=== PATIENT | male | born 1930 | race Caucasian/White ===

== ENCOUNTER 2016-11-14 07:05 | Day surgery (SDC) | payer MEDICARE ==
[2016-11-09 16:34] VITALS: BMI 25.7
[~2016-11-14 07:05] MED LIST: LACTATED RINGERS 1,000 ML IV SCH; LIDOCAINE 1% 20 ML VIAL (10MG/ML) FOR IV START INTRADERMA PRN
[2016-11-14 07:27] VITALS: TEMP 96
[2016-11-14 07:34] LABS: Glucose,Whole Blood 103 mg/dL (75-99)
[2016-11-14] MEDS ORDERED: PROPOFOL 10 MG/ML 20 ML VIAL IV ONE (07:44)
--- NOTE | 2016-11-14 08:09 | P.PCN ---
Date of Procedure: 11/14/16 Procedure(s) Performed: BRIEF HISTORY: Patient is a 86-year-old pleasant white male, scheduled for an elective colonoscopy as a part of evaluation of intermittent rectal bleeding for the last few months duration. PROCEDURE PERFORMED: Colonoscopy with biopsy. PREOPERATIVE DIAGNOSIS: Intermittent rectal bleeding. IV sedation per Anesthesia. PROCEDURE: After informed consent was obtained, the patient, was brought into the endoscopy unit. IV conscious sedation was administered by Anesthesia under continuous monitoring. Initially the Olympus CF-160 flexible video colonoscope was then inserted in the rectum, gradually advanced into the cecum without any difficulty. Careful examination was performed as the scope was gradually being withdrawn. Ileocecal valve and the appendiceal orifice were visualized and appeared normal. Prep was excellent. Mucosa of the cecum, ascending colon, transverse colon, descending colon, sigmoid colon, appeared normal. There were extensive left sided diverticulosis seen. In the distal rectum there was circumferential erythema with mild friability of the mucosa consistent with proctitis versus rectal prolapse and multiple biopsies were done from this area. Retroflexion was performed in the rectum and no lesions were seen. The patient tolerated the procedure well. IMPRESSION: Extensive left sided diverticulosis Mucosal erythema with friability noted in the distal rectum consistent with either proctitis or rectal prolapse status post multiple biopsies RECOMMENDATIONS: Findings of this examination were discussed with the patient as well as his family. He was advised to follow with the biopsy results. He will be seen in office in 2 weeks..
[2016-11-14 08:15] VITALS: RESP 16
[2016-11-14 08:53] VITALS: BP 144/83; PULSE 60
== END 2016-11-14 09:10 | disposition home or self-care (01) ==
LOC: ORWHC2ENDO 07:05
PROVIDERS: ATTEND Internal Medicine Gastroenterology
DX: K62.89 Other specified diseases of anus and rectum (principal); K57.30 Diverticulosis of large intestine without perforation or abscess without bleeding; I25.10 Atherosclerotic heart disease of native coronary artery without angina pectoris; I10 Essential (primary) hypertension; E11.9 Type 2 diabetes mellitus without complications; N40.0 Benign prostatic hyperplasia without lower urinary tract symptoms; I25.2 Old myocardial infarction; Z79.82 Long term (current) use of aspirin; Z79.899 Other long term (current) drug therapy
CPT/HCPCS: 45380; 88305; 99153

== ENCOUNTER → 2016-11-30 | Outpatient (CLI) | payer MEDICARE ==
[2016-11-30 14:32] LABS: Calcium 9.3 mg/dL (8.4-10.2); Magnesium 1.8 mg/dL (1.6-2.3); Potassium 5.4 mmol/L (3.5-5.1); Total Bilirubin 0.7 mg/dL (0.2-1.3); Total Protein 7.2 g/dL (6.3-8.2)
[2016-11-30 14:34] LABS: Basophils # (A) 0.1 k/uL (0-0.2); Basophils % (A) 1 %; CH 30.2; CHCM 31.2; Eosinophils # (A) 0.5 k/uL (0-0.7); Eosinophils % (A) 8 %; HCT 35.6 % (39.0-53.0); HDW 2.37; HGB 11.2 gm/dL (13.0-17.5); Luc # (Auto) 0.26; Luc % (Auto) 4; Lymphocytes # (A) 1.9 k/uL (1.0-4.8); Lymphocytes % (A) 30 %; MCH 30.8 pg (25.0-35.0); MCHC 31.5 g/dL (31.0-37.0); MCV 97.5 fL (80.0-100.0); Mean Platelet Volume 8.2; Monocytes # (A) 0.5 k/uL (0-1.0); Monocytes % (A) 8 %; Neutrophils # (A) 3.1 k/uL (1.3-7.7); Neutrophils % (A) 49 %; RBC 3.65 m/uL (4.30-5.90); RDW 13.8 % (11.5-15.5); WBC 6.4 k/uL (3.8-10.6); WBC (Perox) 6.19
[2016-11-30 20:15] LABS: Hemoglobin A1C 6.2 % (4.2-6.1)
== END | disposition home or self-care (01) ==
LOC: LABWHC1 14:03
PROVIDERS: ATTEND Internal Medicine Geriatric Medicine
DX: N18.9 Chronic kidney disease, unspecified (principal); E11.9 Type 2 diabetes mellitus without complications; E05.90 Thyrotoxicosis, unspecified without thyrotoxic crisis or storm
CPT/HCPCS: 36415; 80053; 80061; 83036; 83735; 84439; 84443; 85025

== ENCOUNTER → 2017-04-05 | Outpatient (CLI) | payer MEDICARE | END | disposition home or self-care (01) | LOC: RADCTMAIN 13:01 | PROVIDERS: ATTEND Psychiatry & Neurology Neurology | DX: Z01.812 Encounter for preprocedural laboratory examination (principal); G70.00 Myasthenia gravis without (acute) exacerbation; Z13.89 Encounter for screening for other disorder | CPT/HCPCS: 82565; 84520 ==

== ENCOUNTER → 2017-04-17 | Outpatient (CLI) | payer MEDICARE ==
--- NOTE | 2017-04-17 13:38 | CT ---
EXAMINATION TYPE: CT chest w con DATE OF EXAM: 04/17/2017 COMPARISON: NONE HISTORY: Ocular Myasthenia Gravis CT DLP: 520 mGycm Automated exposure control for dose reduction was used. CONTRAST: CT scan of the chest is performed with IV Contrast, patient injected with 50 ml mL of Visipaque 320. FINDINGS: LUNGS: Interstitial changes are present, there is a thickened septal pleural line, interlobular septa l thickening. No pleural or pericardial effusion. MEDIASTINUM: There are no greater than 1 cm hilar or mediastinal lymph nodes. There is a hiatal herni a, fixed partial intrathoracic stomach is noted. No pericardial effusion is seen. There are coronary artery calcifications. AORTA: No additional significant abnormality is seen. OTHER: Degenerative disc changes in the visualized spine, there is a spinal curvature. IMPRESSION: Interstitial lung disease. Hiatal hernia with fixed intrathoracic stomach, coronary art ira disease.
== END | disposition home or self-care (01) ==
LOC: RADCTMAIN 10:50
PROVIDERS: ATTEND Psychiatry & Neurology Neurology
DX: J84.9 Interstitial pulmonary disease, unspecified (principal); I25.10 Atherosclerotic heart disease of native coronary artery without angina pectoris; Z13.89 Encounter for screening for other disorder
CPT/HCPCS: 82565; 84520; 71260; 36415; Q9967

== ENCOUNTER → 2017-12-20 | Outpatient (CLI) | payer MEDICARE ==
--- NOTE | 2017-12-20 09:54 | FL ---
EXAMINATION TYPE: FL sniff test without CXR DATE OF EXAM: 12/20/2017 COMPARISON: 04/17/2017 HISTORY: Right hemidiaphragm elevation TECHNIQUE: Real-time fluoroscopy with evaluation of the hemidiaphragms. 45 seconds of fluoroscopy lacey e was utilized with 2 images saved. FINDINGS: Real-time fluoroscopy was performed to evaluate motion of the hemidiaphragms. During inspi ration, expiration, and during sniffing the hemidiaphragms moved symmetrically although there is rede monstration of right hemidiaphragm elevation. No evidence of diaphragmatic paralysis was identified. A partial intrathoracic stomach is incidentally noted. IMPRESSION: 1. No fluoroscopic evidence of diaphragmatic paralysis. Right hemidiaphragm elevation is likely physi ologic/anatomic. 2. Incidental note of a partial intrathoracic stomach.
== END | disposition home or self-care (01) ==
LOC: RADFLMAIN 08:52
PROVIDERS: ATTEND Internal Medicine Geriatric Medicine
DX: J98.6 Disorders of diaphragm (principal)
CPT/HCPCS: 76000

== ENCOUNTER 2018-01-16 05:27 | Observation (INO) | payer MEDICARE ==
--- NOTE | 2018-01-16 05:54 | ED ---
General Adult HPI - General Chief complaint: Arrhythmia/Palpitations Stated complaint: Bradycardia Time Seen by Provider: 01/16/18 05:32 Source: patient, family, EMS, RN notes reviewed Mode of arrival: EMS Limitations: no limitations - History of Present Illness Initial comments: Patient is a pleasant 87-year-old male presenting to the emergency department for bradycardia. Patient originally went to [facility] for altered mental status. Blood sugar was low at 51. EMS provided sugar with resolution of symptoms. Patient has felt fine since that time. While there patient became bradycardic in the 40s a couple of times. Patient was given atropine. Patient states he never felt bad while he was there. Patient still feels normal at this time. No weakness or confusion. No chest pain or dyspnea. Patient does take atenolol 12.5 mg daily. Patient was transferred for cardiac care and possible heart catheterization/pacemaker - Related Data Home Medications Medication Instructions Recorded Confirmed Aspirin EC [Ecotrin Low Dose] 81 mg PO QAM 11/09/16 11/14/16 Atenolol 0.5 tab PO QAM 11/09/16 11/14/16 Atorvastatin [Lipitor] 10 mg PO QAM 11/09/16 11/14/16 Celecoxib [CeleBREX] 200 mg PO BID 11/09/16 11/14/16 Famotidine [Pepcid] 20 mg PO QAM 11/09/16 11/14/16 Gabapentin [Neurontin] 100 mg PO BID 11/09/16 11/14/16 HYDROcodone/APAP 5-325MG [[place] 1 tab PO Q6HR PRN 11/09/16 11/14/16 5-325] L.acidoph,Paracasei, B.lactis 1 cap PO QAM 11/09/16 11/14/16 [Probiotic] Levothyroxine Sodium [Synthroid] 88 mcg PO QAM 11/09/16 11/14/16 Lisinopril [Prinivil] 20 mg PO BID 11/09/16 11/14/16 Mylanta 1 applic PO DIRECTED PRN 11/09/16 11/14/16 Omeprazole [PriLOSEC] 40 mg PO DAILY 11/09/16 11/14/16 Propylene Glycol/Peg 400/Pf 2 drop BOTH EYES Q1HR 11/09/16 11/14/16 [Systane 0.3-0.4% Eye Drops] Tamsulosin HCl [Flomax] 0.4 mg PO HS 11/09/16 11/14/16 amLODIPine [Norvasc] 5 mg PO BID 11/09/16 11/14/16 guaiFENesin [Mucinex] 600 mg PO HS 11/09/16 11/14/16 Allergies Allergy/AdvReac Type Severity Reaction Status Date / Time No Known Allergies Allergy Verified 11/09/16 15:28 Review of Systems ROS Statement: Those systems with pertinent positive or pertinent negative responses have been documented in the HPI. ROS Other: All systems not noted in ROS Statement are negative. Constitutional: Denies: fever Eyes: Denies: eye pain ENT: Denies: ear pain Respiratory: Denies: cough Cardiovascular: Denies: chest pain Endocrine: Denies: fatigue Gastrointestinal: Denies: abdominal pain Genitourinary: Denies: dysuria Musculoskeletal: Denies: back pain Skin: Denies: rash Neurological: Reports: confusion (Resolved). Denies: headache, weakness Past Medical History Past Medical History: Cancer, Heart Failure, Diabetes Mellitus, Eye Disorder, Hyperlipidemia, Hypertension, Myocardial Infarction ([place]), Pneumonia, Thyroid Disorder Additional Past Medical History / Comment(s): Abd pain and diarrhea, blood to stool with hemorhoids. Hx Graves disease/radioactive iodine tx, silent [place], Basal skin CA, Back pain, Double vision.Denies prostate issues. Last Myocardial Infarction Date:: unknown History of Any Multi-Drug Resistant Organisms: None Reported Past Surgical History: Adenoidectomy, Appendectomy, Heart Catheterization, Joint Replacement, Orthopedic Surgery, Tonsillectomy Additional Past Surgical History / Comment(s): Ameya catarract surg, basal cell removals, 3 lt and 1 rt knee replacements. Lt knee surg for strept infection. Past Anesthesia/Blood Transfusion Reactions: Postoperative Nausea & Vomiting ( PONV) Past Psychological History: No Psychological Hx Reported Smoking Status: Former smoker Past Alcohol Use History: None Reported Past Drug Use History: None Reported - Past Family History Father Family Medical History: Cancer Additional Family Medical History / Comment(s): Colon CA. Daughter(s) Family Medical History: Cancer Additional Family Medical History / Comment(s): Thyroid CA. General Exam Limitations: no limitations General appearance: alert, in no apparent distress Head exam: Present: atraumatic Eye exam: Present: PERRL, EOMI, other (Eyelids are droopy) ENT exam: Present: normal oropharynx Neck exam: Present: normal inspection Respiratory exam: Present: normal lung sounds bilaterally Cardiovascular Exam: Present: regular rate, normal rhythm Expanded Peripheral pulses: 2+: Radial (R), Radial (L), Dorsalis Pedis (R), Dorsalis Pedis (L) GI/Abdominal exam: Present: soft. Absent: tenderness Extremities exam: Present: normal inspection Neurological exam: Present: alert. Absent: motor sensory deficit Psychiatric exam: Present: normal affect, normal mood Skin exam: Present: normal color Course Vital Signs 01/16/18 05:29 Temperature 98.0 F Pulse Rate 62 Respiratory 16 Rate Blood Pressure 145/90 O2 Sat by Pulse 99 Oximetry EKG Findings - EKG Comments: EKG Findings:: Normal sinus rhythm 65. ND 196. QRS 98. QT 446. QTc 463. Left axis. Septal Q waves. No acute ST change. Inferior Q waves. Medical Decision Making - Medical Decision Making Patient and family were made aware of plan. Case was discussed with Dr. North who will admit for observation with cardiology consult Disposition Clinical Impression: Bradycardia Disposition: ADMITTED IP TO THIS HOSP Referrals: Eron Good MD [Primary Care Provider] - 1-2 days Decision Time: 06:03
[2018-01-16] MEDS ORDERED: NALOXONE 0.4 MG/ML 1 ML VIAL IV PRN (06:03)
[2018-01-16 06:08] LABS: Glucose,Whole Blood 94 mg/dL (75-99)
[2018-01-16] MEDS: SODIUM CHLORIDE 0.9% 1,000 ML IV SCH (06:21)
[2018-01-16 06:48] LABS: T4, Free (Free Thyroxine) 0.84 ng/dL (0.78-2.19)
[2018-01-16 08:22] VITALS: BMI 23.4
[2018-01-16 08:29] LABS: Glucose,Whole Blood 119 mg/dL (75-99)
--- NOTE | 2018-01-16 08:39 | P.CRDCN ---
History of Present Illness Consult date: 01/16/18 Chief complaint: Dizziness/change in mental status History of present illness: This is a pleasant 87-year-old gentleman who sees Dr. LISSY Monge in the office as an outpatient on regular basis with a past medical history significant for diabetes on insulin, hypertension, and hyperlipidemia, was brought to the hospital by ambulance with a change in mental status. The patient was in his usual state of health until early this morning when his noticed that he was sweating as well as he was a slightly confused. Ambulance was called and when ambulance arrived he was hypoglycemic with a blood sugar in the 50s and the patient was given glucose and was taken to the emergency room at [facility] where over there he was also bradycardic with a heart rate in the 40s and he was given atropine. Since then he has been feeling better. He did not have any symptoms of chest pain or discomfort, and no shortness of breath, and no syncope. Please note that the patient was receiving atenolol as an outpatient. During his hospitalization, he has been maintaining sinus bradycardia with a lowest heart rate of 39 beats per minute. No evidence of sinus pauses or sinus arrest at. The EKG showed sinus bradycardia with nonspecific changes only. He does have hypertension and dyslipidemia but no coronary artery disease or coronary artery vascularization. No major cardiovascular surgery before. No history of smoking or alcohol use. Past Medical History Past Medical History: Cancer, Heart Failure, Diabetes Mellitus, Eye Disorder, Hyperlipidemia, Hypertension, Myocardial Infarction ([place]), Pneumonia, Thyroid Disorder Additional Past Medical History / Comment(s): Abd pain and diarrhea, blood to stool with hemorhoids. Hx Graves disease/radioactive iodine tx, silent [place], Basal skin CA, Back pain, Double vision.Denies prostate issues. Last Myocardial Infarction Date:: unknown History of Any Multi-Drug Resistant Organisms: None Reported Past Surgical History: Adenoidectomy, Appendectomy, Heart Catheterization, Joint Replacement, Orthopedic Surgery, Tonsillectomy Additional Past Surgical History / Comment(s): Ameya catarract surg, basal cell removals, 3 lt and 1 rt knee replacements. Lt knee surg for strept infection. Past Anesthesia/Blood Transfusion Reactions: Postoperative Nausea & Vomiting ( PONV) Past Psychological History: No Psychological Hx Reported Smoking Status: Former smoker Past Alcohol Use History: None Reported Additional Past Alcohol Use History / Comment(s): Smoked 1ppd x 30 yrs, quit for 40 yrs. Past Drug Use History: None Reported - Past Family History Father Family Medical History: Cancer Additional Family Medical History / Comment(s): Colon CA. Daughter(s) Family Medical History: Cancer Additional Family Medical History / Comment(s): Thyroid CA. Medications and Allergies Home Medications Medication Instructions Recorded Confirmed Type Aspirin EC [Ecotrin Low Dose] 81 mg PO QAM 11/09/16 01/16/18 History Atenolol 25 mg PO QAM 11/09/16 01/16/18 History Atorvastatin [Lipitor] 10 mg PO QAM 11/09/16 01/16/18 History Famotidine [Pepcid] 20 mg PO QAM 11/09/16 01/16/18 History Gabapentin [Neurontin] 100 mg PO TID 11/09/16 01/16/18 History L.acidoph,Paracasei, B.lactis 1 cap PO QAM 11/09/16 01/16/18 History [Probiotic] Propylene Glycol/Peg 400/Pf 2 drop BOTH EYES Q1HR PRN 11/09/16 01/16/18 History [Systane 0.3-0.4% Eye Drops] Tamsulosin HCl [Flomax] 0.4 mg PO HS 11/09/16 01/16/18 History amLODIPine [Norvasc] 5 mg PO BID 11/09/16 01/16/18 History Fluticasone/Salmeterol [Advair 1 puff INHALATION RT-BID 01/16/18 01/16/18 History 500-50 Diskus] Hydrocodone/Acetaminophen [[place] 1 tab PO Q6HR PRN 01/16/18 01/16/18 History 7.5-325] Insulin Glargine,Hum.rec.anlog 7 units SQ DAILY 01/16/18 01/16/18 History [Lantus Solostar] Insulin Lispro [humaLOG Kwikpen] See Protocol SQ AC-TID 01/16/18 01/16/18 History Levothyroxine Sodium [Levoxyl] 100 mcg PO DIRECTED 01/16/18 01/16/18 History Mycophenolate Mofetil [Cellcept] 500 mg PO BID 01/16/18 01/16/18 History Pyridostigmine [Mestinon] 60 mg PO TID 01/16/18 01/16/18 History Sodium Bicarbonate Tab 650 mg PO DAILY 01/16/18 01/16/18 History Allergies Allergy/AdvReac Type Severity Reaction Status Date / Time No Known Allergies Allergy Verified 11/09/16 15:28 Physical Exam Vitals: Vital Signs Temp Pulse Pulse Resp BP BP Pulse Ox 01/16/18 06:49 56 L 18 139/80 97 01/16/18 06:45 98.0 F 52 L 16 142/79 98 01/16/18 05:29 98.0 F 62 16 145/90 99 Intake and Output 01/15/18 01/16/18 01/16/18 22:59 06:59 14:59 Other: Weight 69.853 kg 69.853 kg - Constitutional General appearance: no acute distress - Respiratory Respiratory: bilateral: CTA - Cardiovascular Rhythm: regular Heart sounds: normal: S1, S2 Results Current Medications Generic Name Dose Route Start Last Admin Trade Name Freq PRN Reason Stop Dose Admin Amlodipine Besylate 2.5 mg 01/16/18 09:00 Norvasc PO DAILY CODEY Sodium Chloride 1,000 mls @ 20 mls/hr 01/16/18 06:15 01/16/18 06:21 Saline 0.9% IV 20 mls/hr .Q24H CODEY Administration Naloxone HCl 0.2 mg 01/16/18 06:03 Narcan IV Q2M PRN Opioid Reversal Intake and Output 01/15/18 01/16/18 01/16/18 22:59 06:59 14:59 Other: Weight 69.853 kg 69.853 kg Patient Weight 01/17/18 06:59 Weight 69.853 kg Assessment and Plan Assessment: Assessment #1 change in mental status which is secondary to hypoglycemia and or bradycardia #2 sinus bradycardia which is likely to be iatrogenic. #3 hypertension #4 dyslipidemia #5 diabetes Plan #1 hold the atenolol which was one of the home medication.I would add Norvasc to the current medical treatment regarding sinus tachycardia #2 check the TSH to rule out any thyroid disorder #3 obtain an echocardiogram was Doppler #4 follow-up with the patient. Thank you for allowing us participate in his care and we will continue following up with the patient
[2018-01-16] MEDS ORDERED: ARTIFICIAL TEARS-HYPROMELLOSE DROPS 15 ML BTL BOTH EYES PRN (09:06)
[2018-01-16] MEDS: cefTRIAXone IN SWFI 1,000 MG/10 ML SYRINGE IVP SCH (09:38)
[2018-01-16] MEDS: AZITHROMYCIN 500 MG in SODIUM CHLORIDE 0.9% 250 ML IVPB SCH (09:39)
[2018-01-16] MEDS: amLODIPine 2.5 MG TAB PO SCH (09:40)
[2018-01-16] MEDS: SODIUM BICARBONATE TAB 650 MG TAB PO SCH (09:40)
[2018-01-16] MEDS: FAMOTIDINE 20 MG TAB PO SCH (09:40)
[2018-01-16] MEDS: PYRIDOSTIGMINE 60 MG TAB PO SCH ×3 (09:41→21:28)
[2018-01-16] MEDS: GABAPENTIN 100 MG CAP PO SCH ×3 (09:41→21:28)
[2018-01-16] MEDS: LEVOTHYROXINE 125 MCG TAB PO SCH (09:41)
[2018-01-16] MEDS: MYCOPHENOLATE MOFETIL 250 MG CAP PO SCH ×2 (09:42→19:38)
[2018-01-16 11:40] LABS: Glucose,Whole Blood 138 mg/dL (75-99)
--- NOTE | 2018-01-16 11:42 | P.HPIM ---
History of Present Illness H&P Date: 01/16/18 Chief Complaint: Mental status changes This is an 87-year-old male patient of Dr. Dr. Good and Dr. LISSY Monge with past medical history of diabetes mellitus type 2 insulin requiring, hypertension, hyperlipidemia. Patient also has history of being treated for Graves' disease and underwent radiation treatment 2 years ago. He has now under treatment for myasthenia and continues to have trouble with double vision. He follows at [facility] is currently awaiting some test and will be starting on G infusions. Regarding his diabetes, he was diagnosed with diabetes mellitus type 2 and was on diet control for a long period of time but due to large dose of prednisone he is now requiring insulin blood prednisone is being tapered. He has been on 50 and is down 5 mg every month. Last he decreased to 10 mg daily. He is currently on Lantus 7 units in the morning as well as a sliding NovoLog scale with 5 units with breakfast, 7 units with lunch and supper. Patient states he very seldom has low blood sugars. At 3 in the morning apparently his blood sugar was down to 51 and his called 911. He was taken to [facility] and was also found to have a heart rate in the 40s. Patient denies having a cough, shortness of breath or flulike symptoms. Patient has history that because of his heart rate was transferred to [facility] for evaluation by cardiology and possible need for pacemaker. Patient was strictly admitted to the selective care unit and has been seen by Dr. Hunt. Atenolol has been on hold and Norvasc added. Lab work done at [facility] showed a TSH of 7.5-4, BNP was 432, troponin was 0.017, hemoglobin 10.8, platelet count 123. Chest x-ray showed mild pulmonary edema and infiltrates in mid lung. His heart rate at [facility] was 40s to 50s. Patient's insulins have also been on hold since his admission. Heart rate is now running in the 50s and 60s is a sinus bradycardia. Review of Systems All systems: negative Constitutional: Reports lethargy, Reports weakness, Denies anorexia, Denies chills, Denies fever, Denies poor appetite, Denies weight loss Eyes: denies blurred vision, denies pain Ears, nose, mouth and throat: Denies headache, Denies sore throat Cardiovascular: Denies chest pain, Denies decreased exercise tolerance, Denies dyspnea on exertion, Denies edema, Denies leg edema, Denies lightheadedness, Denies shortness of breath, Denies syncope Respiratory: Denies cough, Denies cough with sputum, Denies dyspnea, Denies excessive sputum, Denies hemoptysis, Denies home oxygen, Denies wheezing Gastrointestinal: Denies abdominal pain, Denies diarrhea, Denies loss of appetite, Denies melena, Denies nausea, Denies vomiting Genitourinary: Denies dysuria, Denies urinary frequency Musculoskeletal: Denies frequent falls, Denies gait dysfunction, Denies myalgias Integumentary: Denies pruritus, Denies rash Neurological: Reports change in mentation, Denies numbness, Denies weakness Psychiatric: Denies anxiety, Denies depression Endocrine: Denies fatigue, Denies weight change Past Medical History Past Medical History: Cancer, Heart Failure, Diabetes Mellitus, Eye Disorder, Hyperlipidemia, Hypertension, Myocardial Infarction (MD), Pneumonia, Thyroid Disorder Additional Past Medical History / Comment(s): hemorhoids. Hx Graves disease/ radioactive iodine tx, silent MD, Basal skin CA, Back pain, myasthenia gravis Last Myocardial Infarction Date:: unknown History of Any Multi-Drug Resistant Organisms: None Reported Past Surgical History: Adenoidectomy, Appendectomy, Heart Catheterization, Joint Replacement, Orthopedic Surgery, Tonsillectomy Additional Past Surgical History / Comment(s): Ameya catarract surg, basal cell removals, 3 lt and 1 rt knee replacements. Lt knee surg for strept infection. Past Anesthesia/Blood Transfusion Reactions: Postoperative Nausea & Vomiting ( PONV) Past Psychological History: No Psychological Hx Reported Smoking Status: Former smoker Past Alcohol Use History: None Reported Additional Past Alcohol Use History / Comment(s): Smoked 1ppd x 33 yrs, quit for 40 yrs. no illicit drug use. Patient seldom drinks alcohol and if he does this one glass of wine. He lives at home with his . Past Drug Use History: None Reported - Past Family History Father Family Medical History: Cancer Additional Family Medical History / Comment(s): Colon CA. Daughter(s) Family Medical History: Cancer Additional Family Medical History / Comment(s): Thyroid CA. Brother(s) Additional Family Medical History / Comment(s): Patient does not have any brothers or sisters. Medications and Allergies Home Medications Medication Instructions Recorded Confirmed Type Aspirin EC [Ecotrin Low Dose] 81 mg PO QAM 11/09/16 01/16/18 History Atenolol 25 mg PO QAM 11/09/16 01/16/18 History Atorvastatin [Lipitor] 10 mg PO QAM 11/09/16 01/16/18 History Famotidine [Pepcid] 20 mg PO QAM 11/09/16 01/16/18 History Gabapentin [Neurontin] 100 mg PO TID 11/09/16 01/16/18 History L.acidoph,Paracasei, B.lactis 1 cap PO QAM 11/09/16 01/16/18 History [Probiotic] Propylene Glycol/Peg 400/Pf 2 drop BOTH EYES Q1HR PRN 11/09/16 01/16/18 History [Systane 0.3-0.4% Eye Drops] Tamsulosin HCl [Flomax] 0.4 mg PO HS 11/09/16 01/16/18 History amLODIPine [Norvasc] 5 mg PO BID 11/09/16 01/16/18 History Fluticasone/Salmeterol [Advair 1 puff INHALATION RT-BID 01/16/18 01/16/18 History 500-50 Diskus] Hydrocodone/Acetaminophen [[employer] 1 tab PO Q6HR PRN 01/16/18 01/16/18 History 7.5-325] Insulin Glargine,Hum.rec.anlog 7 units SQ DAILY 01/16/18 01/16/18 History [Lantus Solostar] Insulin Lispro [humaLOG Kwikpen] See Protocol SQ AC-TID 01/16/18 01/16/18 History Levothyroxine Sodium [Levoxyl] 100 mcg PO DIRECTED 01/16/18 01/16/18 History Mycophenolate Mofetil [Cellcept] 500 mg PO BID 01/16/18 01/16/18 History Pyridostigmine [Mestinon] 60 mg PO TID 01/16/18 01/16/18 History Sodium Bicarbonate Tab 650 mg PO DAILY 01/16/18 01/16/18 History Allergies Allergy/AdvReac Type Severity Reaction Status Date / Time No Known Allergies Allergy Verified 11/09/16 15:28 Physical Exam Vitals: Vital Signs Temp Pulse Pulse Resp BP BP Pulse Ox 01/16/18 08:00 57 L 18 148/85 95 01/16/18 06:49 56 L 18 139/80 97 01/16/18 06:45 98.0 F 52 L 16 142/79 98 01/16/18 05:29 98.0 F 62 16 145/90 99 Intake and Output 01/15/18 01/16/18 01/16/18 22:59 06:59 14:59 Other: Weight 69.853 kg 69.853 kg Gen: This is an 87-year-old male patient. He is in bed and appears to be comfortable and in no acute distress. HEENT: Head is atraumatic, normocephalic. Pupils equal, round. Sclerae is anicteric. NECK: Supple. No JVD. No lymphadenopathy. No thyromegaly. LUNGS: Clear to auscultation. No wheezes or rhonchi. No intercostal retractions. HEART: Regular rate and rhythm. No murmur. ABDOMEN: Soft. Bowel sounds are present. No masses. No tenderness. EXTREMITIES: No pedal edema. No calf tenderness. NEUROLOGICAL: Patient is awake, alert and oriented x3. Cranial nerves 2 through 12 are grossly intact. Results Labs: Abnormal Lab Results - Last 24 Hours (Table) 01/16/18 01/16/18 01/16/18 Range/Units 06:08 06:08 08:26 POC Glucose (mg/dL) 119 H (75-99) mg/dL TSH 12.700 H (0.465-4.680) mIU/L Free T3 pg/mL 2.4 L (2.8-5.3) pg/ml Thrombosis Risk Factor Assmnt - DVT/VTE Prophylaxis DVT/VTE Prophylaxis: Pharmacologic Prophylaxis ordered - Choose All That Apply Any of the Below Risk Factors Present?: Yes Each Factor Represents 1 point: Abnormal pulmonary function (COPD) Other Risk Factors: Yes Each Risk Factor Represents 3 Points: Age 75 years or older Thrombosis Risk Factor Assessment Total Risk Factor Score: 4 Thrombosis Risk Factor Assessment Level: Moderate Risk Assessment and Plan Plan: 1. Metabolic encephalopathy secondary to hypoglycemia. Patient has had a gradual decrease of his prednisone dosing most likely requiring less insulin at home. All his insulins are on hold at this time. The blood glucose before meals and at bedtime and 2 AM. 2. Sinus bradycardia. Cardiology consult appreciated. Echocardiogram ordered. Atenolol discontinued. 3. Infiltrate on chest x-ray done at [facility] with probable pneumonia. Repeat chest x-ray will be requested. Patient started on ceftriaxone and azithromycin. 4. Myasthenia gravis with ocular involvement. Patient follows with [facility]. Plan is for him to start IgG infusions. Patient is currently on CellCept and prednisone. Prednisone has been recently tapered and he is on 10 mg daily. 5. Diabetes mellitus type 2, insulin requiring. Insulins on hold. 6. Hypertension. Atenolol discontinued and patient placed on Norvasc by cardiology. 7. Hyperlipidemia. Continue Lipitor 10 mg daily. 8. History of Graves' disease status post radiation treatment 2 years ago with hypothyroidism. Repeat TSH and free T4 ordered. Patient is currently on levothyroxine 100 g 6 days a week and none on Sundays. Dose will be increased to 125 mg daily. 9. GI prophylaxis. Pepcid. 10. DVT prophylaxis. Heparin subcu. Patient will be admitted to the hospital for a minimum of 2 night stay. Discharge plan: Return home Impression and plan of care have been directed as dictated by the signing physician. Marleny Sylvester nurse practitioner acting as scribe for signing physician.
--- NOTE | 2018-01-16 12:28 | ECHOF ---
Referral Reason:bradycardia MEASUREMENTS -------- HEIGHT: 172.7 cm WEIGHT: 69.9 kg BP: RVIDd: 3.0 cm (< 3.3) IVSd: 1.4 cm (0.6 - 1.1) LVIDd: 4.7 cm (3.9 - 5.3) LVPWd: 1.5 cm (0.6 - 1.1) IVSs: 1.6 cm LVIDs: 4.7 cm LVPWs: 1.3 cm LA Diam: 4.3 cm (2.7 - 3.8) LAESV Index (A-L): 39.28 ml/m Ao Diam: 4.0 cm (2.0 - 3.7) AV Cusp: 1.1 cm (1.5 - 2.6) MV EXCURSION: 17.918 mm (> 18.000) MV EF SLOPE: 74 mm/s (70 - 150) EPSS: 0.8 cm MV E Dennis: 0.50 m/s MV DecT: 196 ms MV A Dennis: 0.65 m/s MV E/A Ratio: 0.77 AR PHT: 546 ms RAP: 5.00 mmHg RVSP: 28.79 mmHg FINDINGS -------- Sinus rhythm. This was a technically good study. The left ventricular size is normal. There is moderate concentric left ventricular hypertrophy. O verall left ventricular systolic function is mild-moderately impaired with, an EF between 40 - 45 %. Inferior Hypokinesis The right ventricle is normal in size. The left atrium is mildly dilated. LA is severely dilated >40 ml/m2 The right atrial size is normal. There is mild aortic valve sclerosis. There is mild aortic regurgitation. Mild mitral annular calcification present. Mild mitral regurgitation is present. Mild tricuspid regurgitation present. There is no evidence of pulmonary hypertension. The right v entricular systolic pressure, as measured by Doppler, is 28.79mmHg. There is no pulmonic regurgitation present. Aortic Root is Dilated and measures 4.0cm. There is no pericardial effusion. CONCLUSIONS -------- 1. The left ventricular size is normal. 2. There is moderate concentric left ventricular hypertrophy. 3. Overall left ventricular systolic function is mild-moderately impaired with, an EF between 40 - 45 %. 4. Inferior Hypokinesis 5. The right ventricle is normal in size. 6. The left atrium is mildly dilated. 7. LA is severely dilated >40 ml/m2 8. There is mild aortic valve sclerosis. 9. There is mild aortic regurgitation. 10. Mild mitral annular calcification present. 11. Mild mitral regurgitation is present. 12. Mild tricuspid regurgitation present. 13. There is no evidence of pulmonary hypertension. 14. The right ventricular systolic pressure, as measured by Doppler, is 28.79mmHg. 15. There is no pulmonic regurgitation present. 16. Aortic Root is Dilated and measures 4.0cm. 17. There is no pericardial effusion. DIRECTORY OPERATOR: Megan Grullon RDCS
[2018-01-16 12:40] LABS: Hemoglobin A1C 6.1 % (4.0-6.0)
[2018-01-16] MEDS: predniSONE 10 MG TAB PO SCH (12:43)
--- NOTE | 2018-01-16 14:23 | XR ---
EXAMINATION TYPE: XR chest 2V DATE OF EXAM: 01/16/2018 COMPARISON: CT chest April 17, 2017. Outside chest x-ray January 16, 2018. HISTORY: Infiltrates per order. Hypoglycemia and pneumonia. TECHNIQUE: Frontal and lateral views of the chest are obtained. FINDINGS: There is chronic emphysematous change without suspicious air space opacity, pleural effusi on, or pneumothorax seen. The cardiac silhouette size remains enlarged with atherosclerotic and ecta tic thoracic aorta . Retrocardiac opacity consistent with hiatal hernia is noted seen better on CT. The osseous structures are intact. IMPRESSION: Chronic emphysematous change and mild cardiomegaly without suspicious acute infiltrate .
[2018-01-16] MEDS ORDERED: ALBUTEROL NEBULIZED 2.5 MG/3 ML INHALATION PRN (16:27)
[2018-01-16 16:47] LABS: Glucose,Whole Blood 153 mg/dL (75-99)
[2018-01-16] MEDS: HEPARIN SODIUM,PORCINE 5,000 UNIT/ML 1 ML VIAL SQ SCH ×2 (16:55→23:38)
[2018-01-16] MEDS: HYDROcodone/APAP 7.5-325MG 1 EACH TAB PO PRN ×2 (16:56→23:39)
[2018-01-16] MEDS: SYMBICORT 160-4.5 MCG INHALER INHALATION SCH (19:36)
[2018-01-16] MEDS: ALBUTEROL NEBULIZED 2.5 MG/3 ML INHALATION SCH (19:36)
[2018-01-16 20:56] LABS: Glucose,Whole Blood 252 mg/dL (75-99)
[2018-01-16] MEDS ORDERED: TAMSULOSIN 0.4 MG CAP.ER.24H PO SCH (21:00)
[2018-01-16] MEDS ORDERED: DOCUSATE 100 MG CAP PO SCH (21:00)
[2018-01-17 02:04] LABS: Glucose,Whole Blood 131 mg/dL (75-99)
[2018-01-17] MEDS: SODIUM CHLORIDE 0.9% 1,000 ML IV SCH (05:25)
[2018-01-17 05:54] LABS: Glucose,Whole Blood 125 mg/dL (75-99)
[2018-01-17] MEDS: LEVOTHYROXINE 125 MCG TAB PO SCH (06:01)
[2018-01-17] MEDS ORDERED: LEVOTHYROXINE 100 MCG TAB PO SCH (06:30)
--- NOTE | 2018-01-17 07:34 | P.PN ---
Subjective Progress Note Date: 01/17/18 Principal diagnosis: Symptomatic bradycardia This is a pleasant 87-year-old gentleman who sees Dr. LISSY Monge in the office as an outpatient on regular basis with a past medical history significant for diabetes on insulin, hypertension, and hyperlipidemia, was brought to the hospital by ambulance with a change in mental status. The patient was in his usual state of health until early this morning when his noticed that he was sweating as well as he was a slightly confused. Ambulance was called and when ambulance arrived he was hypoglycemic with a blood sugar in the 50s and the patient was given glucose and was taken to the emergency room at [facility] where over there he was also bradycardic with a heart rate in the 40s and he was given atropine. Since then he has been feeling better. He did not have any symptoms of chest pain or discomfort, and no shortness of breath, and no syncope. Please note that the patient was receiving atenolol as an outpatient. During his hospitalization, he has been maintaining sinus bradycardia with a lowest heart rate of 39 beats per minute. No evidence of sinus pauses or sinus arrest at. The EKG showed sinus bradycardia with nonspecific changes only. We did hold the atenolol yesterday. On follow-up with the patient today, he seems to be feeling overall better. No dizziness or lightheadedness. No episode of bradycardia during his hospitalization and the lowest heart rate was in the 50s. No chest pain and no chest discomfort. No shortness of breath. The echocardiogram revealed mildly impaired LV function with an ejection fraction around 45% with aortic sclerosis and mild aortic insufficiency. No blood work results yet . From the cardiovascular standpoint overview, he can be discharged home. Objective - Vital Signs Vital signs: Vital Signs Temp 97.3 F L 01/17/18 03:30 Pulse 82 01/17/18 03:30 Resp 16 01/17/18 03:30 BP 127/77 01/17/18 03:30 Pulse Ox 94 L 01/17/18 03:30 Intake & Output 01/16/18 01/17/18 01/17/18 18:59 06:59 18:59 Intake Total 627 300 Output Total 500 Balance 627 -200 Weight 69.853 kg 72 kg Intake: Intake, IV Titration 390 Amount Azithromycin 500 mg In 250 Sodium Chloride 0.9% 250 ml @ 125 mls/hr IVPB DAILY CODEY Rx#:[id number] Sodium Chloride 0.9% 1, 140 000 ml @ 20 mls/hr IV . Q24H CODEY Rx#:[id number] Oral 237 300 Output: Urine 500 Other: Voiding Method Toilet Toilet # Voids 1 - Constitutional General appearance: Present: no acute distress - Respiratory Respiratory: bilateral: CTA - Cardiovascular Rhythm: regular Heart sounds: normal: S1, S2 Abnormal Heart Sounds: Present: systolic murmur - Labs Labs: Abnormal Lab Results - Last 24 Hours (Table) 01/16/18 01/16/18 01/16/18 Range/Units 06:08 06:08 08:26 POC Glucose (mg/dL) 119 H (75-99) mg/dL Hemoglobin A1c 6.1 H (4.0-6.0) % TSH 12.700 H (0.465-4.680) mIU/L 01/16/18 01/16/18 01/16/18 Range/Units 11:38 16:45 20:54 POC Glucose (mg/dL) 138 H 153 H 252 H (75-99) mg/dL Hemoglobin A1c (4.0-6.0) % TSH (0.465-4.680) mIU/L 01/17/18 01/17/18 Range/Units 01:51 05:53 POC Glucose (mg/dL) 131 H 125 H (75-99) mg/dL Hemoglobin A1c (4.0-6.0) % TSH (0.465-4.680) mIU/L Assessment and Plan Assessment: Assessment #1 change in mental status which is secondary to hypoglycemia and or bradycardia #2 sinus bradycardia which is likely to be iatrogenic. #3 hypertension #4 dyslipidemia #5 diabetes Plan #1 continue holding the atenolol. He was started on Norvasc and the heart rate has improved #2 the echocardiogram was reviewed and as described above #3 clinically the patient is feeling better. He can be discharged home. Thank you for allowing us participate in his care.
[2018-01-17 07:53] VITALS: RESP 18
[2018-01-17] MEDS: ALBUTEROL NEBULIZED 2.5 MG/3 ML INHALATION SCH ×2 (07:54→11:12)
[2018-01-17] MEDS: SYMBICORT 160-4.5 MCG INHALER INHALATION SCH (07:54)
[2018-01-17 08:06] LABS: HGB 10.6 gm/dL (13.0-17.5); MCH 30.8 pg (25.0-35.0); MCHC 32.1 g/dL (31.0-37.0); MCV 95.7 fL (80.0-100.0); Mean Platelet Volume 7.5; Platelet Count 126 k/uL (150-450); RBC 3.45 m/uL (4.30-5.90); RDW 14.3 % (11.5-15.5); WBC 8.1 k/uL (3.8-10.6)
[2018-01-17 08:24] LABS: Calcium 9.1 mg/dL (8.4-10.2); Potassium 4.3 mmol/L (3.5-5.1)
[2018-01-17] MEDS: HEPARIN SODIUM,PORCINE 5,000 UNIT/ML 1 ML VIAL SQ SCH (08:35)
[2018-01-17] MEDS: amLODIPine 2.5 MG TAB PO SCH (08:36)
[2018-01-17] MEDS: AZITHROMYCIN 500 MG in SODIUM CHLORIDE 0.9% 250 ML IVPB SCH (08:37)
[2018-01-17] MEDS: cefTRIAXone IN SWFI 1,000 MG/10 ML SYRINGE IVP SCH (08:37)
[2018-01-17] MEDS: FAMOTIDINE 20 MG TAB PO SCH (08:38)
[2018-01-17] MEDS: GABAPENTIN 100 MG CAP PO SCH (08:38)
[2018-01-17] MEDS: MYCOPHENOLATE MOFETIL 250 MG CAP PO SCH (08:39)
[2018-01-17] MEDS: predniSONE 10 MG TAB PO SCH (08:39)
[2018-01-17] MEDS: PYRIDOSTIGMINE 60 MG TAB PO SCH (08:39)
[2018-01-17] MEDS: SODIUM BICARBONATE TAB 650 MG TAB PO SCH (08:40)
[2018-01-17] MEDS ORDERED: ASPIRIN 81 MG PO SCH (09:00)
[2018-01-17] MEDS ORDERED: ATORVASTATIN 10 MG TAB PO SCH (09:00)
[2018-01-17] MEDS ORDERED: LACTOBACILLUS ACIDOPH & BULGAR 1 EACH PACKET PO SCH (09:00)
[2018-01-17 11:00] VITALS: BP 143/78; TEMP 96.9
[2018-01-17 11:22] VITALS: PULSE 68
[2018-01-17 12:08] LABS: Glucose,Whole Blood 151 mg/dL (75-99)
--- NOTE | 2018-01-17 13:51 | P.DS ---
Providers Date of admission: 01/16/18 06:03 Attending physician: Brittaney Serrano MD Consults: 01/16/18 06:04 Consult Physician Urgent Consulting Provider: Aure Juarez Consult Reason/Comments: bradycardia Do you want consulting provider notified?: Yes [facility] Course: This is an 87-year-old male patient of Dr. Dr. Good and Dr. LISSY Monge with past medical history of diabetes mellitus type 2 insulin requiring, hypertension, hyperlipidemia. Patient also has history of being treated for Graves' disease and underwent radiation treatment 2 years ago. He has now under treatment for myasthenia and continues to have trouble with double vision. He follows at [facility] is currently awaiting some test and will be starting on G infusions. Regarding his diabetes, he was diagnosed with diabetes mellitus type 2 and was on diet control for a long period of time but due to large dose of prednisone he is now requiring insulin blood prednisone is being tapered. He has been on 50 and is down 5 mg every month. Last he decreased to 10 mg daily. He is currently on Lantus 7 units in the morning as well as a sliding NovoLog scale with 5 units with breakfast, 7 units with lunch and supper. Patient states he very seldom has low blood sugars. At 3 in the morning apparently his blood sugar was down to 51 and his called 911. He was taken to [facility] and was also found to have a heart rate in the 40s. Patient denies having a cough, shortness of breath or flulike symptoms. Patient has history that because of his heart rate was transferred to [facility] for evaluation by cardiology and possible need for pacemaker. Patient was strictly admitted to the selective care unit and has been seen by Dr. Hunt. Atenolol has been on hold and Norvasc added. Lab work done at [facility] showed a TSH of 7.5, BNP was 432, troponin was 0.017, hemoglobin 10.8, platelet count 123. Chest x-ray showed mild pulmonary edema and infiltrates in mid lung. His heart rate at [facility] was 40s to 50s. Patient's insulins have also been on hold since his admission. Heart rate is now running in the 50s and 60s is a sinus bradycardia. Discharge diagnosis 1. Metabolic encephalopathy secondary to hypoglycemia. 2. Iatrogenic Sinus bradycardia 3. Myasthenia gravis with ocular involvement. 5. Diabetes mellitus type 2 6. Hypertension. 7. Hyperlipidemia. 8. History of Graves' disease status post radiation treatment 2 years ago with hypothyroidism CC a copy of discharge to Dr. Good. Follow-up for hypothyroidism and hypoglycemia Home with self-care Plan - Discharge Summary Discharge Rx Participant: No New Discharge Prescriptions: New Levothyroxine Sodium [Synthroid] 125 mcg PO DAILY@0630 #30 tab predniSONE 10 mg PO DAILY tab Continue L.acidoph,Paracasei, B.lactis [Probiotic] 1 cap PO QAM Tamsulosin HCl [Flomax] 0.4 mg PO HS Gabapentin [Neurontin] 100 mg PO TID Aspirin EC [Ecotrin Low Dose] 81 mg PO QAM Atorvastatin [Lipitor] 10 mg PO QAM Famotidine [Pepcid] 20 mg PO QAM Propylene Glycol/Peg 400/Pf [Systane 0.3-0.4% Eye Drops] 2 drop BOTH EYES Q1HR PRN PRN Reason: DRY EYES Sodium Bicarbonate Tab 650 mg PO DAILY Pyridostigmine [Mestinon] 60 mg PO TID Mycophenolate Mofetil [Cellcept] 500 mg PO BID Insulin Glargine,Hum.rec.anlog [Lantus Solostar] 7 units SQ DAILY Hydrocodone/Acetaminophen [[employer] 7.5-325] 1 tab PO Q6HR PRN PRN Reason: Pain Insulin Lispro [humaLOG Kwikpen] See Protocol SQ AC-TID Fluticasone/Salmeterol [Advair 500-50 Diskus] 1 puff INHALATION RT-BID Changed amLODIPine [Norvasc] 5 mg PO DAILY #0 Discontinued Atenolol 25 mg PO QAM Levothyroxine Sodium [Levoxyl] 100 mcg PO DIRECTED Discharge Medication List Aspirin EC [Ecotrin Low Dose] 81 mg PO QAM 11/09/16 [History] Atorvastatin [Lipitor] 10 mg PO QAM 11/09/16 [History] Famotidine [Pepcid] 20 mg PO QAM 11/09/16 [History] Gabapentin [Neurontin] 100 mg PO TID 11/09/16 [History] L.acidoph,Paracasei, B.lactis [Probiotic] 1 cap PO QAM 11/09/16 [History] Propylene Glycol/Peg 400/Pf [Systane 0.3-0.4% Eye Drops] 2 drop BOTH EYES Q1HR PRN 11/09/16 [History] Tamsulosin HCl [Flomax] 0.4 mg PO HS 11/09/16 [History] Fluticasone/Salmeterol [Advair 500-50 Diskus] 1 puff INHALATION RT-BID 01/16/18 [History] Hydrocodone/Acetaminophen [[employer] 7.5-325] 1 tab PO Q6HR PRN 01/16/18 [History] Insulin Glargine,Hum.rec.anlog [Lantus Solostar] 7 units SQ DAILY 01/16/18 [ History] Insulin Lispro [humaLOG Kwikpen] See Protocol SQ AC-TID 01/16/18 [History] Mycophenolate Mofetil [Cellcept] 500 mg PO BID 01/16/18 [History] Pyridostigmine [Mestinon] 60 mg PO TID 01/16/18 [History] Sodium Bicarbonate Tab 650 mg PO DAILY 01/16/18 [History] Levothyroxine Sodium [Synthroid] 125 mcg PO DAILY@0630 #30 tab 01/17/18 [Rx] amLODIPine [Norvasc] 5 mg PO DAILY #0 01/17/18 [Rx] predniSONE 10 mg PO DAILY tab 01/17/18 [Rx] Follow up Appointment(s)/Referral(s): Delmy Monge MD [STAFF PHYSICIAN] - 2 Weeks (Spoke to cashier receptionist. Office will call with appointment time) Eron Good MD [Primary Care Provider] - 1-2 days (Office is closed. Please call to make appointment) Patient Instructions/Handouts: Bradycardia (DC) Discharge Disposition: HOME SELF-CARE
[2018-01-18] MEDS ORDERED: AZITHROMYCIN 500 MG TAB PO SCH (09:00)
== END 2018-01-17 14:43 | disposition home or self-care (01) ==
LOC: EC 05:27 → 6SEL 06:03
PROVIDERS: ADMIT Internal Medicine; ATTEND Internal Medicine
DX: E11.649 Type 2 diabetes mellitus with hypoglycemia without coma (principal); G93.41 Metabolic encephalopathy; R00.1 Bradycardia, unspecified; I11.0 Hypertensive heart disease with heart failure; I50.9 Heart failure, unspecified; E78.5 Hyperlipidemia, unspecified; E03.9 Hypothyroidism, unspecified; G70.00 Myasthenia gravis without (acute) exacerbation; H57.9 Unspecified disorder of eye and adnexa; R91.8 Other nonspecific abnormal finding of lung field; I25.2 Old myocardial infarction; Z79.4 Long term (current) use of insulin; Z79.82 Long term (current) use of aspirin; Z79.890 Hormone replacement therapy; Z79.51 Long term (current) use of inhaled steroids; Z79.899 Other long term (current) drug therapy; Z86.39 Personal history of other endocrine, nutritional and metabolic disease; Z87.891 Personal history of nicotine dependence; Z92.3 Personal history of irradiation; Z87.01 Personal history of pneumonia (recurrent); Z85.828 Personal history of other malignant neoplasm of skin; Z80.0 Family history of malignant neoplasm of digestive organs; Z80.8 Family history of malignant neoplasm of other organs or systems
CPT/HCPCS: 99285 ×2; 96376 ×2; 96365; 96366 ×2; 96375; 36415; 94640 ×3; 93005; 93306; 84439; 84481; 80048; 84443; 85027; 83036; 71046; G0378 ×2; J1644 ×2; J0456 ×2; J7517 ×2; J0696 ×2; J7512 ×2

== ENCOUNTER 2020-09-25 14:23 | Inpatient (IN) | payer MEDICARE ==
[2020-09-25] MEDS ORDERED: DILTIAZEM DRIP BOLUS FROM BAG 1 MG SOLN IV ONE (14:32)
[2020-09-25] MEDS ORDERED: ASPIRIN 81 MG PO STA (14:32)
--- NOTE | 2020-09-25 14:36 | ED ---
General Adult HPI - General Chief complaint: Recheck/Abnormal Lab/Rx Stated complaint: STEMI Time Seen by Provider: 09/25/20 14:31 Source: EMS Mode of arrival: EMS Limitations: no limitations - History of Present Illness Initial comments: Is an 89-year-old male with a history of heart failure, hypertension, hyperlipidemia, myasthenia gravis, Graves' disease who presents emergency department for tachycardia. The patient has a home care nurse that came over to evaluated and stated that he appeared to be short of breath and noted that his heart rate was in the 140s. She called an ambulance and is brought to the hospital. The patient denies any shortness of breath to me. Denies any chest pain. States that he has intermittent episodes of epigastric discomfort when he eats that is relieved with belching and he states that occasionally this pain will go into his chest however nothing current. He does admit to chronic pain from arthritis and constipation. He does take [place] for pain. The patient denies a history of atrial fibrillation atrial flutter. States he sees a executive vp, Dr. Monge, regularly. Denies any lower [place] swelling. No lightheadedness. No other complaints currently. - Related Data Home Medications Medication Instructions Recorded Confirmed Atorvastatin [Lipitor] 10 mg PO QAM 11/09/16 09/25/20 Gabapentin [Neurontin] 200 mg PO HS 11/09/16 09/25/20 Fluticasone/Salmeterol [Advair 1 puff INHALATION RT-BID PRN 01/16/18 09/25/20 500-50 Diskus] Pyridostigmine [Mestinon] 60 mg PO TID PRN 01/16/18 09/25/20 Sodium Bicarbonate Tab 650 mg PO DAILY PRN 01/16/18 09/25/20 Albuterol Sulfate [Proair Hfa] 1 - 2 puff INHALATION RT-Q8H PRN 09/25/20 09/25/20 Bismuth Subsalicylate 524 mg PO Q1H PRN MDD 240MLS 09/25/20 09/25/20 [Pepto-Bismol] HYDROcodone/APAP 10-325MG [[place] 0.5 tab PO Q4HR PRN 09/25/20 09/25/20 10-325] Levothyroxine Sodium [Synthroid] 125 mcg PO DAILY 09/25/20 09/25/20 Metoprolol Tartrate [Lopressor] 12.5 mg PO DAILY 09/25/20 09/25/20 Omeprazole 20 mg PO DAILY 09/25/20 09/25/20 Pyridostigmine [place] 180 mg PO BID 09/25/20 09/25/20 [Pyridostigmine [place] ER] Repaglinide [Prandin] 2 mg PO DAILY 09/25/20 09/25/20 Simethicone [Gas-X] 125 mg PO Q4H PRN 09/25/20 09/25/20 amLODIPine [Norvasc] 5 mg PO DAILY PRN 09/25/20 09/25/20 Allergies Allergy/AdvReac Type Severity Reaction Status Date / Time No Known Allergies Allergy Verified 09/25/20 15:08 Review of Systems ROS Statement: Those systems with pertinent positive or pertinent negative responses have been documented in the HPI. ROS Other: All systems not noted in ROS Statement are negative. Past Medical History Past Medical History: Cancer, Heart Failure, Diabetes Mellitus, Eye Disorder, Hyperlipidemia, Hypertension, Myocardial Infarction ([place]), Pneumonia, Thyroid Disorder Additional Past Medical History / Comment(s): hemorhoids. Hx Graves disease/radioactive iodine tx, silent CT, Basal skin CA, Back pain, myasthenia gravis Last Myocardial Infarction Date:: unknown History of Any Multi-Drug Resistant Organisms: None Reported Past Surgical History: Adenoidectomy, Appendectomy, Heart Catheterization, Joint Replacement, Orthopedic Surgery, Tonsillectomy Additional Past Surgical History / Comment(s): Ameya catarract surg, basal cell removals, 3 lt and 1 rt knee replacements. Lt knee surg for strept infection. Past Anesthesia/Blood Transfusion Reactions: Postoperative Nausea & Vomiting (PONV) Past Psychological History: No Psychological Hx Reported Smoking Status: Former smoker Past Alcohol Use History: None Reported Past Drug Use History: None Reported - Past Family History Father Family Medical History: Cancer Additional Family Medical History / Comment(s): Colon CA. Daughter(s) Family Medical History: Cancer Additional Family Medical History / Comment(s): Thyroid CA. Brother(s) Additional Family Medical History / Comment(s): Patient does not have any brothers or sisters. General Exam - General Exam Comments Initial Comments: Constitutional: Awake alert Appears comfortable Head: Normocephalic atraumatic Eyes: no conjunctival injection No scleral icterus EOMI, proptosis Neck: No JVD Supple Heart: Tachycardia normal S1-S2 no murmurs Lungs: Decreased breath sounds left base with rales No wheezing Abdomen: Soft nondistended nontender Extremities: Non edematous DP pulses intact Radial pulses intact Neuro: A&Ox3 No focal neurologic deficits Psych: Appropriate mood and affect Limitations: no limitations Course Vital Signs 09/25/20 09/25/20 09/25/20 14:24 14:50 15:00 Temperature 97.8 F Pulse Rate 149 H 111 H 121 H Respiratory 22 22 20 Rate Blood Pressure 121/91 98/72 94/69 O2 Sat by Pulse 98 98 Oximetry 09/25/20 09/25/20 09/25/20 15:10 15:45 16:00 Temperature Pulse Rate 133 H 109 H 118 H Respiratory 20 20 20 Rate Blood Pressure 98/67 94/65 96/77 O2 Sat by Pulse 98 98 98 Oximetry 09/25/20 09/25/20 16:15 16:30 Temperature Pulse Rate 109 H 120 H Respiratory 20 20 Rate Blood Pressure 98/79 96/78 O2 Sat by Pulse 98 98 Oximetry - Reevaluation(s) Reevaluation #1: 09/25/20 15:54 Pt with what appears to be new atrial flutter. HR improved to 110-130s after Cardizem. Appears to be dehydrated on labs. BP went down with initial cardizem bolus. Improved with 500cc fluids. EKG with HR of 114 with what appears to be flutter waves. 09/25/20 15:56 EKG Findings - EKG Comments: EKG Findings:: EKG is showing what appears to be atrial flutter with a rate of 148. There appears to be a left bundle-branch block pattern. I do not appreciate any ST depressions. There are diffuse elevations in V1 through V5. Appears to be flutter waves in V1. QTC is 477. Other intervals are normal. Patient does have 1 PVC. Medical Decision Making - Medical Decision Making Is an 89-year-old male who says emergency department for tachycardia. The patient really had no symptoms on arrival. He did complain of a little bit of a cough afterwards. The patient did not. Ill-appearing. No respiratory distr ess or dyspnea. His oxygen saturations were normal. The patient initially had a heart rate in the 140s. He was given 10 mg of Cardizem improved into the 112 however slowly worsened again to the 130s. Blood pressure did go down into the 80s over 50s at one point. He is given 1 L of fluid with improvement however his heart rate continued to be an issue. The patient was then switched over to amiodarone. The patient did have a significant leukocytosis and also chest x- ray concerning for left-sided pneumonia. The patient was started on Rocephin and azithromycin for community acquired pneumonia coverage. The patient will be admitted for further management. I spoke with Dr. Shah who recommended an echocardiogram, repeat troponin, and cardiology and pulmonology consultations. These were all placed. At this time the patient is well-appearing. We'll continue on amiodarone for rate and rhythm control. Patient will be admitted for further evaluation and treatment. - Lab Data Result diagrams: 09/25/20 14:37 09/25/20 14:37 Lab Results 09/25/20 09/25/20 09/25/20 Range/Units 14:36 14:37 14:37 WBC 35.7 H (3.8-10.6) k/uL RBC 3.39 L (4.30-5.90) m/uL Hgb 9.5 L (13.0-17.5) gm/dL Hct 30.0 L (39.0-53.0) % MCV 88.8 (80.0-100.0) fL MCH 28.1 (25.0-35.0) pg MCHC 31.7 (31.0-37.0) g/dL RDW 15.1 (11.5-15.5) % Plt Count 222 (150-450) k/uL MPV 8.1 Neutrophils % (Manual) 75 % Band Neuts % (Manual) 12 % Lymphocytes % (Manual) 13 % Neutrophils # (Manual) 31.00 H (1.3-7.7) k/uL Lymphocytes # (Manual) 4.64 (1.0-4.8) k/uL Nucleated RBCs 0 (0-0) /100 WBC Manual Slide Review Performed Poikilocytosis (manual Present PT (9.0-12.0) sec INR (<1.2) APTT (22.0-30.0) sec Sodium 142 (137-145) mmol/L Potassium 5.6 H (3.5-5.1) mmol/L Chloride 118 H (98-107) mmol/L Carbon Dioxide 18 L (22-30) mmol/L Anion Gap 6 mmol/L BUN 62 H (9-20) mg/dL Creatinine 2.02 H (0.66-1.25) mg/dL Est GFR (CKD-EPI)AfAm 33 (>60 ml/min/1.73 sqM) Est GFR (CKD-EPI)NonAf 29 (>60 ml/min/1.73 sqM) Glucose 86 (74-99) mg/dL Plasma Lactic Acid [place] 1.9 (0.7-2.0) mmol/L Calcium 9.7 (8.4-10.2) mg/dL Magnesium 1.7 (1.6-2.3) mg/dL Total Bilirubin 0.5 (0.2-1.3) mg/dL AST 40 (17-59) U/L ALT 44 (4-49) U/L Alkaline Phosphatase 74 (38-126) U/L Troponin I (0.000-0.034) ng/mL NT-Pro-B Natriuret Pep pg/mL Total Protein 7.3 (6.3-8.2) g/dL Albumin 3.6 (3.5-5.0) g/dL Lipase 116 (23-300) U/L TSH 0.140 L (0.465-4.680) mIU/L Free T4 1.78 (0.78-2.19) ng/dL 09/25/20 09/25/20 09/25/20 Range/Units 14:37 14:37 14:37 WBC (3.8-10.6) k/uL RBC (4.30-5.90) m/uL Hgb (13.0-17.5) gm/dL Hct (39.0-53.0) % MCV (80.0-100.0) fL MCH (25.0-35.0) pg MCHC (31.0-37.0) g/dL RDW (11.5-15.5) % Plt Count (150-450) k/uL MPV Neutrophils % (Manual) % Band Neuts % (Manual) % Lymphocytes % (Manual) % Neutrophils # (Manual) (1.3-7.7) k/uL Lymphocytes # (Manual) (1.0-4.8) k/uL Nucleated RBCs (0-0) /100 WBC Manual Slide Review Poikilocytosis (manual PT 12.2 H (9.0-12.0) sec INR 1.2 H (<1.2) APTT 30.2 H (22.0-30.0) sec Sodium (137-145) mmol/L Potassium (3.5-5.1) mmol/L Chloride (98-107) mmol/L Carbon Dioxide (22-30) mmol/L Anion Gap mmol/L BUN (9-20) mg/dL Creatinine (0.66-1.25) mg/dL Est GFR (CKD-EPI)AfAm (>60 ml/min/1.73 sqM) Est GFR (CKD-EPI)NonAf (>60 ml/min/1.73 sqM) Glucose (74-99) mg/dL Plasma Lactic Acid [place] (0.7-2.0) mmol/L Calcium (8.4-10.2) mg/dL Magnesium (1.6-2.3) mg/dL Total Bilirubin (0.2-1.3) mg/dL AST (17-59) U/L ALT (4-49) U/L Alkaline Phosphatase (38-126) U/L Troponin I 0.052 H* (0.000-0.034) ng/mL NT-Pro-B Natriuret Pep 8320 pg/mL Total Protein (6.3-8.2) g/dL Albumin (3.5-5.0) g/dL Lipase (23-300) U/L TSH (0.465-4.680) mIU/L Free T4 (0.78-2.19) ng/dL Critical Care Time Critical Care Time: Yes Total Critical Care Time: 45 Critical Care Time: Critical care time was spent obtaining history and examining the patient, reviewing labs and imaging that was ordered. Ordering medications and reevaluating the patient. Reevaluating the patient's response to medications. Specifically evaluating the patient for H of fibrillation/atrial flutter with rapid rate. The patient was started on amiodarone, Cardizem, and heparin at one point during his stay. Also discussion with admitting provider. Disposition Clinical Impression: Atrial flutter, CAP (community acquired pneumonia), Elevated troponin Disposition: ADMITTED IP TO THIS HOSP Condition: Stable Referrals: Eron Good MD [Primary Care Provider] - 1-2 days Decision to Admit Reason: Admit from EC
[2020-09-25] MEDS: SODIUM CHLORIDE 0.9% 1,000 ML IV SCH (14:46)
[2020-09-25] MEDS ORDERED: DILTIAZEM 125 MG in SODIUM CHLORIDE 0.9% 100 ML IV SCH (15:00)
[2020-09-25 15:08] LABS: HGB 9.5 gm/dL (13.0-17.5); MCH 28.1 pg (25.0-35.0); MCHC 31.7 g/dL (31.0-37.0); MCV 88.8 fL (80.0-100.0); Mean Platelet Volume 8.1; Platelet Count 222 k/uL (150-450); RBC 3.39 m/uL (4.30-5.90); RDW 15.1 % (11.5-15.5); WBC 35.7 k/uL (3.8-10.6)
[2020-09-25 15:09] LABS: INR 1.2 (<1.2); Partial Thromboplastin Time 30.2 sec (22.0-30.0); Prothrombin Time 12.2 sec (9.0-12.0)
[2020-09-25 15:11] LABS: Albumin 3.6 g/dL (3.5-5.0); Calcium 9.7 mg/dL (8.4-10.2); Magnesium 1.7 mg/dL (1.6-2.3); Potassium 5.6 mmol/L (3.5-5.1); Total Bilirubin 0.5 mg/dL (0.2-1.3); Total Protein 7.3 g/dL (6.3-8.2)
[2020-09-25] MEDS ORDERED: CALCIUM GLUCONATE 1 GM in SODIUM CHLORIDE 0.9% 100 ML IVPB ONE (15:19)
[2020-09-25 15:41] LABS: Band Neutrophils % 12 %; Lymphocytes # (M) 4.64 k/uL (1.0-4.8); Neutrophils % (M) 75 %; Nucleated Red Blood Cells 0 /100 WBC (0-0); Total Cells Counted 100
[2020-09-25 15:42] LABS: Poikilocytosis (M) Present
[2020-09-25] MEDS ORDERED: SODIUM CHLORIDE 0.9% 500 ML 500 ML IV STA (15:45)
--- NOTE | 2020-09-25 15:47 | XR ---
EXAMINATION TYPE: XR chest 1V portable DATE OF EXAM: 09/25/2020 COMPARISON: 01/16/2018 HISTORY: Atrial flutter TECHNIQUE: FINDINGS: There is some patchy airspace infiltrate in the left mid and lower lung field. There is coa rsening of interstitial markings. There is mild blunting of the costophrenic angles. There are chest leads. IMPRESSION: There is some left lower lobe pneumonia increased compared to old exam. There is probably underlying pulmonary fibrosis. Pleural diaphragmatic scarring at the lung bases unchanged. No defini te heart failure.
[2020-09-25] MEDS ORDERED: AZITHROMYCIN 500 MG in SODIUM CHLORIDE 0.9% 250 ML IVPB STA (15:50)
[2020-09-25] MEDS ORDERED: HEPARIN SODIUM,PORCINE 5,000 UNIT/ML 1 ML VIAL IV PRN (15:50)
[2020-09-25] MEDS ORDERED: cefTRIAXone IN SWFI 1,000 MG/10 ML SYRINGE IVP STA (15:50)
[2020-09-25] MEDS ORDERED: HEPARIN SODIUM,PORCINE 5,000 UNIT/ML 1 ML VIAL IV ONE (15:50)
[2020-09-25] MEDS ORDERED: HEPARIN SOD,PORK IN 0.45% NACL 25,000 UNIT in 0.45% NACL 1 250ML.BAG IV SCH (16:00)
[2020-09-25 16:16] LABS: T4, Free (Free Thyroxine) 1.78 ng/dL (0.78-2.19)
[2020-09-25] MEDS ORDERED: DEXTROSE 5% IN WATER 100 ML with AMIODARONE 150 MG IV ONE (16:48)
[2020-09-25] MEDS ORDERED: NALOXONE 0.4 MG/ML 1 ML VIAL IV PRN (16:59)
[2020-09-25] MEDS ORDERED: AMIODARONE 360 MG in DEXTROSE 5% IN WATER 200 ML IV ONE ×2 (17:17)
[2020-09-25 17:33] LABS: Appearance,Urine Clear (Clear); Bilirubin,Urine Negative (Negative); Blood,Urine Negative (Negative); Color,Urine Yellow; Glucose,Urine (UA) Negative (Negative); Granular Casts,Urine 4 /lpf (0); Hyaline Casts,Urine 3 /lpf (0-2); Ketones,Urine Negative (Negative); Leukocyte Esterase,Urine Moderate (Negative); Mucus,Urine Rare /hpf; Nitrite,Urine Negative (Negative); PH, Urine 5.5 (5.0-8.0); Protein,Urine 2+ (Negative); RBC,Urine 1 /hpf (0-5); Specific Gravity,Urine 1.018 (1.001-1.035); Squamous Epithelial Cell,Urine <1 /hpf (0-4); Urobilinogen,Urine <2.0 mg/dL (<2.0); WBC,Urine 8 /hpf (0-5)
[2020-09-25] MEDS ORDERED: amLODIPine 5 MG TAB PO PRN (18:30)
[2020-09-25] MEDS ORDERED: SODIUM BICARBONATE TAB 650 MG TAB PO PRN (18:30)
[2020-09-25] MEDS ORDERED: BISMUTH SUBSALICYLATE 4,192 MG/240 ML BOTTLE PO PRN (18:30)
[2020-09-25] MEDS ORDERED: SIMETHICONE 80 MG CHEWABLE PO PRN (18:30)
[2020-09-25] MEDS ORDERED: SYMBICORT 160-4.5 MCG INHALER INHALATION PRN (18:30)
[2020-09-25] MEDS ORDERED: PYRIDOSTIGMINE 60 MG TAB PO PRN (18:30)
[2020-09-25] MEDS: HYDROcodone/APAP 10-325MG 1 EACH TAB PO PRN (18:50)
[2020-09-25] MEDS: PYRIDOSTIGMINE 60 MG TAB PO SCH (19:52)
[2020-09-25] MEDS: GABAPENTIN 100 MG CAP PO SCH (19:52)
[2020-09-25] MEDS: ALBUTEROL NEBULIZED 2.5 MG/3 ML INHALATION PRN ×2 (20:37→23:52)
[2020-09-25 20:40] LABS: Glucose,Whole Blood 134 mg/dL (75-99)
[2020-09-25] MEDS ORDERED: PYRIDOSTIGMINE 60 MG TAB PO SCH (21:00)
[2020-09-25] MEDS: AMIODARONE 300 MG in DEXTROSE 5% IN WATER 250 ML IV SCH ×2 (23:40)
[2020-09-26] MEDS: SODIUM CHLORIDE 0.9% 1,000 ML IV SCH ×2 (04:28→16:55)
[2020-09-26] MEDS: ALBUTEROL NEBULIZED 2.5 MG/3 ML INHALATION PRN (05:30)
[2020-09-26] MEDS ORDERED: FUROSEMIDE 10 MG/ML 4 ML VIAL IV STA (05:34)
[2020-09-26] MEDS ORDERED: ALBUTEROL NEBULIZED 2.5 MG/3 ML INHALATION PRN (05:35)
[2020-09-26] MEDS: HYDROcodone/APAP 10-325MG 1 EACH TAB PO PRN ×6 (05:57→23:38)
[2020-09-26] MEDS: methylPREDNISolone SOD SUCCI 125 MG/2 ML VIAL IV SCH ×2 (05:57→11:55)
[2020-09-26] MEDS: PYRIDOSTIGMINE 60 MG TAB PO SCH ×2 (06:14→17:38)
[2020-09-26] MEDS: PANTOPRAZOLE 40 MG TABLET PO SCH (06:15)
[2020-09-26] MEDS: LEVOTHYROXINE 125 MCG TAB PO SCH (06:15)
[2020-09-26 06:29] LABS: Glucose,Whole Blood 170 mg/dL (75-99)
[2020-09-26] MEDS: ATORVASTATIN 10 MG TAB PO SCH (08:02)
[2020-09-26] MEDS ORDERED: METOPROLOL TARTRATE 12.5 MG TAB PO SCH (09:00)
[2020-09-26] MEDS: AMIODARONE 200 MG TAB PO SCH ×4 (09:51→21:51)
[2020-09-26] MEDS: REPAGLINIDE 1 MG TAB PO SCH (09:51)
[2020-09-26] MEDS: AMIODARONE 300 MG in DEXTROSE 5% IN WATER 250 ML IV SCH ×2 (09:55)
[2020-09-26 10:41] LABS: Basophils # (A) 0.4 k/uL (0-0.2); Basophils % (A) 1 %; Eosinophils # (A) 0.1 k/uL (0-0.7); Eosinophils % (A) 0 %; HCT 31.1 % (39.0-53.0); HGB 9.7 gm/dL (13.0-17.5); Hypochromasia Marked; Lymphocytes # (A) 0.2 k/uL (1.0-4.8); Lymphocytes % (A) 0 %; MCH 29.2 pg (25.0-35.0); MCHC 31.1 g/dL (31.0-37.0); MCV 93.8 fL (80.0-100.0); Mean Platelet Volume 8.4; Monocytes # (A) 2.7 k/uL (0-1.0); Monocytes % (A) 7 %; Neutrophils # (A) 32.1 k/uL (1.3-7.7); Neutrophils % (A) 88 %; Platelet Count 211 k/uL (150-450); RBC 3.32 m/uL (4.30-5.90); RDW 14.7 % (11.5-15.5); WBC 36.3 k/uL (3.8-10.6)
--- NOTE | 2020-09-26 10:46 | P.HPIM ---
History of Present Illness H&P Date: 09/26/20 Chief Complaint: tachycardia This is an 89-year-old male patient of Dr. Good and Dr. Monge with past medical history of diabetes mellitus type 2, hypertension, hyperlipidemia, Graves' disease, status post radiation treatment, and myasthenia. Patient was seen in the office about 2 weeks ago for generalized weakness and a near syncopal episode. Patient did have a 24-hour Holter monitor which did not reveal any A. fib or flutter at that time. His also tested for Covid which was negative. Patient was also having low blood sugar readings, Prandin was held. Home care was ordered. Homecare came to evaluate the patient and the nurse found his heart rate to be in the 140s so EMS was called. Initial EKG showed atrial flutter with a rate of 148. He was given a 10 mg bolus of Cardizem, patient became hypotensive in the 80s/50s. He was then switched to amiodarone. Chest x-ray showed left lower lobe pneumonia, he was started on Solu-Medrol, along with ceftriaxone and azithromycin. Repeat Covid test was negative. Troponin was elevated 0.052, 0.055. WBC 35.7, hemoglobin 9.5, potassium 5.6, BUN 62, creatinine 2.02. Pulmonology along with cardiology have been consulted, will obtain echocardiogram. Hematology was also consulted for leukocytosis. Review of Systems Constitutional: Reports fatigue, Reports malaise, Reports weakness, Denies chills, Denies fever Ears, nose, mouth and throat: Denies dysphagia, Denies headache, Denies nasal congestion, Denies nasal discharge, Denies sinus pain, Denies sinus pressure, Denies sore throat Cardiovascular: Reports rapid heart beat, Reports shortness of breath, Denies chest pain, Denies edema, Denies leg edema, Denies orthopnea, Denies syncope Respiratory: Reports cough, Reports cough with sputum, Reports dyspnea Gastrointestinal: Denies constipation, Denies diarrhea, Denies dyspepsia, Denies heartburn, Denies nausea, Denies vomiting Musculoskeletal: Reports muscle weakness, Denies fractures, Denies frequent falls, Denies leg numbness/tingling, Denies myalgias Integumentary: Denies lesions, Denies pruritus, Denies rash, Denies wounds Neurological: Reports weakness, Denies confusion, Denies double vision, Denies loss of vision, Denies memory loss, Denies numbness, Denies paralysis, Denies syncope Past Medical History Past Medical History: Cancer, Heart Failure, Diabetes Mellitus, Eye Disorder, Hyperlipidemia, Hypertension, Myocardial Infarction ([place]), Pneumonia, Thyroid Disorder Additional Past Medical History / Comment(s): hemorhoids. Hx Graves disease/radioactive iodine tx, silent [place], Basal skin CA, Back pain, myasthenia gravis Last Myocardial Infarction Date:: unknown History of Any Multi-Drug Resistant Organisms: None Reported Past Surgical History: Adenoidectomy, Appendectomy, Heart Catheterization, Joint Replacement, Orthopedic Surgery, Tonsillectomy Additional Past Surgical History / Comment(s): Ameya catarract surg, basal cell removals, 3 lt and 1 rt knee replacements. Lt knee surg for strept infection. Past Anesthesia/Blood Transfusion Reactions: Postoperative Nausea & Vomiting (PONV) Past Psychological History: No Psychological Hx Reported Smoking Status: Former smoker Past Alcohol Use History: None Reported Additional Past Alcohol Use History / Comment(s): Smoked 1ppd x 33 yrs, quit for 40 yrs. no illicit drug use. Patient seldom drinks alcohol and if he does this one glass of wine. He lives at home with his . Past Drug Use History: None Reported - Past Family History Father Family Medical History: Cancer Additional Family Medical History / Comment(s): Colon CA. Daughter(s) Family Medical History: Cancer Additional Family Medical History / Comment(s): Thyroid CA. Brother(s) Additional Family Medical History / Comment(s): Patient does not have any brothers or sisters. Medications and Allergies Home Medications Medication Instructions Recorded Confirmed Type Atorvastatin [Lipitor] 10 mg PO QAM 11/09/16 09/25/20 History Gabapentin [Neurontin] 200 mg PO HS 11/09/16 09/25/20 History Fluticasone/Salmeterol [Advair 1 puff INHALATION RT-BID PRN 01/16/18 09/25/20 History 500-50 Diskus] Pyridostigmine [Mestinon] 60 mg PO TID PRN 01/16/18 09/25/20 History Sodium Bicarbonate Tab 650 mg PO DAILY PRN 01/16/18 09/25/20 History Albuterol Sulfate [Proair Hfa] 1 - 2 puff INHALATION RT-Q8H PRN 09/25/20 09/25/20 History Bismuth Subsalicylate 524 mg PO Q1H PRN MDD 240MLS 09/25/20 09/25/20 History [Pepto-Bismol] HYDROcodone/APAP 10-325MG [[place] 0.5 tab PO Q4HR PRN 09/25/20 09/25/20 History 10-325] Levothyroxine Sodium [Synthroid] 125 mcg PO DAILY 09/25/20 09/25/20 History Metoprolol Tartrate [Lopressor] 12.5 mg PO DAILY 09/25/20 09/25/20 History Omeprazole 20 mg PO DAILY 09/25/20 09/25/20 History Pyridostigmine [place] 180 mg PO BID 09/25/20 09/25/20 History [Pyridostigmine [place] ER] Repaglinide [Prandin] 2 mg PO DAILY 09/25/20 09/25/20 History Simethicone [Gas-X] 125 mg PO Q4H PRN 09/25/20 09/25/20 History amLODIPine [Norvasc] 5 mg PO DAILY PRN 09/25/20 09/25/20 History Apixaban [Eliquis] 2.5 mg PO BID #60 tab 09/26/20 Rx Allergies Allergy/AdvReac Type Severity Reaction Status Date / Time No Known Allergies Allergy Verified 09/25/20 15:08 Physical Exam Vitals: Vital Signs Temp Pulse Pulse Resp BP BP BP 09/26/20 08:00 136 H 18 09/26/20 07:55 97.6 F 136 H 18 103/71 09/26/20 06:03 128 H 09/26/20 05:31 128 H 09/26/20 03:04 97.5 F L 118 H 20 114/78 09/26/20 00:03 110 H 20 09/25/20 23:54 111 H 20 09/25/20 23:52 109 H 20 120/71 09/25/20 21:00 82 09/25/20 20:39 82 09/25/20 20:00 97.6 F 136 H 22 133/71 09/25/20 18:35 97.0 F L 90 18 112/68 09/25/20 17:34 101 H 20 105/59 09/25/20 17:15 129 H 20 95/77 09/25/20 16:30 120 H 20 96/78 09/25/20 16:15 109 H 20 98/79 09/25/20 16:00 118 H 20 96/77 09/25/20 15:45 109 H 20 94/65 09/25/20 15:10 133 H 20 98/67 09/25/20 15:00 121 H 20 94/69 09/25/20 14:50 111 H 22 98/72 09/25/20 14:24 97.8 F 149 H 22 121/91 Pulse Ox 09/26/20 08:00 09/26/20 07:55 94 L 09/26/20 06:03 09/26/20 05:31 09/26/20 03:04 97 09/26/20 00:03 09/25/20 23:54 09/25/20 23:52 97 09/25/20 21:00 09/25/20 20:39 98 09/25/20 20:00 97 09/25/20 18:35 100 09/25/20 17:34 100 09/25/20 17:15 97 09/25/20 16:30 98 09/25/20 16:15 98 09/25/20 16:00 98 09/25/20 15:45 98 09/25/20 15:10 98 09/25/20 15:00 98 09/25/20 14:50 98 09/25/20 14:24 Intake and Output 09/25/20 09/26/20 09/26/20 22:59 06:59 14:59 Intake Total 60.203 Output Total 100 Balance -39.797 Intake: Intake, IV Titration 60.203 Amount Heparin Sod,Pork in 0.45% 60.203 NaCl 25,000 unit In 0.45 % NaCl 1 250ml.bag @ 12 UNITS/KG/HR 8.045 mls/hr IV .Q24H [facility] Rx#: [id number] Output: Urine 100 Other: Voiding Method Urinal Urinal # Voids 140 Weight 67.041 kg 69.5 kg - Constitutional General appearance: cooperative, no acute distress - EENT Eyes: PERRLA ENT: hard of hearing, normal oropharynx - Neck Neck: no lymphadenopathy, normal ROM - Respiratory Respiratory: left: diminished, rhonchi - Cardiovascular Rhythm: irregularly irregular Heart sounds: normal: S1, S2 - Gastrointestinal General gastrointestinal: no distended, no organomegaly, soft, no tenderness - Neurologic Neurologic: CNII-XII intact - Musculoskeletal Musculoskeletal: generalized weakness, strength equal bilaterally, no right sided weakness, no left sided weakness - Psychiatric Psychiatric: A&O x's 3, appropriate affect, intact judgment & insight Results CBC & Chem 7: 09/25/20 14:37 09/25/20 14:37 Labs: Abnormal Lab Results - Last 24 Hours (Table) 09/25/20 09/25/20 09/25/20 Range/Units 14:37 14:37 14:37 WBC 35.7 H (3.8-10.6) k/uL RBC 3.39 L (4.30-5.90) m/uL Hgb 9.5 L (13.0-17.5) gm/dL Hct 30.0 L (39.0-53.0) % Neutrophils # (Manual) 31.00 H (1.3-7.7) k/uL PT 12.2 H (9.0-12.0) sec INR 1.2 H (<1.2) APTT 30.2 H (22.0-30.0) sec Potassium 5.6 H (3.5-5.1) mmol/L Chloride 118 H (98-107) mmol/L Carbon Dioxide 18 L (22-30) mmol/L BUN 62 H (9-20) mg/dL Creatinine 2.02 H (0.66-1.25) mg/dL POC Glucose (mg/dL) (75-99) mg/dL Troponin I (0.000-0.034) ng/mL TSH 0.140 L (0.465-4.680) mIU/L Urine Protein (Negative) Ur Leukocyte Esterase (Negative) Urine WBC (0-5) /hpf Hyaline Casts (0-2) /lpf Urine Mucus (None) /hpf 09/25/20 09/25/20 09/25/20 Range/Units 14:37 17:26 17:33 WBC (3.8-10.6) k/uL RBC (4.30-5.90) m/uL Hgb (13.0-17.5) gm/dL Hct (39.0-53.0) % Neutrophils # (Manual) (1.3-7.7) k/uL PT (9.0-12.0) sec INR (<1.2) APTT (22.0-30.0) sec Potassium (3.5-5.1) mmol/L Chloride (98-107) mmol/L Carbon Dioxide (22-30) mmol/L BUN (9-20) mg/dL Creatinine (0.66-1.25) mg/dL POC Glucose (mg/dL) (75-99) mg/dL Troponin I 0.052 H* 0.055 H* (0.000-0.034) ng/mL TSH (0.465-4.680) mIU/L Urine Protein 2+ H (Negative) Ur Leukocyte Esterase Moderate H (Negative) Urine WBC 8 H (0-5) /hpf Hyaline Casts 3 H (0-2) /lpf Urine Mucus Rare H (None) /hpf 09/25/20 09/25/20 09/26/20 Range/Units 20:32 22:18 06:19 WBC (3.8-10.6) k/uL RBC (4.30-5.90) m/uL Hgb (13.0-17.5) gm/dL Hct (39.0-53.0) % Neutrophils # (Manual) (1.3-7.7) k/uL PT (9.0-12.0) sec INR (<1.2) APTT 66.1 H (22.0-30.0) sec Potassium (3.5-5.1) mmol/L Chloride (98-107) mmol/L Carbon Dioxide (22-30) mmol/L BUN (9-20) mg/dL Creatinine (0.66-1.25) mg/dL POC Glucose (mg/dL) 134 H 170 H (75-99) mg/dL Troponin I (0.000-0.034) ng/mL TSH (0.465-4.680) mIU/L Urine Protein (Negative) Ur Leukocyte Esterase (Negative) Urine WBC (0-5) /hpf Hyaline Casts (0-2) /lpf Urine Mucus (None) /hpf 09/26/20 Range/Units 09:09 WBC (3.8-10.6) k/uL RBC (4.30-5.90) m/uL Hgb (13.0-17.5) gm/dL Hct (39.0-53.0) % Neutrophils # (Manual) (1.3-7.7) k/uL PT (9.0-12.0) sec INR (<1.2) APTT 43.4 H (22.0-30.0) sec Potassium (3.5-5.1) mmol/L Chloride (98-107) mmol/L Carbon Dioxide (22-30) mmol/L BUN (9-20) mg/dL Creatinine (0.66-1.25) mg/dL POC Glucose (mg/dL) (75-99) mg/dL Troponin I (0.000-0.034) ng/mL TSH (0.465-4.680) mIU/L Urine Protein (Negative) Ur Leukocyte Esterase (Negative) Urine WBC (0-5) /hpf Hyaline Casts (0-2) /lpf Urine Mucus (None) /hpf Thrombosis Risk Factor Assmnt - Choose All That Apply Any of the Below Risk Factors Present?: Yes Each Factor Represents 1 point: Medical pt on bed rest Other Risk Factors: Yes Each Risk Factor Represents 3 Points: Age 75 years or older Other congenital or acquired thrombophilia - If yes, enter type in comment: No Thrombosis Risk Factor Assessment Total Risk Factor Score: 4 Thrombosis Risk Factor Assessment Level: Moderate Risk Assessment and Plan Plan: 1. New onset atrial flutter. On amiodarone 400 mg 3 times a day, heparin drip, metoprolol 25 mg twice a day. Will obtain echocardiogram, consult with cardiology. 2. Left-sided pneumonia. Azithromycin along with ceftriaxone, Solu-Medrol 60 mg IV every 6 and updraft treatments. Blood cultures obtained. Negative for Coivd x2. Will obtain swallow eval. 3. Elevated troponin. Consult with cardiology 4. Leukocytosis. Consult hematology 5. Acute kidney injury. IV hydration, will repeat kidney function tomorrow 6. Myasthenia gravis with ocular involvement. Has been off steroids for about a year, on Mestinon 180mg BID and 60mg TID 7. Diabetes mellitus type 2. Prandin 2 mg daily 8. Hypertension. Metoprolol 25 mg twice a day and Norvasc 5 mg daily as needed for blood pressure over 140 systolic 9. Hyperlipidemia. Continue Lipitor 10 mg daily. 10. History of Graves' disease status post radiation treatment 2 years ago with hypothyroidism. Repeat TSH and free T4 ordered, continue levothyroxine 125 g daily 11. GI prophylaxis. Metoprolol 40 mg daily 12. DVT prophylaxis. Heparin infusion The above impression and plan of care have been discussed and directed by signing physician. Pattie Mcqueen nurse practitioner acting as scribe for signing physician.
--- NOTE | 2020-09-26 11:00 | ECHOF ---
Referral Reason:Atrial flutter MEASUREMENTS -------- HEIGHT: 172.7 cm WEIGHT: 69.4 kg BP: 114/78 IVSd: 0.9 cm (0.6 - 1.1) LVIDd: 5.9 cm (3.9 - 5.3) LVPWd: 1.3 cm (0.6 - 1.1) IVSs: 1.9 cm LVIDs: 4.8 cm LVPWs: 1.5 cm LAESV Index (A-L): 52.27 ml/m Ao Diam: 3.7 cm (2.0 - 3.7) AV Cusp: 2.2 cm (1.5 - 2.6) LA Diam: 2.3 cm (2.7 - 3.8) MV EXCURSION: 23.254 mm (> 18.000) MV EF SLOPE: 190 mm/s (70 - 150) EPSS: 1.5 cm AR PHT: 857 ms RAP: 15.00 mmHg RVSP: 39.84 mmHg FINDINGS -------- The rhythm appears to be atrial flutter. This was a technically good study. The left ventricular size is normal. There is borderline concentric left ventricular hypertrophy. There is severe global hypokinesis of LV . Overall left ventricular systolic function is severely impaired with, an EF between 20 - 25 %. The right ventricle is normal in size. LA is severely dilated >40 ml/m2 The right atrial size is normal. Interatrial and interventricular septum intact. Aortic valve is trileaflet and is mildly thickened. There is mild aortic regurgitation. The mitral valve is normal. The mitral valve leaflets are mildly thickened. Severe mitral regurgi tation is present. The tricuspid valve appears structurally normal. Mild tricuspid regurgitation present. There is m ild pulmonary hypertension. The right ventricular systolic pressure, as measured by Doppler, is 39. 84mmHg. Trace/mild (physiologic) pulmonic regurgitation. The aortic root size is normal. The inferior vena cava is mildly dilated. There is no pericardial effusion. CONCLUSIONS -------- 1. The left ventricular size is normal. 2. There is borderline concentric left ventricular hypertrophy. 3. There is severe global hypokinesis of LV . 4. Overall left ventricular systolic function is severely impaired with, an EF between 20 - 25 %. 5. LA is severely dilated >40 ml/m2 6. Aortic valve is trileaflet and is mildly thickened. 7. There is mild aortic regurgitation. 8. The mitral valve leaflets are mildly thickened. 9. Severe mitral regurgitation is present. 10. Mild tricuspid regurgitation present. 11. There is mild pulmonary hypertension. 12. The right ventricular systolic pressure, as measured by Doppler, is 39.84mmHg. 13. Trace/mild (physiologic) pulmonic regurgitation. 14. The inferior vena cava is mildly dilated. 15. There is no pericardial effusion. SANITIZER: Sarah Alvarado RDCS
[2020-09-26 11:35] LABS: Glucose,Whole Blood 256 mg/dL (75-99)
[2020-09-26] MEDS ORDERED: METOPROLOL TARTRATE 12.5 MG TAB PO STA (11:35)
[2020-09-26] MEDS: INSULIN ASPART (NovoLOG) 100 UNIT/ML VIAL SQ SCH ×3 (11:54→20:39)
[2020-09-26] MEDS: SYMBICORT 160-4.5 MCG INHALER INHALATION SCH ×2 (12:03→22:00)
--- NOTE | 2020-09-26 12:41 | P.CRDCN ---
History of Present Illness Consult date: 09/26/20 History of present illness: CHIEF COMPLAINT: a flutter with RVR HISTORY OF PRESENT ILLNESS: This is a 89-year-old male with a past medical history significant for hypertension, hyperlipidemia, ischemic cardiomyopathy with previous ejection fraction 40-45%, and Graves' disease. Patient follows in the office with Dr. Monge. We have been asked to see the patient in consultation for new-onset A. fib flutter with RVR. Patient examined this morning at the bedside. Patient states he had a home health nurse at his house yesterday. He appeared short of breath and was found to be tachycardic. He was brought to the hospital for further evaluation. Patient was found to be in aflutter with RVR on admission. He does not have a history of aflutter. The patient was started on a Cardizem drip in the emergency room. However the patient became hypotensive and this was discontinued. He was subsequently started on IV amiodarone per the emergency room physician. He was also started on IV heparin. The patient denies any chest pain or pressure. He denies shortness of breath, although he does appear to have mildly labored breathing during examination. He denies dizziness or lightheadedness. Denies palpitations. Patient underwent nuclear stress test in 2013 revealing a moderate to large prior inferior wall myocardial infarction. No evidence for reversible ischemia. 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 Circumflex was nondomin ant with no significant disease. RCA is dominant with mild irregularities. DIAGNOSTICS: EKG reveals a flutter with RVR Chest xray left lower lobe pneumonia increased compared to exam. Underlying pulmonary fibrosis. No definite heart failure. Laboratory data: WBC 36.3. Hemoglobin 9.7. Platelet count 211. sodium 142. Potassium 5.6. BUN 62. Creatinine 2.02. BNP 8320. troponin 0.052. 0.055. Current home cardiac medications include metoprolol 12.5 mg daily,Lipitor 10 mg daily, Norvasc 5 mg daily REVIEW OF SYSTEMS: At the time of my exam: CONSTITUTIONAL: Denies fever or chills. HEENT: Denies blurred vision, vision changes, or eye pain. Denies hemoptysis CARDIOVASCULAR: Denies chest pain, orthopnea, PND or palpitations RESPIRATORY: No shortness of breath. GASTROINTESTINAL: Denies abdominal pain. Denies nausea or vomiting. HEMATOLOGIC: Denies bleeding disorders. GENITOURINARY: Denies any blood in urine. SKIN: Denies pruitis. Denies rash. PHYSICAL EXAM: VITAL SIGNS: Reviewed. GENERAL: Well-developed in no acute distress. HEENT: Head is normocephalic. Pupils are equal, round. Sclerae anicteric. Mucous membranes of the mouth are moist. Neck supple. No JVD or thyromegaly LUNGS: Respirations even and unlabored. Lungs diminished. HEART: Irregular rate and rhythm. S1 and S2 heard. Systolic murmur noted. ABDOMEN: Soft. Nondistended. Nontender. EXTREMITIES: Normal range of motion. No clubbing or cyanosis. Peripheral pulses intact. No lower extremity edema NEUROLOGIC: Awake and alert. Oriented x 3. ASSESSMENT: Left sided pneumonia Leukocytosis New onset atypical aflutter with RVR Acute on chronic kidney disease Hypertension Hyperlipidemia Ischemic cardiomyopathy with previous ejection fraction 40-45% Abnormal troponins, may secondary to CKD, troponins are flat and not suggestive of ACS PLAN: Obtain 2-D echo to assess cardiac structure and function Continue IV heparin. Will send prescription for Eliquis to the pharmacy and have case management check for prescription coverage Discontinue IV amiodarone. Begin oral amiodarone 400 mg 3 times a day per Dr. Hdz Home dose of metoprolol increased to 25 mg twice a day Further recommendations pending patient's course Nurse practitioner note has been reviewed by physician. Signing provider agrees with the documented findings, assessment, and plan of care. Past Medical History Past Medical History: Cancer, Heart Failure, Diabetes Mellitus, Eye Disorder, Hyperlipidemia, Hypertension, Myocardial Infarction (MD), Pneumonia, Thyroid Dis order Additional Past Medical History / Comment(s): hemorhoids. Hx Graves d isease/radioactive iodine tx, silent MD, Basal skin CA, Back pain, myasthenia gravis Last Myocardial Infarction Date:: unknown History of Any Multi-Drug Resistant Organisms: None Reported Past Surgical History: Adenoidectomy, Appendectomy, Heart Catheterization, Joint Replacement, Orthopedic Surgery, Tonsillectomy Additional Past Surgical History / Comment(s): Ameya catarract surg, basal cell removals, 3 lt and 1 rt knee replacements. Lt knee surg for strept infection. Past Anesthesia/Blood Transfusion Reactions: Postoperative Nausea & Vomiting (PONV) Past Psychological History: No Psychological Hx Reported Smoking Status: Former smoker Past Alcohol Use History: None Reported Additional Past Alcohol Use History / Comment(s): Smoked 1ppd x 33 yrs, quit for 40 yrs. no illicit drug use. Patient seldom drinks alcohol and if he does this one glass of wine. He lives at home with his . Past Drug Use History: None Reported - Past Family History Father Family Medical History: Cancer Additional Family Medical History / Comment(s): Colon CA. Daughter(s) Family Medical History: Cancer Additional Family Medical History / Comment(s): Thyroid CA. Brother(s) Additional Family Medical History / Comment(s): Patient does not have any brothers or sisters. Medications and Allergies Home Medications Medication Instructions Recorded Confirmed Type Atorvastatin [Lipitor] 10 mg PO QAM 11/09/16 09/25/20 History Gabapentin [Neurontin] 200 mg PO HS 11/09/16 09/25/20 History Fluticasone/Salmeterol [Advair 1 puff INHALATION RT-BID PRN 01/16/18 09/25/20 History 500-50 Diskus] Pyridostigmine [Mestinon] 60 mg PO TID PRN 01/16/18 09/25/20 History Sodium Bicarbonate Tab 650 mg PO DAILY PRN 01/16/18 09/25/20 History Albuterol Sulfate [Proair Hfa] 1 - 2 puff INHALATION RT-Q8H PRN 09/25/20 09/25/20 History Bismuth Subsalicylate 524 mg PO Q1H PRN MDD 240MLS 09/25/20 09/25/20 History [Pepto-Bismol] HYDROcodone/APAP 10-325MG [[place] 0.5 tab PO Q4HR PRN 09/25/20 09/25/20 History 10-325] Levothyroxine Sodium [Synthroid] 125 mcg PO DAILY 09/25/20 09/25/20 History Metoprolol Tartrate [Lopressor] 12.5 mg PO DAILY 09/25/20 09/25/20 History Omeprazole 20 mg PO DAILY 09/25/20 09/25/20 History Pyridostigmine [place] 180 mg PO BID 09/25/20 09/25/20 History [Pyridostigmine [place] ER] Repaglinide [Prandin] 2 mg PO DAILY 09/25/20 09/25/20 History Simethicone [Gas-X] 125 mg PO Q4H PRN 09/25/20 09/25/20 History amLODIPine [Norvasc] 5 mg PO DAILY PRN 09/25/20 09/25/20 History Apixaban [Eliquis] 2.5 mg PO BID #60 tab 09/26/20 Rx Allergies Allergy/AdvReac Type Severity Reaction Status Date / Time No Known Allergies Allergy Verified 09/25/20 15:08 Physical Exam Vitals: Vital Signs Temp Pulse Pulse Resp BP BP BP 09/26/20 11:31 97.6 F 132 H 18 123/87 09/26/20 08:00 136 H 18 09/26/20 07:55 97.6 F 136 H 18 103/71 09/26/20 06:03 128 H 09/26/20 05:31 128 H 09/26/20 03:04 97.5 F L 118 H 20 114/78 09/26/20 00:03 110 H 20 09/25/20 23:54 111 H 20 09/25/20 23:52 109 H 20 120/71 09/25/20 21:00 82 09/25/20 20:39 82 09/25/20 20:00 97.6 F 136 H 22 133/71 09/25/20 18:35 97.0 F L 90 18 112/68 09/25/20 17:34 101 H 20 105/59 09/25/20 17:15 129 H 20 95/77 09/25/20 16:30 120 H 20 96/78 09/25/20 16:15 109 H 20 98/79 09/25/20 16:00 118 H 20 96/77 09/25/20 15:45 109 H 20 94/65 09/25/20 15:10 133 H 20 98/67 09/25/20 15:00 121 H 20 94/69 09/25/20 14:50 111 H 22 98/72 09/25/20 14:24 97.8 F 149 H 22 121/91 Pulse Ox 09/26/20 11:31 94 L 09/26/20 08:00 09/26/20 07:55 94 L 09/26/20 06:03 09/26/20 05:31 09/26/20 03:04 97 09/26/20 00:03 09/25/20 23:54 09/25/20 23:52 97 09/25/20 21:00 09/25/20 20:39 98 09/25/20 20:00 97 09/25/20 18:35 100 09/25/20 17:34 100 09/25/20 17:15 97 09/25/20 16:30 98 09/25/20 16:15 98 09/25/20 16:00 98 09/25/20 15:45 98 09/25/20 15:10 98 09/25/20 15:00 98 09/25/20 14:50 98 09/25/20 14:24 Intake and Output 09/25/20 09/26/20 09/26/20 22:59 06:59 14:59 Intake Total 60.203 Output Total 100 Balance -39.797 Intake: Intake, IV Titration 60.203 Amount Heparin Sod,Pork in 0.45% 60.203 NaCl 25,000 unit In 0.45 % NaCl 1 250ml.bag @ 12 UNITS/KG/HR 8.045 mls/hr IV .Q24H [facility] Rx#: [id number] Output: Urine 100 Other: Voiding Method Urinal Urinal # Voids 140 Weight 67.041 kg 69.5 kg Results 09/26/20 09:09 09/25/20 14:37 Cardiac Enzymes 09/25/20 09/25/20 09/25/20 Range/Units 14:37 14:37 17:33 AST 40 (17-59) U/L Troponin I 0.052 H* 0.055 H* (0.000-0.034) ng/mL Coagulation 09/25/20 09/25/20 09/26/20 Range/Units 14:37 22:18 09:09 PT 12.2 H (9.0-12.0) sec APTT 30.2 H 66.1 H 43.4 H (22.0-30.0) sec CBC 09/25/20 09/26/20 Range/Units 14:37 09:09 WBC 35.7 H 36.3 H (3.8-10.6) k/uL RBC 3.39 L 3.32 L (4.30-5.90) m/uL Hgb 9.5 L 9.7 L (13.0-17.5) gm/dL Hct 30.0 L 31.1 L (39.0-53.0) % Plt Count 222 211 (150-450) k/uL Comprehensive Metabolic Panel 09/25/20 Range/Units 14:37 Sodium 142 (137-145) mmol/L Potassium 5.6 H (3.5-5.1) mmol/L Chloride 118 H (98-107) mmol/L Carbon Dioxide 18 L (22-30) mmol/L BUN 62 H (9-20) mg/dL Creatinine 2.02 H (0.66-1.25) mg/dL Glucose 86 (74-99) mg/dL Calcium 9.7 (8.4-10.2) mg/dL AST 40 (17-59) U/L ALT 44 (4-49) U/L Alkaline Phosphatase 74 (38-126) U/L Total Protein 7.3 (6.3-8.2) g/dL Albumin 3.6 (3.5-5.0) g/dL Current Medications Generic Name Dose Route Start Last Admin Trade Name Freq PRN Reason Stop Dose Admin Hydrocodone Bitart/Acetaminophen 0.5 each 09/25/20 18:30 09/26/20 11:42 Hydrocodone/Apap 10-325mg 1 Each Tab PO 0.5 each Q4HR PRN Administration Pain Albuterol Sulfate 2.5 mg 09/26/20 05:35 Albuterol Nebulized 2.5 Mg/3 Ml INHALATION RT-Q4H PRN Shortness Of Breath Amiodarone HCl 400 mg 09/26/20 09:45 09/26/20 09:51 Amiodarone 200 Mg Tab PO 400 mg TID CODEY Administration Amlodipine Besylate 5 mg 09/25/20 18:30 Amlodipine 5 Mg Tab PO DAILY PRN BP >140 Atorvastatin Calcium 10 mg 09/26/20 09:00 09/26/20 08:02 Atorvastatin 10 Mg Tab PO 10 mg QAM [facility] Administration Bismuth Subsalicylate 524 mg 09/25/20 18:30 Bismuth Subsalicylate 4,192 Mg/240 Ml Bottle PO Q1H PRN GI Upset Budesonide/Formoterol Fumarate 2 puff 09/26/20 08:00 09/26/20 12:03 Symbicort 160-4.5 Mcg Inhaler INHALATION Not Given RT-BID CODEY Gabapentin 200 mg 09/25/20 21:00 09/25/20 19:52 Gabapentin 100 Mg Cap PO 200 mg HS CODEY Administration Heparin Sodium (Porcine) 0 unit 09/25/20 15:50 Heparin Sodium,Porcine 5,000 Unit/Ml 1 Ml Vial IV PER PROTOCOL PRN Low PTT Protocol Sodium Chloride 1,000 mls @ 75 mls/hr 09/25/20 14:45 09/26/20 04:28 Saline 0.9% IV 75 mls/hr .[id number] CODEY Administration Heparin Sodium/Sodium Chloride 250 mls @ 8.045 mls/hr 09/25/20 16:00 09/25/20 23:46 25,000 unit/ Sodium Chloride IV 10 units/kg/hr .Q24H [facility] 6.704 mls/hr Titration Protocol 12 UNITS/KG/HR Insulin Aspart 0 unit 09/26/20 12:30 09/26/20 11:54 Insulin Aspart (Novolog) 100 Unit/Ml Vial SQ 8 unit ACHS CODEY Administration Protocol Levothyroxine Sodium 125 mcg 09/26/20 06:30 09/26/20 06:15 Levothyroxine 125 Mcg Tab PO 125 mcg DAILY@0630 CODEY Administration Methylprednisolone Sodium Succinate 60 mg 09/26/20 06:00 09/26/20 11:55 Methylprednisolone Sod Succi 125 Mg/2 Ml Vial IV 60 mg Q6HR [facility] Administration Metoprolol Tartrate 25 mg 09/26/20 21:00 Metoprolol Tartrate 25 Mg Tab PO BID CODEY Naloxone HCl 0.2 mg 09/25/20 16:59 Naloxone 0.4 Mg/Ml 1 Ml Vial IV Q2M PRN Opioid Reversal Pantoprazole Sodium 40 mg 09/26/20 07:30 09/26/20 06:15 Pantoprazole 40 Mg Tablet PO 40 mg [id number] CODEY Administration Pyridostigmine [place] 60 mg 09/25/20 18:30 Pyridostigmine 60 Mg Tab PO TID PRN urinary retention Pyridostigmine [place] 180 mg 09/25/20 18:30 09/26/20 06:14 Pyridostigmine 60 Mg Tab PO 180 mg BID@0630,1830 CODEY Administration Repaglinide 2 mg 09/26/20 09:00 09/26/20 09:51 Repaglinide 1 Mg Tab PO 2 mg DAILY CODEY Administration Simethicone 120 mg 09/25/20 18:30 Simethicone 80 Mg Chewable PO Q4H PRN GAS Sodium Bicarbonate 650 mg 09/25/20 18:30 Sodium Bicarbonate Tab 650 Mg Tab PO DAILY PRN GI Upset Intake and Output 09/25/20 09/26/20 09/26/20 22:59 06:59 14:59 Intake Total 60.203 Output Total 100 Balance -39.797 Intake: Intake, IV Titration 60.203 Amount Heparin Sod,Pork in 0.45% 60.203 NaCl 25,000 unit In 0.45 % NaCl 1 250ml.bag @ 12 UNITS/KG/HR 8.045 mls/hr IV .Q24H [facility] Rx#: [id number] Output: Urine 100 Other: Voiding Method Urinal Urinal # Voids 140 Weight 67.041 kg 69.5 kg 09/26/20 09:09 09/25/20 14:37
--- NOTE | 2020-09-26 14:27 | P.CNPUL ---
History of Present Illness Consult date: 09/26/20 Reason for consult: dyspnea, other Chief complaint: Weakness, generalized aches, dyspnea History of present illness: 89-year-old white male patient with past medical history positive for hypertension, hyperlipidemia, diabetes mellitus type 2, history of myasthenia gravis for which the patient used to follow with the neurologist out of [facility], history of pneumonia, myocardial infarction, history of Graves' disease status post radioactive iodine treatment, who came in to the hospital with complaints of 3 week history of increased weakness, and generalized body aches. Denied any chest pain, denied any hemoptysis, denied any shortness of breath although patient appears to be having conversational dyspnea. Not usually oxygen dependent, denies any chronic lung condition. He is an ex- smoker, quit 40 years ago, but does carry over 20 year pack smoking history. He states he has intermittent episodes of epigastric discomfort when he eats that is relieved with belching. he was found to be in atrial flutter with RVR with a left bundle branch block with a rate of 110 to 130, he was started on Cardizem drip. Chest x-ray showed findings concerning for left-sided pneumonia, and the lab work showed significant leukocytosis with a white blood cell count of 35.7, evidence of 12% bands. His COVID PCR was negative, his lactic acid was 1.9, patient had evidence of acute kidney injury with the BUN of 62 and creatinine of 2.0. Had troponin elevation of 0.052, and proBNP level was 8320. Urinalysis was negative for any sign of infection. Started on azithromycin and Rocephin for antibiotic coverage, and were consulted for pulmonary management. Review of Systems All systems: negative Constitutional: Reports weakness, Denies chills, Denies fever Eyes: denies blurred vision, denies pain Ears, nose, mouth and throat: Denies headache, Denies sore throat Cardiovascular: Reports chest pain, Denies shortness of breath Respiratory: Reports dyspnea, Denies cough Gastrointestinal: Denies abdominal pain, Denies diarrhea, Denies nausea, Denies vomiting Musculoskeletal: Denies myalgias Integumentary: Denies pruritus, Denies rash Neurological: Denies numbness, Denies weakness Psychiatric: Denies anxiety, Denies depression Endocrine: Denies fatigue, Denies weight change Past Medical History Past Medical History: Cancer, Heart Failure, Diabetes Mellitus, Eye Disorder, Hyperlipidemia, Hypertension, Myocardial Infarction ([place]), Pneumonia, Thyroid Disorder Additional Past Medical History / Comment(s): hemorhoids. Hx Graves disease/radioactive iodine tx, silent [place], Basal skin [place], Back pain, myasthenia gravis Last Myocardial Infarction Date:: unknown History of Any Multi-Drug Resistant Organisms: None Reported Past Surgical History: Adenoidectomy, Appendectomy, Heart Catheterization, Joint Replacement, Orthopedic Surgery, Tonsillectomy Additional Past Surgical History / Comment(s): Ameya catarract surg, basal cell r emovals, 3 lt and 1 rt knee replacements. Lt knee surg for strept infection. Past Anesthesia/Blood Transfusion Reactions: Postoperative Nausea & Vomiting (PONV) Past Psychological History: No Psychological Hx Reported Smoking Status: Former smoker Past Alcohol Use History: None Reported Additional Past Alcohol Use History / Comment(s): Smoked 1ppd x 33 yrs, quit for 40 yrs. no illicit drug use. Patient seldom drinks alcohol and if he does this one glass of wine. He lives at home with his . Past Drug Use History: None Reported - Past Family History Father Family Medical History: Cancer Additional Family Medical History / Comment(s): Colon [place]. Daughter(s) Family Medical History: Cancer Additional Family Medical History / Comment(s): Thyroid [place]. Brother(s) Additional Family Medical History / Comment(s): Patient does not have any brothers or sisters. Medications and Allergies Home Medications Medication Instructions Recorded Confirmed Type Atorvastatin [Lipitor] 10 mg PO QAM 11/09/16 09/25/20 History Gabapentin [Neurontin] 200 mg PO HS 11/09/16 09/25/20 History Fluticasone/Salmeterol [Advair 1 puff INHALATION RT-BID PRN 01/16/18 09/25/20 History 500-50 Diskus] Pyridostigmine [Mestinon] 60 mg PO TID PRN 01/16/18 09/25/20 History Sodium Bicarbonate Tab 650 mg PO DAILY PRN 01/16/18 09/25/20 History Albuterol Sulfate [Proair Hfa] 1 - 2 puff INHALATION RT-Q8H PRN 09/25/20 09/25/20 History Bismuth Subsalicylate 524 mg PO Q1H PRN MDD 240MLS 09/25/20 09/25/20 History [Pepto-Bismol] HYDROcodone/APAP 10-325MG [[place] 0.5 tab PO Q4HR PRN 09/25/20 09/25/20 History 10-325] Levothyroxine Sodium [Synthroid] 125 mcg PO DAILY 09/25/20 09/25/20 History Metoprolol Tartrate [Lopressor] 12.5 mg PO DAILY 09/25/20 09/25/20 History Omeprazole 20 mg PO DAILY 09/25/20 09/25/20 History Pyridostigmine [place] 180 mg PO BID 09/25/20 09/25/20 History [Pyridostigmine [place] ER] Repaglinide [Prandin] 2 mg PO DAILY 09/25/20 09/25/20 History Simethicone [Gas-X] 125 mg PO Q4H PRN 09/25/20 09/25/20 History amLODIPine [Norvasc] 5 mg PO DAILY PRN 09/25/20 09/25/20 History Apixaban [Eliquis] 2.5 mg PO BID #60 tab 09/26/20 Rx Allergies Allergy/AdvReac Type Severity Reaction Status Date / Time No Known Allergies Allergy Verified 09/25/20 15:08 Physical Exam Vitals: Vital Signs Temp Pulse Pulse Resp BP BP BP 09/26/20 11:31 97.6 F 132 H 18 123/87 09/26/20 08:00 136 H 18 09/26/20 07:55 97.6 F 136 H 18 103/71 09/26/20 06:03 128 H 09/26/20 05:31 128 H 09/26/20 03:04 97.5 F L 118 H 20 114/78 09/26/20 00:03 110 H 20 09/25/20 23:54 111 H 20 09/25/20 23:52 109 H 20 120/71 09/25/20 21:00 82 09/25/20 20:39 82 09/25/20 20:00 97.6 F 136 H 22 133/71 09/25/20 18:35 97.0 F L 90 18 112/68 09/25/20 17:34 101 H 20 105/59 09/25/20 17:15 129 H 20 95/77 09/25/20 16:30 120 H 20 96/78 09/25/20 16:15 109 H 20 98/79 09/25/20 16:00 118 H 20 96/77 09/25/20 15:45 109 H 20 94/65 09/25/20 15:10 133 H 20 98/67 09/25/20 15:00 121 H 20 94/69 09/25/20 14:50 111 H 22 98/72 09/25/20 14:24 97.8 F 149 H 22 121/91 Pulse Ox 09/26/20 11:31 94 L 09/26/20 08:00 09/26/20 07:55 94 L 09/26/20 06:03 09/26/20 05:31 09/26/20 03:04 97 09/26/20 00:03 09/25/20 23:54 09/25/20 23:52 97 09/25/20 21:00 09/25/20 20:39 98 09/25/20 20:00 97 09/25/20 18:35 100 09/25/20 17:34 100 09/25/20 17:15 97 09/25/20 16:30 98 09/25/20 16:15 98 09/25/20 16:00 98 09/25/20 15:45 98 09/25/20 15:10 98 09/25/20 15:00 98 09/25/20 14:50 98 09/25/20 14:24 Intake and Output 09/25/20 09/26/20 09/26/20 22:59 06:59 14:59 Intake Total 60.203 120 Output Total 100 300 Balance -39.797 -180 Intake: Intake, IV Titration 60.203 Amount Heparin Sod,Pork in 0.45% 60.203 NaCl 25,000 unit In 0.45 % NaCl 1 250ml.bag @ 12 UNITS/KG/HR 8.045 mls/hr IV .Q24H [facility] Rx#: [id number] Oral 120 Output: Urine 100 300 Other: Voiding Method Urinal Urinal # Voids 140 Weight 67.041 kg 69.5 kg GENERAL EXAM: Alert, very pleasant, 82-year-old white female, 4 L of oxygen with pulse ox of 94%, he has conversational dyspnea, but no acute distress HEAD: Normocephalic/atraumatic. EYES: Normal reaction of pupils, equal size. Conjunctiva pink, sclera white. NOSE: Clear with pink turbinates. THROAT: No erythema or exudates. NECK: No masses, no JVD, no thyroid enlargement, no adenopathy. CHEST: No chest wall deformity. Symmetrical expansion. LUNGS: Equal air entry with fine inspiratory crackles at bilateral bases, but no wheeze, rhonchi or dullness. CVS: Regular rate and rhythm, normal S1 and S2, no gallops, no murmurs, no rubs ABDOMEN: Soft, nontender. No hepatosplenomegaly, normal bowel sounds, no guarding or rigidity. EXTREMITIES: No clubbing, no edema, no cyanosis, 2+ pulses and upper and lower extremities. MUSCULOSKELETAL: Muscle strength and tone normal. SPINE: No scoliosis or deformity SKIN: No rashes CENTRAL NERVOUS SYSTEM: Alert and oriented -3. No focal deficits, tone is normal in all 4 extremities. PSYCHIATRIC: Alert and oriented -3. Appropriate affect. Intact judgment and insight. Results - Laboratory Findings CBC and BMP: 09/26/20 09:09 09/25/20 14:37 PT/INR, D-dimer PT 12.2 sec (9.0-12.0) H 09/25/20 14:37 INR 1.2 (<1.2) H 09/25/20 14:37 Abnormal lab findings: Abnormal Labs 09/25/20 09/25/20 09/25/20 14:37 14:37 14:37 WBC 35.7 H RBC 3.39 L Hgb 9.5 L Hct 30.0 L Neutrophils # Neutrophils # (Manual) 31.00 H Lymphocytes # Monocytes # Basophils # PT 12.2 H INR 1.2 H APTT 30.2 H Potassium 5.6 H Chloride 118 H Carbon Dioxide 18 L BUN 62 H Creatinine 2.02 H POC Glucose (mg/dL) Troponin I TSH 0.140 L Urine Protein Ur Leukocyte Esterase Urine WBC Hyaline Casts Urine Mucus 09/25/20 09/25/20 09/25/20 14:37 17:26 17:33 WBC RBC Hgb Hct Neutrophils # Neutrophils # (Manual) Lymphocytes # Monocytes # Basophils # PT INR APTT Potassium Chloride Carbon Dioxide BUN Creatinine POC Glucose (mg/dL) Troponin I 0.052 H* 0.055 H* TSH Urine Protein 2+ H Ur Leukocyte Esterase Moderate H Urine WBC 8 H Hyaline Casts 3 H Urine Mucus Rare H 09/25/20 09/25/20 09/26/20 20:32 22:18 06:19 WBC RBC Hgb Hct Neutrophils # Neutrophils # (Manual) Lymphocytes # Monocytes # Basophils # PT INR APTT 66.1 H Potassium Chloride Carbon Dioxide BUN Creatinine POC Glucose (mg/dL) 134 H 170 H Troponin I TSH Urine Protein Ur Leukocyte Esterase Urine WBC Hyaline Casts Urine Mucus 09/26/20 09/26/20 09/26/20 09:09 09:09 11:24 WBC 36.3 H RBC 3.32 L Hgb 9.7 L Hct 31.1 L Neutrophils # 32.1 H Neutrophils # (Manual) Lymphocytes # 0.2 L Monocytes # 2.7 H Basophils # 0.4 H PT INR APTT 43.4 H Potassium Chloride Carbon Dioxide BUN Creatinine POC Glucose (mg/dL) 256 H Troponin I TSH Urine Protein Ur Leukocyte Esterase Urine WBC Hyaline Casts Urine Mucus - Diagnostic Findings Chest x-ray: report reviewed, image reviewed Additional studies: EKG Assessment and Plan Plan: Assessment: #1. Acute hypoxic respiratory failure related to pneumonia, community-acquired versus aspiration pneumonia. COVID 19 PCR was negative #2. Chest discomfort, elevated troponins, rule out possibility of non-ST elevated myocardial infarction #3. Atrial flutter with RVR, new onset, on amiodarone drip and heparin drip #4. Leukocytosis #5. Acute kidney injury #6. Non-anion gap metabolic acidosis related to DIOGENES #7. History of tobacco dependence, carries [id number] smoking history in remission for last 40 years #8. Hypertension #9. Hyperlipidemia #10. Diabetes mellitus type 2 #11. History of myasthenia gravis on Mestinon #12. Hypothyroidism, history of Graves' disease status post radioactive iodine treatment #13. Previous history of myocardial infarction #14. Previous history of pneumonia #15. Previous history of ischemic cardiomyopathy with an ejection fraction of 40-45% Plan: Continue with azithromycin and Rocephin for antibiotic coverage, we will send Procalcitonin level, continue with inhalers and nebulized treatments. We can stop the IV steroids. Chest x-ray in the morning. Continue to follow I performed a history & physical examination of the patient and discussed their management with my nurse practitioner, Mei Cruz. I reviewed the nurse practitioner's note and agree with the documented findings and plan of care. Lung sounds are positive for fine bibasilar rales. The findings and the impression was discussed with the patient. I attest to the documentation by the nurse practitioner. Time with Patient: Greater than 30
--- NOTE | 2020-09-26 14:43 | FL ---
Modified barium swallow. HISTORY: Dysphagia. Modified barium swallow was performed with the department of speech pathology. The patient was prese nted with various consistencies of barium. There is no evidence for aspiration or penetration. Full report is to follow from the department of speech pathology. Impression: Normal study.
--- NOTE | 2020-09-26 15:25 | P.CONS ---
History of Present Illness - Reason for Consult Consult date: 09/26/20 leukocytosis Requesting physician: Eron Good - Chief Complaint weakness, shortness of breath - History of Present Illness Mr. Espinoza is a very pleasant 89-year-old male with a PMH including CHF, HTN, increased lipids, myasthenia gravis, Graves' disease, chronic osteoarthritis, chronic pain medication use with narcotic-induced constipation. We've been asked to see him in regards to elevated WBC/ANC, decreased lymphocyte count of 0.2. Denies any history of elevated white blood cell count, he has had past history of skin cancers, no other cancers. He follows frequently with Gastroenterology due to persistent upper GI symptoms such as indigestion, epigastric discomfort. Has had EGD and colon he states he is up to date on prostate screening. He states that over the last 2-3 weeks he is progressively felt unwell, symptoms including weakness, SOB-requiring O2, vomiting 1, poor appetite, increased indigestion, bleching, epigastric fullness, abd bloating, no acute changes in bowel or bladder habits. Denies new/acute pain, swelling rashes. He can hardly walk a few feet on his own. He was fairly independent a few weeks ago Review of Systems 14 point review of systems is negative except as stated in HPI Past Medical History Past Medical History: Cancer, Heart Failure, Diabetes Mellitus, Eye Disorder, Hyperlipidemia, Hypertension, Myocardial Infarction ([place]), Pneumonia, Thyroid Disorder Additional Past Medical History / Comment(s): hemorhoids. Hx Graves disease/radioactive iodine tx, silent [place], Basal skin [place], Back pain, myasthenia gravis Last Myocardial Infarction Date:: unknown History of Any Multi-Drug Resistant Organisms: None Reported Past Surgical History: Adenoidectomy, Appendectomy, Heart Catheterization, Joint Replacement, Orthopedic Surgery, Tonsillectomy Additional Past Surgical History / Comment(s): Ameya catarract surg, basal cell removals, 3 lt and 1 rt knee replacements. Lt knee surg for strept infection. Past Anesthesia/Blood Transfusion Reactions: Postoperative Nausea & Vomiting (PONV) Past Psychological History: No Psychological Hx Reported Smoking Status: Former smoker Past Alcohol Use History: None Reported Additional Past Alcohol Use History / Comment(s): Smoked 1ppd x 33 yrs, quit for 40 yrs. no illicit drug use. Patient seldom drinks alcohol and if he does this one glass of wine. He lives at home with his . Past Drug Use History: None Reported - Past Family History Father Family Medical History: Cancer Additional Family Medical History / Comment(s): Colon CA. Daughter(s) Family Medical History: Cancer Additional Family Medical History / Comment(s): Thyroid CA. Brother(s) Additional Family Medical History / Comment(s): Patient does not have any brothers or sisters. Medications and Allergies Home Medications Medication Instructions Recorded Confirmed Type Atorvastatin [Lipitor] 10 mg PO QAM 11/09/16 09/25/20 History Gabapentin [Neurontin] 200 mg PO HS 11/09/16 09/25/20 History Fluticasone/Salmeterol [Advair 1 puff INHALATION RT-BID PRN 01/16/18 09/25/20 History 500-50 Diskus] Pyridostigmine [Mestinon] 60 mg PO TID PRN 01/16/18 09/25/20 History Sodium Bicarbonate Tab 650 mg PO DAILY PRN 01/16/18 09/25/20 History Albuterol Sulfate [Proair Hfa] 1 - 2 puff INHALATION RT-Q8H PRN 09/25/20 09/25/20 History Bismuth Subsalicylate 524 mg PO Q1H PRN MDD 240MLS 09/25/20 09/25/20 History [Pepto-Bismol] HYDROcodone/APAP 10-325MG [[place] 0.5 tab PO Q4HR PRN 09/25/20 09/25/20 History 10-325] Levothyroxine Sodium [Synthroid] 125 mcg PO DAILY 09/25/20 09/25/20 History Metoprolol Tartrate [Lopressor] 12.5 mg PO DAILY 09/25/20 09/25/20 History Omeprazole 20 mg PO DAILY 09/25/20 09/25/20 History Pyridostigmine [place] 180 mg PO BID 09/25/20 09/25/20 History [Pyridostigmine [place] ER] Repaglinide [Prandin] 2 mg PO DAILY 09/25/20 09/25/20 History Simethicone [Gas-X] 125 mg PO Q4H PRN 09/25/20 09/25/20 History amLODIPine [Norvasc] 5 mg PO DAILY PRN 09/25/20 09/25/20 History Apixaban [Eliquis] 2.5 mg PO BID #60 tab 09/26/20 Rx Allergies Allergy/AdvReac Type Severity Reaction Status Date / Time No Known Allergies Allergy Verified 09/25/20 15:08 Physical Exam Vitals: Vital Signs Temp Pulse Pulse Resp BP BP BP 09/26/20 11:31 97.6 F 132 H 18 123/87 09/26/20 08:00 136 H 18 09/26/20 07:55 97.6 F 136 H 18 103/71 09/26/20 06:03 128 H 09/26/20 05:31 128 H 09/26/20 03:04 97.5 F L 118 H 20 114/78 09/26/20 00:03 110 H 20 09/25/20 23:54 111 H 20 09/25/20 23:52 109 H 20 120/71 09/25/20 21:00 82 09/25/20 20:39 82 09/25/20 20:00 97.6 F 136 H 22 133/71 09/25/20 18:35 97.0 F L 90 18 112/68 09/25/20 17:34 101 H 20 105/59 09/25/20 17:15 129 H 20 95/77 09/25/20 16:30 120 H 20 96/78 09/25/20 16:15 109 H 20 98/79 09/25/20 16:00 118 H 20 96/77 09/25/20 15:45 109 H 20 94/65 Pulse Ox 09/26/20 11:31 94 L 09/26/20 08:00 09/26/20 07:55 94 L 09/26/20 06:03 09/26/20 05:31 09/26/20 03:04 97 09/26/20 00:03 09/25/20 23:54 09/25/20 23:52 97 09/25/20 21:00 09/25/20 20:39 98 09/25/20 20:00 97 09/25/20 18:35 100 09/25/20 17:34 100 09/25/20 17:15 97 09/25/20 16:30 98 09/25/20 16:15 98 09/25/20 16:00 98 12/20/20 15:45 98 Intake and Output 09/26/20 09/26/20 09/26/20 06:59 14:59 22:59 Intake Total 60.203 120 Output Total 100 300 Balance -39.797 -180 Intake: Intake, IV Titration 60.203 Amount Heparin Sod,Pork in 0.45% 60.203 NaCl 25,000 unit In 0.45 % NaCl 1 250ml.bag @ 12 UNITS/KG/HR 8.045 mls/hr IV .Q24H [facility] Rx#: [id number] Oral 120 Output: Urine 100 300 Other: Voiding Method Urinal # Voids 140 Weight 69.5 kg - Constitutional General appearance: average body habitus, cooperative, mild distress - EENT Eyes: anicteric sclerae, EOMI ENT: hearing grossly normal, normal oropharynx - Neck Neck: no lymphadenopathy - Respiratory on O2, respirations are mildly labored at rest Respiratory: right: rales - Cardiovascular Rhythm: irregularly irregular Heart sounds: normal: S1, S2 Abnormal Heart Sounds: no systolic murmur, no diastolic murmur, no rub, no S3 Gallop, no S4 Gallop, no click, no other leg Peripheral Edema: bilateral: None - Gastrointestinal General gastrointestinal: distended (mild), normal bowel sounds, soft, sple nomegaly ([place] in epigastric area on inspiration) - Neurologic Neurologic: CNII-XII intact - Musculoskeletal Musculoskeletal: generalized weakness Results CBC & Chem 7: 09/26/20 09:09 09/25/20 14:37 Labs: Abnormal Lab Results - Last 24 Hours (Table) 09/25/20 09/25/20 09/25/20 Range/Units 14:37 14:37 14:37 WBC 35.7 H (3.8-10.6) k/uL RBC 3.39 L (4.30-5.90) m/uL Hgb 9.5 L (13.0-17.5) gm/dL Hct 30.0 L (39.0-53.0) % Neutrophils # (1.3-7.7) k/uL Neutrophils # (Manual) 31.00 H (1.3-7.7) k/uL Lymphocytes # (1.0-4.8) k/uL Monocytes # (0-1.0) k/uL Basophils # (0-0.2) k/uL APTT (22.0-30.0) sec Potassium 5.6 H (3.5-5.1) mmol/L Chloride 118 H (98-107) mmol/L Carbon Dioxide 18 L (22-30) mmol/L BUN 62 H (9-20) mg/dL Creatinine 2.02 H (0.66-1.25) mg/dL POC Glucose (mg/dL) (75-99) mg/dL Troponin I 0.052 H* (0.000-0.034) ng/mL TSH 0.140 L (0.465-4.680) mIU/L Urine Protein (Negative) Ur Leukocyte Esterase (Negative) Urine WBC (0-5) /hpf Hyaline Casts (0-2) /lpf Urine Mucus (None) /hpf 09/25/20 09/25/20 09/25/20 Range/Units 17:26 17:33 20:32 WBC (3.8-10.6) k/uL RBC (4.30-5.90) m/uL Hgb (13.0-17.5) gm/dL Hct (39.0-53.0) % Neutrophils # (1.3-7.7) k/uL Neutrophils # (Manual) (1.3-7.7) k/uL Lymphocytes # (1.0-4.8) k/uL Monocytes # (0-1.0) k/uL Basophils # (0-0.2) k/uL APTT (22.0-30.0) sec Potassium (3.5-5.1) mmol/L Chloride (98-107) mmol/L Carbon Dioxide (22-30) mmol/L BUN (9-20) mg/dL Creatinine (0.66-1.25) mg/dL POC Glucose (mg/dL) 134 H (75-99) mg/dL Troponin I 0.055 H* (0.000-0.034) ng/mL TSH (0.465-4.680) mIU/L Urine Protein 2+ H (Negative) Ur Leukocyte Esterase Moderate H (Negative) Urine WBC 8 H (0-5) /hpf Hyaline Casts 3 H (0-2) /lpf Urine Mucus Rare H (None) /hpf 09/25/20 09/26/20 09/26/20 Range/Units 22:18 06:19 09:09 WBC 36.3 H (3.8-10.6) k/uL RBC 3.32 L (4.30-5.90) m/uL Hgb 9.7 L (13.0-17.5) gm/dL Hct 31.1 L (39.0-53.0) % Neutrophils # 32.1 H (1.3-7.7) k/uL Neutrophils # (Manual) (1.3-7.7) k/uL Lymphocytes # 0.2 L (1.0-4.8) k/uL Monocytes # 2.7 H (0-1.0) k/uL Basophils # 0.4 H (0-0.2) k/uL APTT 66.1 H (22.0-30.0) sec Potassium (3.5-5.1) mmol/L Chloride (98-107) mmol/L Carbon Dioxide (22-30) mmol/L BUN (9-20) mg/dL Creatinine (0.66-1.25) mg/dL POC Glucose (mg/dL) 170 H (75-99) mg/dL Troponin I (0.000-0.034) ng/mL TSH (0.465-4.680) mIU/L Urine Protein (Negative) Ur Leukocyte Esterase (Negative) Urine WBC (0-5) /hpf Hyaline Casts (0-2) /lpf Urine Mucus (None) /hpf 09/26/20 09/26/20 Range/Units 09:09 11:24 WBC (3.8-10.6) k/uL RBC (4.30-5.90) m/uL Hgb (13.0-17.5) gm/dL Hct (39.0-53.0) % Neutrophils # (1.3-7.7) k/uL Neutrophils # (Manual) (1.3-7.7) k/uL Lymphocytes # (1.0-4.8) k/uL Monocytes # (0-1.0) k/uL Basophils # (0-0.2) k/uL APTT 43.4 H (22.0-30.0) sec Potassium (3.5-5.1) mmol/L Chloride (98-107) mmol/L Carbon Dioxide (22-30) mmol/L BUN (9-20) mg/dL Creatinine (0.66-1.25) mg/dL POC Glucose (mg/dL) 256 H (75-99) mg/dL Troponin I (0.000-0.034) ng/mL TSH (0.465-4.680) mIU/L Urine Protein (Negative) Ur Leukocyte Esterase (Negative) Urine WBC (0-5) /hpf Hyaline Casts (0-2) /lpf Urine Mucus (None) /hpf Chest x-ray: report reviewed Assessment and Plan (1) Neutrophilic leukocytosis Narrative/Plan: New/sudden onset. Peripheral smear, documented as performed, no documentation of blasts. Additional lab workup ordered. Nothing acute from an Oncology standpoint. CBC daily. Monitor while patient's underlying conditions are treated. Current Visit: Yes Status: Acute Priority: High Code(s): D72.9 - DISORDER OF WHITE BLOOD CELLS, UNSPECIFIED SNOMED Code(s): 118203211 Plan: GI consult for patient's chronic history, he follows with Dr. Hdz. Pt has complaints of epigastric pain. US abd to evaluate spleen
[2020-09-26] MEDS: APIXABAN 2.5 MG TABLET PO SCH ×2 (15:31→20:39)
[2020-09-26 17:05] LABS: Glucose,Whole Blood 231 mg/dL (75-99)
[2020-09-26 17:27] LABS: Hemoglobin A1C 6.9 % (4.0-6.0)
--- NOTE | 2020-09-26 18:25 | CONS ---
CONSULTATION DATE OF DICTATION: 09/26/2020 REASON FOR CONSULTATION: Dysphagia for the last 3 weeks' duration. HISTORY OF PRESENT ILLNESS: The patient is an 89-year-old pleasant white male with history of diabetes mellitus, hypertension, hyperlipidemia and myasthenia gravis, admitted to the hospital because of generalized fatigue, weakness and decreased oral intake for the last 2 to 3 weeks' duration. He says that he has been having trouble with solids and occasionally with liquids. He did have a modified barium swallow done this morning that was reported as negative, with no evidence of aspiration and penetration. He denies any heartburn and reports no odynophagia. On review of his office records, he did have an upper endoscopy done by me in June of 2019 that showed distal esophageal stricture, for which he underwent bulb dilation. After that his symptoms had improved. He has been maintained on omeprazole on an outpatient basis for severe gastroesophageal reflux disease. The patient is currently on a pureed diet and he feels a little bit better. During this hospitalization he was also diagnosed with atrial fibrillation with RVR and is currently on IV heparin. Cardiology is following the patient closely. PAST MEDICAL HISTORY: His past medical history is significant for congestive heart failure, diabetes mellitus, hypertension, hyperlipidemia, history of coronary artery disease, status post MS in the past, hypothyroidism, basal cell carcinoma, history of Graves' disease, status post radioactive iodine treatment. PAST SURGICAL HISTORY: Adenoidectomy, appendectomy, tonsillectomy, cardiac catheterization, bilateral cataract surgery, upper endoscopy in June of 2019, as mentioned above. SOCIAL HISTORY: No smoking. No alcohol use. MEDICATIONS: Medications at home include Lipitor, Neurontin, Advair, Mestinon, albuterol, Pepto- Bismol, [place], Synthroid, Lopressor, omeprazole, pyridostigmine bromide, Prandin, Gas- X, Norvasc and Eliquis. ALLERGIES: NONE. FAMILY HISTORY: Father had colon cancer. Daughter has thyroid cancer. REVIEW OF SYSTEMS: CARDIOPULMONARY: He denies any chest pain or shortness of breath. GENITOURINARY: No dysuria or hematuria. MUSCULOSKELETAL: Fatigue, weakness. NEUROLOGY: History of myasthenia gravis. ENDOCRINE: Unremarkable. PSYCHIATRIC: Unremarkable. ENT/VISION: Unremarkable. CONSTITUTIONAL: Weight loss of about 7 to 8 pounds. No fever, chills or night sweats. GI: Dysphagia. PHYSICAL EXAMINATION: He appears comfortable. No apparent distress. Vital signs are stable. Blood pressure is 112/79, pulse rate 77, temperature 98. HEENT examination unremarkable. Conjunctivae pink. Sclerae anicteric. Oral cavity no lesions. NECK: No JVD or lymph node enlargement. CHEST: Clear to auscultation. HEART: Regular rate and rhythm. ABDOMEN: Soft. Bowel sounds are positive. No organomegaly. EXTREMITIES: No pedal edema. SKIN: No rashes. NEUROLOGIC: He is alert and oriented x3. No focal deficits. LABS: Labs done today show WBC 35.7, hemoglobin 9.5, platelets 222. Leukocyte esterase is moderate in the urinalysis. AST, ALT, T-bilirubin are within normal limits. Troponin slightly elevated at 0.055. Lipase is normal. IMPRESSION: 1. Progressive dysphagia to solids for the last 3 weeks' duration. The patient has prior history of distal esophageal stricture, for which he underwent EGD with dilation in June of 2019 and did well for several months. Most likely he may be having recurrent esophageal stricture. He did have a modified barium swallow that showed no evidence of aspiration or penetration, but there was pooling of the barium in the valleculae, and hence pureed diet was recommended by the speech pathologist; patient tolerating well. 2. Atrial fibrillation, on Eliquis. 3. Severe leukocytosis and possible urinary tract infection. Patient is at present on broad-spectrum antibiotics with ceftriaxone and clinically doing well. 4. Possible left-sided pneumonia, on broad-spectrum antibiotics. 5. Acute kidney injury. 6. History of myasthenia gravis. RECOMMENDATIONS: 1. Continue with broad-spectrum antibiotics. 2. Continue with current medications for atrial fibrillation with IV heparin and amiodarone. 3. Once his overall medical condition improves, we will consider proceeding with an upper endoscopy with dilation to evaluate progressive dysphagia to solids. 4. Continue with pureed diet for now. 5. Continue with Protonix 40 mg twice daily, and we will follow with you closely. Thank you for this consultation. MMODL / IJN: [id number] /
[2020-09-26 20:17] LABS: Glucose,Whole Blood 266 mg/dL (75-99)
[2020-09-26] MEDS: GABAPENTIN 100 MG CAP PO SCH (20:38)
[2020-09-26] MEDS: METOPROLOL TARTRATE 25 MG TAB PO SCH (20:39)
[2020-09-26 21:34] LABS: Glucose,Whole Blood 208 mg/dL (75-99)
[2020-09-26 21:59] LABS: Uric Acid 10.3 mg/dL (3.5-8.5)
[2020-09-27 00:24] LABS: % Iron Saturation 9.24 (15.00-50.00); Ferritin 325.6 ng/mL (22.0-322.0)
[2020-09-27 06:10] LABS: Glucose,Whole Blood 200 mg/dL (75-99)
[2020-09-27] MEDS: INSULIN ASPART (NovoLOG) 100 UNIT/ML VIAL SQ SCH ×4 (06:57→20:48)
[2020-09-27] MEDS: SYMBICORT 160-4.5 MCG INHALER INHALATION SCH ×2 (08:07→21:23)
--- NOTE | 2020-09-27 08:24 | US ---
EXAMINATION TYPE: US abdomen complete DATE OF EXAM: 09/27/2020 COMPARISON: CT 09/28/2013 CLINICAL HISTORY: difficulties swallowing. . comment on liver and spleen per requisition. EXAM MEASUREMENTS: Liver Length: 15.7 cm Gallbladder Wall: 0.3- 0.4 cm CBD: 0.6 cm Spleen: 6.9 cm Right Kidney: 9.1 x 4.6 x 5.1 cm Left Kidney: 10.9 x 4.2 x 4.8 cm Pancreas: Obscured by bowel gas Liver: wnl Gallbladder: distended at 9.5 cm, no stones seen. Evidence for sonographic Warren's sign: No CBD: wnl Spleen: wnl Right Kidney: No hydronephrosis or masses seen Left Kidney: No hydronephrosis or masses seen Upper IVC: wnl Abd Aorta: distal aorta ectasia measures 3.4 x 2.8 in transverse Patient with known hiatal hernia with partial intrathoracic stomach. The kidneys show normal cortical medullary differentiation, increased cortical echogenicity noted. Th ere is no ascites evident. IMPRESSION: Hydropic gallbladder with questionable wall thickening, correlate for possible cholecysti tis. Correlate for medical renal disease. Aortic ectasia. Some limitations to the exam, additional fi ndings above.
[2020-09-27] MEDS: HYDROcodone/APAP 10-325MG 1 EACH TAB PO PRN ×4 (08:28→20:40)
[2020-09-27] MEDS: METOPROLOL TARTRATE 25 MG TAB PO SCH ×2 (08:29→20:42)
[2020-09-27] MEDS: APIXABAN 2.5 MG TABLET PO SCH (08:29)
[2020-09-27] MEDS: PYRIDOSTIGMINE 60 MG TAB PO SCH ×2 (08:29→17:39)
[2020-09-27] MEDS: PANTOPRAZOLE 40 MG TABLET PO SCH (08:29)
[2020-09-27] MEDS: AMIODARONE 200 MG TAB PO SCH ×3 (08:29→22:51)
[2020-09-27] MEDS: REPAGLINIDE 1 MG TAB PO SCH (08:29)
[2020-09-27] MEDS: ATORVASTATIN 10 MG TAB PO SCH (08:29)
[2020-09-27] MEDS: LEVOTHYROXINE 125 MCG TAB PO SCH (08:29)
[2020-09-27] MEDS: SODIUM CHLORIDE 0.9% 1,000 ML IV SCH ×2 (08:34→22:11)
[2020-09-27 10:18] LABS: Basophils # (A) 0.2 k/uL (0-0.2); Basophils % (A) 1 %; Eosinophils # (A) 0.1 k/uL (0-0.7); Eosinophils % (A) 0 %; HCT 27.2 % (39.0-53.0); HGB 8.8 gm/dL (13.0-17.5); Hypochromasia Marked; Lymphocytes % (A) 2 %; MCHC 32.2 g/dL (31.0-37.0); MCV 93.2 fL (80.0-100.0); Mean Platelet Volume 8.5; Monocytes # (A) 4.6 k/uL (0-1.0); Monocytes % (A) 11 %; Neutrophils # (A) 33.8 k/uL (1.3-7.7); Neutrophils % (A) 83 %; Platelet Count 236 k/uL (150-450); RBC 2.92 m/uL (4.30-5.90); RDW 15.2 % (11.5-15.5); WBC 40.9 k/uL (3.8-10.6)
[2020-09-27 10:52] LABS: Poikilocytosis (M) Present
[2020-09-27 11:14] LABS: T4, Free (Free Thyroxine) 2.32 ng/dL (0.78-2.19)
[2020-09-27 12:13] LABS: Glucose,Whole Blood 136 mg/dL (75-99)
--- NOTE | 2020-09-27 13:01 | P.PN ---
Subjective This is an 89-year-old male patient of Dr. Good and Dr. Monge with past medical history of diabetes mellitus type 2, hypertension, hyperlipidemia, Graves' disease, status post radiation treatment, and myasthenia. Patient was seen in the office about 2 weeks ago for generalized weakness and a near syncopal episode. Patient did have a 24-hour Holter monitor which did not reveal any A. fib or flutter at that time. His also tested for Covid which was negative. Patient was also having low blood sugar readings, Prandin was held. Home care was ordered. Homecare came to evaluate the patient and the nurse found his heart rate to be in the 140s so EMS was called. Initial EKG showed atrial flutter with a rate of 148. He was given a 10 mg bolus of Cardizem, patient became hypotensive in the 80s/50s. He was then switched to amiodarone. Chest x-ray showed left lower lobe pneumonia, he was started on Solu-Medrol, along with ceftriaxone and azithromycin. Repeat Covid test was negative. Troponin was elevated 0.052, 0.055. WBC 35.7, hemoglobin 9.5, potassium 5.6, BUN 62, creatinine 2.02. Pulmonology along with cardiology have been consulted, will obtain echocardiogram. Hematology was also consulted for leukocytosis. 09/27: Patient evaluated this morning, resting comfortably in bed, in no acute distress. Patient had developed a dysphasia, possible reactivation of his myasthenia gravis gravis, although patient does have a history of esophageal stricture. GI was consulted as well as speech therapy. Modified barium swallow showed normal study, no evidence for aspiration or penetration. Once his other medical conditions improve, GI plans on upper endoscopy with dilatation. Hematology consult appreciated for leukocytosis additional lab work pending. 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 UA was positive for infection, continues on ceftriaxone. IV amiodarone was transitioned to oral 400 mg 3 times a day and continue metoprolol 25 mg twice a day, remains on heparin drip. Heart rate still running between 90-110 with atrial fibrillation noted on the monitor. Objective - Vital Signs Vital signs: Vital Signs Temp 97.4 F L 09/27/20 08:00 Pulse 84 09/27/20 11:10 Resp 20 09/27/20 11:10 BP 106/70 09/27/20 11:10 Pulse Ox 92 L 09/27/20 11:10 Intake & Output 09/26/20 09/27/20 09/27/20 18:59 06:59 18:59 Intake Total 240 Output Total 300 340 100 Balance -60 -340 -100 Weight 76.9 kg Intake: Oral 240 Output: Urine 300 340 100 Other: Voiding Method Urinal Urinal Urinal Diaper Diaper Diaper Incontinent Incontinent Incontinent # Voids 1 1 - Exam - Constitutional General appearance: cooperative, no acute distress - EENT Eyes: PERRLA ENT: hard of hearing, normal oropharynx - Neck Neck: no lymphadenopathy, normal ROM - Respiratory Respiratory: left: diminished, rhonchi - Cardiovascular Rhythm: irregularly irregular, tachycardia Heart sounds: normal: S1, S2 - Gastrointestinal General gastrointestinal: no distended, no organomegaly, soft, no tenderness - Neurologic Neurologic: CNII-XII intact - Musculoskeletal Musculoskeletal: generalized weakness, strength equal bilaterally, no right sided weakness, no left sided weakness - Psychiatric Psychiatric: A&O x's 3, appropriate affect, intact judgment & insight - Labs CBC & Chem 7: 09/27/20 09:09 09/25/20 14:37 Labs: Abnormal Lab Results - Last 24 Hours (Table) 09/25/20 09/26/20 09/26/20 Range/Units 14:37 09:09 09:09 WBC (3.8-10.6) k/uL RBC (4.30-5.90) m/uL Hgb (13.0-17.5) gm/dL Hct (39.0-53.0) % Neutrophils # (1.3-7.7) k/uL Monocytes # (0-1.0) k/uL POC Glucose (mg/dL) (75-99) mg/dL Hemoglobin A1c 6.9 H (4.0-6.0) % Uric Acid 10.3 H (3.5-8.5) mg/dL Iron 23 L (65-175) ug/dL % Saturation 9.24 L (15.00-50.00) Ferritin 325.6 H (22.0-322.0) ng/mL Vitamin B12 2026.0 H (200.0-944.0) pg/mL Procalcitonin 0.35 H (0.02-0.09) ng/mL TSH (0.465-4.680) mIU/L Free T4 (0.78-2.19) ng/dL 09/26/20 09/26/20 09/26/20 Range/Units 17:00 20:16 21:32 WBC (3.8-10.6) k/uL RBC (4.30-5.90) m/uL Hgb (13.0-17.5) gm/dL Hct (39.0-53.0) % Neutrophils # (1.3-7.7) k/uL Monocytes # (0-1.0) k/uL POC Glucose (mg/dL) 231 H 266 H 208 H (75-99) mg/dL Hemoglobin A1c (4.0-6.0) % Uric Acid (3.5-8.5) mg/dL Iron (65-175) ug/dL % Saturation (15.00-50.00) Ferritin (22.0-322.0) ng/mL Vitamin B12 (200.0-944.0) pg/mL Procalcitonin (0.02-0.09) ng/mL TSH (0.465-4.680) mIU/L Free T4 (0.78-2.19) ng/dL 09/27/20 09/27/20 09/27/20 Range/Units 06:09 09:09 09:09 WBC 40.9 H (3.8-10.6) k/uL RBC 2.92 L (4.30-5.90) m/uL Hgb 8.8 L (13.0-17.5) gm/dL Hct 27.2 L (39.0-53.0) % Neutrophils # 33.8 H (1.3-7.7) k/uL Monocytes # 4.6 H (0-1.0) k/uL POC Glucose (mg/dL) 200 H (75-99) mg/dL Hemoglobin A1c (4.0-6.0) % Uric Acid (3.5-8.5) mg/dL Iron (65-175) ug/dL % Saturation (15.00-50.00) Ferritin (22.0-322.0) ng/mL Vitamin B12 (200.0-944.0) pg/mL Procalcitonin (0.02-0.09) ng/mL TSH 0.024 L (0.465-4.680) mIU/L Free T4 2.32 H (0.78-2.19) ng/dL 09/27/20 Range/Units 12:12 WBC (3.8-10.6) k/uL RBC (4.30-5.90) m/uL Hgb (13.0-17.5) gm/dL Hct (39.0-53.0) % Neutrophils # (1.3-7.7) k/uL Monocytes # (0-1.0) k/uL POC Glucose (mg/dL) 136 H (75-99) mg/dL Hemoglobin A1c (4.0-6.0) % Uric Acid (3.5-8.5) mg/dL Iron (65-175) ug/dL % Saturation (15.00-50.00) Ferritin (22.0-322.0) ng/mL Vitamin B12 (200.0-944.0) pg/mL Procalcitonin (0.02-0.09) ng/mL TSH (0.465-4.680) mIU/L Free T4 (0.78-2.19) ng/dL Microbiology - Last 24 Hours (Table) 09/25/20 16:10 Blood Culture - Preliminary Blood No Growth after 24 hours Assessment and Plan Plan: 1. New onset atrial flutter. On amiodarone 400 mg 3 times a day, heparin drip, metoprolol 25 mg twice a day. echocardiogram completed, consult with cardiology. 2. Left-sided pneumonia. Azithromycin along with ceftriaxone, Solu-Medrol 60 mg IV every 6 and updraft treatments. Blood cultures obtained. Negative for Coivd x2. 3. Elevated troponin. Consult with cardiology. 4. Leukocytosis. Hematology following, awaiting additional lab work 5. Acute kidney injury. IV hydration, will continue to watch the kidney function 6. Myasthenia gravis with ocular involvement. Has been off steroids for about a year, on Mestinon 180mg BID and 60mg TID 7. Diabetes mellitus type 2. Prandin 2 mg daily 8. Hypertension. Metoprolol 25 mg twice a day and Norvasc 5 mg daily as needed for blood pressure over 140 systolic 9. Hyperlipidemia. Continue Lipitor 10 mg daily. 10. History of Graves' disease status post radiation treatment 2 years ago with hypothyroidism. Repeat TSH and free T4 ordered, continue levothyroxine 125 g daily 11.. Urinary tract infection. Continue ceftriaxone 12. Dysphagia. With history of esophageal stricture, swallow evaluation completed, GI on consult possible EGD once medically stabilized. 13. GI prophylaxis. Metoprolol 40 mg daily 14. DVT prophylaxis. Heparin infusion The above impression and plan of care have been discussed and directed by signing physician. Pattie Mcqueen nurse practitioner acting as scribe for signing physician.
--- NOTE | 2020-09-27 13:15 | P.PN ---
Subjective Progress Note Date: 09/27/20 Principal diagnosis: Dysphasia This patient is an 82-year-old pleasant white male with multiple comorbidities including myasthenia gravis who was admitted to the hospital because of generalized fatigue, weakness and decreased oral intake for the last 2-3 weeks duration. He has been having trouble with solids and occasionally with liquids. He underwent a modified barium swallow yesterday which reported as negative with no evidence of aspiration or penetration. He denies any heartburn or abdominal pain. He did undergo an upper endoscopy in 2019 which showed distal esophageal stricture for which he underwent a bulb dilation. He is seen and evaluated today, states he is having difficulty even with his pured diet. He states he is taking very small bites and having to wash it down with warm tea. He is denying any vomiting or abdominal pain. He is currently also being treated for atrial fibrillation he was on a heparin drip, has been transitioned over to oral liquids and amiodarone. He also underwent an abdominal ultrasound which is a hydropic gallbladder with questionable wall thickening, correlate for possible cholecystitis. Correlate for medical renal disease. Aortic ectasia. Some limitations on exam. Objective - Vital Signs Vital signs: Vital Signs Temp 97.4 F L 09/27/20 08:00 Pulse 110 H 09/27/20 08:00 Resp 18 09/27/20 08:00 BP 120/87 09/27/20 08:00 Pulse Ox 97 09/27/20 08:00 Intake & Output 09/26/20 09/27/20 09/27/20 18:59 06:59 18:59 Intake Total 240 Output Total 300 340 100 Balance -60 -340 -100 Weight 76.9 kg Intake: Oral 240 Output: Urine 300 340 100 Other: Voiding Method Urinal Urinal Urinal Diaper Diaper Diaper Incontinent Incontinent Incontinent # Voids 1 1 - Exam General appearance: The patient is alert, oriented, in no acute distress. HET: Head is normocephalic and atraumatic. Conjunctiva pink. Sclera anicteric. Neck: Supple without lymphadenopathy. Abdomen: Soft, nontender, nondistended with bowel sounds. No guarding or rigidity. Extremities: Normal skin color and turgor. No pedal edema Neurological: No focal deficits. Alert and oriented 3. - Labs CBC & Chem 7: 09/27/20 09:09 09/25/20 14:37 Labs: Abnormal Lab Results - Last 24 Hours (Table) 09/25/20 09/26/20 09/26/20 Range/Units 14:37 09:09 09:09 WBC 36.3 H (3.8-10.6) k/uL RBC 3.32 L (4.30-5.90) m/uL Hgb 9.7 L (13.0-17.5) gm/dL Hct 31.1 L (39.0-53.0) % Neutrophils # 32.1 H (1.3-7.7) k/uL Lymphocytes # 0.2 L (1.0-4.8) k/uL Monocytes # 2.7 H (0-1.0) k/uL Basophils # 0.4 H (0-0.2) k/uL APTT 43.4 H (22.0-30.0) sec POC Glucose (mg/dL) (75-99) mg/dL Hemoglobin A1c (4.0-6.0) % Uric Acid 10.3 H (3.5-8.5) mg/dL Iron 23 L (65-175) ug/dL % Saturation 9.24 L (15.00-50.00) Ferritin 325.6 H (22.0-322.0) ng/mL Vitamin B12 2026.0 H (200.0-944.0) pg/mL Procalcitonin (0.02-0.09) ng/mL 09/26/20 09/26/20 09/26/20 Range/Units 09:09 09:09 11:24 WBC (3.8-10.6) k/uL RBC (4.30-5.90) m/uL Hgb (13.0-17.5) gm/dL Hct (39.0-53.0) % Neutrophils # (1.3-7.7) k/uL Lymphocytes # (1.0-4.8) k/uL Monocytes # (0-1.0) k/uL Basophils # (0-0.2) k/uL APTT (22.0-30.0) sec POC Glucose (mg/dL) 256 H (75-99) mg/dL Hemoglobin A1c 6.9 H (4.0-6.0) % Uric Acid (3.5-8.5) mg/dL Iron (65-175) ug/dL % Saturation (15.00-50.00) Ferritin (22.0-322.0) ng/mL Vitamin B12 (200.0-944.0) pg/mL Procalcitonin 0.35 H (0.02-0.09) ng/mL 09/26/20 09/26/20 09/26/20 Range/Units 17:00 20:16 21:32 WBC (3.8-10.6) k/uL RBC (4.30-5.90) m/uL Hgb (13.0-17.5) gm/dL Hct (39.0-53.0) % Neutrophils # (1.3-7.7) k/uL Lymphocytes # (1.0-4.8) k/uL Monocytes # (0-1.0) k/uL Basophils # (0-0.2) k/uL APTT (22.0-30.0) sec POC Glucose (mg/dL) 231 H 266 H 208 H (75-99) mg/dL Hemoglobin A1c (4.0-6.0) % Uric Acid (3.5-8.5) mg/dL Iron (65-175) ug/dL % Saturation (15.00-50.00) Ferritin (22.0-322.0) ng/mL Vitamin B12 (200.0-944.0) pg/mL Procalcitonin (0.02-0.09) ng/mL 09/27/20 Range/Units 06:09 WBC (3.8-10.6) k/uL RBC (4.30-5.90) m/uL Hgb (13.0-17.5) gm/dL Hct (39.0-53.0) % Neutrophils # (1.3-7.7) k/uL Lymphocytes # (1.0-4.8) k/uL Monocytes # (0-1.0) k/uL Basophils # (0-0.2) k/uL APTT (22.0-30.0) sec POC Glucose (mg/dL) 200 H (75-99) mg/dL Hemoglobin A1c (4.0-6.0) % Uric Acid (3.5-8.5) mg/dL Iron (65-175) ug/dL % Saturation (15.00-50.00) Ferritin (22.0-322.0) ng/mL Vitamin B12 (200.0-944.0) pg/mL Procalcitonin (0.02-0.09) ng/mL Microbiology - Last 24 Hours (Table) 09/25/20 16:10 Blood Culture - Preliminary Blood No Growth after 24 hours Assessment and Plan (1) Dysphagia Narrative/Plan: This patient has had progressive dysphagia to solids for the last 3 weeks duration. He has had prior history of distal esophageal stricture, for which he underwent EGD with dilation in June 2019 and did well for several months. Most likely he may be having recurrent esophageal stricture. He did have a modified barium swallow that showed no evidence of aspiration or penetration, but there was pooling of the barium in the vallecula and hence a pureed diet was recommended by the speech pathologist. Due to increased difficulty in swallowing, patient will be scheduled for an upper endoscopy this coming . Will hold Eliquis at this time. Current Visit: Yes Status: Acute Code(s): R13.10 - DYSPHAGIA, UNSPECIFIED SNOMED Code(s): 46540848 (2) History of myasthenia gravis Current Visit: Yes Status: Acute Code(s): Z86.69 - PERSONAL HISTORY OF DIS OF THE NERVOUS SYS AND SENSE ORGANS SNOMED Code(s): 770300598 (3) Atrial flutter Narrative/Plan: Patient initially was started on a heparin drip and amiodarone drip, has been transitioned to eliquis and oral amiodarone, cardiology is following closely Current Visit: Yes Status: Acute Code(s): I48.92 - UNSPECIFIED ATRIAL FLUTTER SNOMED Code(s): 3189916 (4) CAP (community acquired pneumonia) Narrative/Plan: On broad-spectrum antibiotics Current Visit: Yes Status: Acute Code(s): J18.9 - PNEUMONIA, UNSPECIFIED ORGANISM SNOMED Code(s): 207506492 (5) Neutrophilic leukocytosis Narrative/Plan: Severe leukocytosis and possible urinary tract infection. Patient is presently on broad-spectrum antibiotics with ceftriaxone and clinically doing well. Hematology is also following. Current Visit: Yes Status: Acute Priority: High Code(s): D72.9 - DISORDER OF WHITE BLOOD CELLS, UNSPECIFIED SNOMED Code(s): 846265899 Plan: 1. Continue with broad-spectrum antibiotics 2. Continue with current medications for atrial flutter, HOLD ELIQUIS 3. Due to progression of dysphasia and inability to eat any solids, we will proceed with with an upper endoscopy with dilation this 4. Continue with pured diet for now with small bites and taking sips of liquid after 5. Continue with Protonix 40 mg twice daily 6. Hold Eliquis 7. We will continue to follow you closely Dr. Kalpesh Hdz I agree with the dictator's note, documented as a scribe by Che Del Rio.
[2020-09-27] MEDS ORDERED: allopurinoL 100 MG TAB PO STA (13:19)
--- NOTE | 2020-09-27 15:41 | P.PN ---
Subjective Progress Note Date: 09/27/20 CHIEF COMPLAINT: a flutter with RVR HISTORY OF PRESENT ILLNESS: 09/26/2020 This is a 89-year-old male with a past medical history significant for hypertension, hyperlipidemia, ischemic cardiomyopathy with previous ejection fraction 40-45%, and Graves' disease. Patient follows in the office with Dr. Monge. We have been asked to see the patient in consultation for new-onset A. fib flutter with RVR. Patient examined this morning at the bedside. Patient states he had a home health nurse at his house yesterday. He appeared short of breath and was found to be tachycardic. He was brought to the hospital for further evaluation. Patient was found to be in aflutter with RVR on admission. He does not have a history of aflutter. The patient was started on a Cardizem drip in the emergency room. However the patient became hypotensive and this was discontinued. He was subsequently started on IV amiodarone per the emergency room physician. He was also started on IV heparin. The patient denies any chest pain or pressure. He denies shortness of breath, although he does appear to have mildly labored breathing during examination. He denies dizziness or lightheadedness. Denies palpitations. Patient underwent nuclear stress test in 2013 revealing a moderate to large prior inferior wall myocardial infarction. No evidence for reversible ischemia. Patient's last cardiac catheterization was performed in February 2006 revealing diffused recanalized LAD suggestive of old anterior PR. Circumflex was nondominant with no significant disease. RCA is dominant with mild irregularities. 09/27/2020 Patient examined this morning at the bedside. He denies chest pain or pressure. Denies shortness of breath. He continues to report dysphagia. He has been started on Eliquis for anticoagulation. Echocardiogram completed reveals ejection fraction 20-25%, mild aortic regurgitation, severe mitral regurgitation, mild tricuspid regurgitation, and mild pulmonary hypertension. PHYSICAL EXAM: VITAL SIGNS: Reviewed. GENERAL: Well-developed in no acute distress. HEENT: Head is normocephalic. Pupils are equal, round. Sclerae anicteric. Mucous membranes of the mouth are moist. Neck supple. No JVD or thyromegaly LUNGS: Respirations even and unlabored. Lungs diminished. HEART: Irregular rate and rhythm. S1 and S2 heard. Systolic murmur noted. EXTREMITIES: Normal range of motion. No clubbing or cyanosis. Peripheral pulses intact. No lower extremity edema ASSESSMENT: Left sided pneumonia Leukocytosis New onset atypical aflutter with RVR Acute on chronic kidney disease Hypertension Hyperlipidemia Ischemic cardiomyopathy with previous ejection fraction 40-45%, now 20-25% Abnormal troponins, may secondary to CKD, troponins are flat and not suggestive of ACS PLAN: Continue Eliquis for anticoagulation Continue amiodarone, Lipitor, metoprolol Discontinue Norvasc Begin Imdur 30 mg daily and hydralazine 25 mg 3 times a day Further recommendations pending patient's course Nurse practitioner note has been reviewed by physician. Signing provider agrees with the documented findings, assessment, and plan of care. Objective - Vital Signs Vital signs: Vital Signs Temp 97.8 F 09/27/20 15:33 Pulse 94 09/27/20 15:33 Resp 20 09/27/20 15:33 BP 126/75 09/27/20 15:33 Pulse Ox 93 L 09/27/20 15:33 Intake & Output 09/26/20 09/27/20 09/27/20 18:59 06:59 18:59 Intake Total 240 Output Total 300 340 100 Balance -60 -340 -100 Weight 76.9 kg Intake: Oral 240 Output: Urine 300 340 100 Other: Voiding Method Urinal Urinal Urinal Diaper Diaper Diaper Incontinent Incontinent Incontinent # Voids 1 1 - Labs CBC & Chem 7: 09/27/20 09:09 09/25/20 14:37 Labs: Abnormal Lab Results - Last 24 Hours (Table) 09/25/20 09/26/20 09/26/20 Range/Units 14:37 09:09 09:09 WBC (3.8-10.6) k/uL RBC (4.30-5.90) m/uL Hgb (13.0-17.5) gm/dL Hct (39.0-53.0) % Neutrophils # (1.3-7.7) k/uL Monocytes # (0-1.0) k/uL POC Glucose (mg/dL) (75-99) mg/dL Hemoglobin A1c 6.9 H (4.0-6.0) % Uric Acid 10.3 H (3.5-8.5) mg/dL Iron 23 L (65-175) ug/dL % Saturation 9.24 L (15.00-50.00) Ferritin 325.6 H (22.0-322.0) ng/mL Vitamin B12 2026.0 H (200.0-944.0) pg/mL Procalcitonin 0.35 H (0.02-0.09) ng/mL TSH (0.465-4.680) mIU/L Free T4 (0.78-2.19) ng/dL 09/26/20 09/26/20 09/26/20 Range/Units 17:00 20:16 21:32 WBC (3.8-10.6) k/uL RBC (4.30-5.90) m/uL Hgb (13.0-17.5) gm/dL Hct (39.0-53.0) % Neutrophils # (1.3-7.7) k/uL Monocytes # (0-1.0) k/uL POC Glucose (mg/dL) 231 H 266 H 208 H (75-99) mg/dL Hemoglobin A1c (4.0-6.0) % Uric Acid (3.5-8.5) mg/dL Iron (65-175) ug/dL % Saturation (15.00-50.00) Ferritin (22.0-322.0) ng/mL Vitamin B12 (200.0-944.0) pg/mL Procalcitonin (0.02-0.09) ng/mL TSH (0.465-4.680) mIU/L Free T4 (0.78-2.19) ng/dL 09/27/20 09/27/20 09/27/20 Range/Units 06:09 09:09 09:09 WBC 40.9 H (3.8-10.6) k/uL RBC 2.92 L (4.30-5.90) m/uL Hgb 8.8 L (13.0-17.5) gm/dL Hct 27.2 L (39.0-53.0) % Neutrophils # 33.8 H (1.3-7.7) k/uL Monocytes # 4.6 H (0-1.0) k/uL POC Glucose (mg/dL) 200 H (75-99) mg/dL Hemoglobin A1c (4.0-6.0) % Uric Acid (3.5-8.5) mg/dL Iron (65-175) ug/dL % Saturation (15.00-50.00) Ferritin (22.0-322.0) ng/mL Vitamin B12 (200.0-944.0) pg/mL Procalcitonin (0.02-0.09) ng/mL TSH 0.024 L (0.465-4.680) mIU/L Free T4 2.32 H (0.78-2.19) ng/dL 09/27/20 Range/Units 12:12 WBC (3.8-10.6) k/uL RBC (4.30-5.90) m/uL Hgb (13.0-17.5) gm/dL Hct (39.0-53.0) % Neutrophils # (1.3-7.7) k/uL Monocytes # (0-1.0) k/uL POC Glucose (mg/dL) 136 H (75-99) mg/dL Hemoglobin A1c (4.0-6.0) % Uric Acid (3.5-8.5) mg/dL Iron (65-175) ug/dL % Saturation (15.00-50.00) Ferritin (22.0-322.0) ng/mL Vitamin B12 (200.0-944.0) pg/mL Procalcitonin (0.02-0.09) ng/mL TSH (0.465-4.680) mIU/L Free T4 (0.78-2.19) ng/dL Microbiology - Last 24 Hours (Table) 09/25/20 16:10 Blood Culture - Preliminary Blood No Growth after 24 hours
--- NOTE | 2020-09-27 15:46 | P.PN ---
Subjective Progress Note Date: 09/27/20 Principal diagnosis: Weakness, generalized aches, dyspnea 89-year-old white male patient with past medical history positive for hypertension, hyperlipidemia, diabetes mellitus type 2, history of myasthenia gravis for which the patient used to follow with the neurologist out of [facility], history of pneumonia, myocardial infarction, history of Graves' disease status post radioactive iodine treatment, who came in to the hospital with complaints of 3 week history of increased weakness, and generalized body aches. Denied any chest pain, denied any hemoptysis, denied any shortness of breath although patient appears to be having conversational dyspnea. Not usually oxygen dependent, denies any chronic lung condition. He is an ex- smoker, quit 40 years ago, but does carry over 20 year pack smoking history. He states he has intermittent episodes of epigastric discomfort when he eats that is relieved with belching. he was found to be in atrial flutter with RVR with a left bundle branch block with a rate of 110 to 130, he was started on Cardizem drip. Chest x-ray showed findings concerning for left-sided pneumonia, and the lab work showed significant leukocytosis with a white blood cell count of 35.7, evidence of 12% bands. His COVID PCR was negative, his lactic acid was 1.9, patient had evidence of acute kidney injury with the BUN of 62 and creatinine of 2.0. Had troponin elevation of 0.052, and proBNP level was 8320. Urinalysis was negative for any sign of infection. Started on azithromycin and Rocephin for antibiotic coverage, and were consulted for pulmonary management. On 09/27/2020 patient seen in follow-up on selective care unit, he is resting in bed, he states his breathing is easier, but still gets dyspneic, is still experiencing sensation of food getting stuck in his chest and feeling of bloating, and pain after swallowing any food, patient's gives a history of esophageal narrowing that has required esophageal dilation which he did not mention yesterday. He states Dr. Cosme has seen him before for the same problem, and she saw him in consultation yesterday with the plan of esophageal dilatation on 09/29/2020 to evaluate his progressive dysphagia to solids. For now patient continues on pured diet. Lung sounds reveal diminished breath sounds, with basilar crackles, remains on 4 L of oxygen the pulse ox of 93%, hemodynamically has been stable. Blood cultures have no growth. Today's labs have been reviewed, his white blood cell count continues to increase, and up to 40.9 on today's labs, hemoglobin is 8.8, his pro-calcitonin level came back 0.35. patient remains on Rocephin for antibiotic coverage. His had nausea or vomiting. Objective - Vital Signs Vital signs: Vital Signs Temp 97.4 F L 09/27/20 08:00 Pulse 84 09/27/20 14:00 Resp 20 09/27/20 14:00 BP 106/70 09/27/20 11:10 Pulse Ox 92 L 09/27/20 11:10 Intake & Output 09/26/20 09/27/20 09/27/20 18:59 06:59 18:59 Intake Total 240 Output Total 300 340 100 Balance -60 -340 -100 Weight 76.9 kg Intake: Oral 240 Output: Urine 300 340 100 Other: Voiding Method Urinal Urinal Urinal Diaper Diaper Diaper Incontinent Incontinent Incontinent # Voids 1 1 - Exam GENERAL EXAM: Alert, very pleasant, 82-year-old white female, 4 L of oxygen with pulse ox of 93%, he has conversational dyspnea, but no acute distress HEAD: Normocephalic/atraumatic. EYES: Normal reaction of pupils, equal size. Conjunctiva pink, sclera white. NOSE: Clear with pink turbinates. THROAT: No erythema or exudates. NECK: No masses, no JVD, no thyroid enlargement, no adenopathy. CHEST: No chest wall deformity. Symmetrical expansion. LUNGS: Equal air entry with fine inspiratory crackles at bilateral bases, but no wheeze, rhonchi or dullness. CVS: Regular rate and rhythm, normal S1 and S2, no gallops, no murmurs, no rubs ABDOMEN: Soft, nontender. No hepatosplenomegaly, normal bowel sounds, no guarding or rigidity. EXTREMITIES: No clubbing, no edema, no cyanosis, 2+ pulses and upper and lower extremities. MUSCULOSKELETAL: Muscle strength and tone normal. SPINE: No scoliosis or deformity SKIN: No rashes CENTRAL NERVOUS SYSTEM: Alert and oriented -3. No focal deficits, tone is normal in all 4 extremities. PSYCHIATRIC: Alert and oriented -3. Appropriate affect. Intact judgment and insight. - Labs CBC & Chem 7: 09/27/20 09:09 09/25/20 14:37 Labs: Abnormal Lab Results - Last 24 Hours (Table) 09/25/20 09/26/20 09/26/20 Range/Units 14:37 09:09 09:09 WBC (3.8-10.6) k/uL RBC (4.30-5.90) m/uL Hgb (13.0-17.5) gm/dL Hct (39.0-53.0) % Neutrophils # (1.3-7.7) k/uL Monocytes # (0-1.0) k/uL POC Glucose (mg/dL) (75-99) mg/dL Hemoglobin A1c 6.9 H (4.0-6.0) % Uric Acid 10.3 H (3.5-8.5) mg/dL Iron 23 L (65-175) ug/dL % Saturation 9.24 L (15.00-50.00) Ferritin 325.6 H (22.0-322.0) ng/mL Vitamin B12 2026.0 H (200.0-944.0) pg/mL Procalcitonin 0.35 H (0.02-0.09) ng/mL TSH (0.465-4.680) mIU/L Free T4 (0.78-2.19) ng/dL 09/26/20 09/26/20 09/26/20 Range/Units 17:00 20:16 21:32 WBC (3.8-10.6) k/uL RBC (4.30-5.90) m/uL Hgb (13.0-17.5) gm/dL Hct (39.0-53.0) % Neutrophils # (1.3-7.7) k/uL Monocytes # (0-1.0) k/uL POC Glucose (mg/dL) 231 H 266 H 208 H (75-99) mg/dL Hemoglobin A1c (4.0-6.0) % Uric Acid (3.5-8.5) mg/dL Iron (65-175) ug/dL % Saturation (15.00-50.00) Ferritin (22.0-322.0) ng/mL Vitamin B12 (200.0-944.0) pg/mL Procalcitonin (0.02-0.09) ng/mL TSH (0.465-4.680) mIU/L Free T4 (0.78-2.19) ng/dL 09/27/20 09/27/20 09/27/20 Range/Units 06:09 09:09 09:09 WBC 40.9 H (3.8-10.6) k/uL RBC 2.92 L (4.30-5.90) m/uL Hgb 8.8 L (13.0-17.5) gm/dL Hct 27.2 L (39.0-53.0) % Neutrophils # 33.8 H (1.3-7.7) k/uL Monocytes # 4.6 H (0-1.0) k/uL POC Glucose (mg/dL) 200 H (75-99) mg/dL Hemoglobin A1c (4.0-6.0) % Uric Acid (3.5-8.5) mg/dL Iron (65-175) ug/dL % Saturation (15.00-50.00) Ferritin (22.0-322.0) ng/mL Vitamin B12 (200.0-944.0) pg/mL Procalcitonin (0.02-0.09) ng/mL TSH 0.024 L (0.465-4.680) mIU/L Free T4 2.32 H (0.78-2.19) ng/dL 09/27/20 Range/Units 12:12 WBC (3.8-10.6) k/uL RBC (4.30-5.90) m/uL Hgb (13.0-17.5) gm/dL Hct (39.0-53.0) % Neutrophils # (1.3-7.7) k/uL Monocytes # (0-1.0) k/uL POC Glucose (mg/dL) 136 H (75-99) mg/dL Hemoglobin A1c (4.0-6.0) % Uric Acid (3.5-8.5) mg/dL Iron (65-175) ug/dL % Saturation (15.00-50.00) Ferritin (22.0-322.0) ng/mL Vitamin B12 (200.0-944.0) pg/mL Procalcitonin (0.02-0.09) ng/mL TSH (0.465-4.680) mIU/L Free T4 (0.78-2.19) ng/dL Microbiology - Last 24 Hours (Table) 09/25/20 16:10 Blood Culture - Preliminary Blood No Growth after 24 hours Assessment and Plan Plan: Assessment: #1. Acute hypoxic respiratory failure related to pneumonia, community-acquired versus aspiration pneumonia. COVID 19 PCR was negative #2. Chest discomfort after eating, dysphagia, related to recurrent esophageal stricture, with previous history of esophageal dilation in June 2019. Patient is scheduled for another EGD with esophageal dilation on 09/29/2020, height barium swallow showed no evidence of aspiration or penetration, but did show pooling of the barium in the vallecula #3. Elevated troponins, rule out possibility of non-ST elevated myocardial infarction #3. Atrial flutter with RVR, new onset, on amiodarone drip and heparin drip #4. Leukocytosis #5. Acute kidney injury #6. Non-anion gap metabolic acidosis related to DIOGENES #7. 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 Hypertension #9. Hyperlipidemia #10. Diabetes mellitus type 2 #11. History of myasthenia gravis on Mestinon #12. Hypothyroidism, history of Graves' disease status post radioactive iodine treatment #13. Previous history of myocardial infarction #14. Previous history of pneumonia #15. Previous history of ischemic cardiomyopathy with an ejection fraction of 40-45% Plan: Continue current antibiotics, patient is breathing easier, still having difficulty with swallowing, has been switched over to pureed diet, GI service is following and is planned and on EGD and esophageal dilation on 09/29/2020. Follow-up chest x-ray in the morning, follow-up labs and pro-calcitonin. co ntinue with nebulized bronchodilators. I performed a history & physical examination of the patient and discussed their management with my nurse practitioner, Mei Cruz. I reviewed the nurse pr actitioner's note and agree with the documented findings and plan of care. Lung sounds are positive for fine bibasilar rales. The findings and the impression was discussed with the patient. I attest to the documentation by the nurse practitioner. Time with Patient: Less than 30
[2020-09-27] MEDS: hydrALAZINE HCL 25 MG TAB PO SCH ×2 (15:55→20:42)
[2020-09-27 17:17] LABS: Glucose,Whole Blood 150 mg/dL (75-99)
--- NOTE | 2020-09-27 18:45 | P.PN ---
Subjective Progress Note Date: 09/27/20 Principal diagnosis: A-flutter, SOB, weakness In f/u today pt states feeling a little better then yesterday. Moderately weak, SOB persists but not progressive at this time. Eating and drinking still a problem due to everything feeling like its stuck and won't completely go down. No fever. Objective - Vital Signs Vital signs: Vital Signs Temp 97.4 F L 09/27/20 08:00 Pulse 84 09/27/20 11:10 Resp 20 09/27/20 11:10 BP 106/70 09/27/20 11:10 Pulse Ox 92 L 09/27/20 11:10 Intake & Output 09/26/20 09/27/20 09/27/20 18:59 06:59 18:59 Intake Total 240 Output Total 300 340 100 Balance -60 -340 -100 Weight 76.9 kg Intake: Oral 240 Output: Urine 300 340 100 Other: Voiding Method Urinal Urinal Urinal Diaper Diaper Diaper Incontinent Incontinent Incontinent # Voids 1 1 - Constitutional General appearance: Present: average body habitus, cooperative, mild distress - EENT Eyes: Present: anicteric sclerae, EOMI ENT: Present: hearing grossly normal - Respiratory Respiratory: bilateral: diminished - Cardiovascular Rhythm: irregularly irregular Heart sounds: normal: S1, S2 Abnormal Heart Sounds: Present: systolic murmur. Absent: diastolic murmur, rub, S3 Gallop, S4 Gallop, click, other - Peripheral edema leg Peripheral Edema: bilateral: None - Gastrointestinal General gastrointestinal: Present: normal bowel sounds, soft. Absent: absent bowel sounds, decreased bowel sounds, distended, hepatomegaly, hyperactive bowel sounds, organomegaly, rigid, scaphoid, splenomegaly, tenderness, umbilical h ernia, ventral hernia - Neurologic Neurologic: Present: CNII-XII intact - Musculoskeletal Musculoskeletal: Present: generalized weakness - Psychiatric Psychiatric: Present: A&O x's 3, appropriate affect, intact judgment & insight - Labs CBC & Chem 7: 09/27/20 09:09 09/25/20 14:37 Labs: Abnormal Lab Results - Last 24 Hours (Table) 09/25/20 09/26/20 09/26/20 Range/Units 14:37 09:09 09:09 WBC (3.8-10.6) k/uL RBC (4.30-5.90) m/uL Hgb (13.0-17.5) gm/dL Hct (39.0-53.0) % Neutrophils # (1.3-7.7) k/uL Monocytes # (0-1.0) k/uL POC Glucose (mg/dL) (75-99) mg/dL Hemoglobin A1c 6.9 H (4.0-6.0) % Uric Acid 10.3 H (3.5-8.5) mg/dL Iron 23 L (65-175) ug/dL % Saturation 9.24 L (15.00-50.00) Ferritin 325.6 H (22.0-322.0) ng/mL Vitamin B12 2026.0 H (200.0-944.0) pg/mL Procalcitonin 0.35 H (0.02-0.09) ng/mL TSH (0.465-4.680) mIU/L Free T4 (0.78-2.19) ng/dL 09/26/20 09/26/20 09/26/20 Range/Units 17:00 20:16 21:32 WBC (3.8-10.6) k/uL RBC (4.30-5.90) m/uL Hgb (13.0-17.5) gm/dL Hct (39.0-53.0) % Neutrophils # (1.3-7.7) k/uL Monocytes # (0-1.0) k/uL POC Glucose (mg/dL) 231 H 266 H 208 H (75-99) mg/dL Hemoglobin A1c (4.0-6.0) % Uric Acid (3.5-8.5) mg/dL Iron (65-175) ug/dL % Saturation (15.00-50.00) Ferritin (22.0-322.0) ng/mL Vitamin B12 (200.0-944.0) pg/mL Procalcitonin (0.02-0.09) ng/mL TSH (0.465-4.680) mIU/L Free T4 (0.78-2.19) ng/dL 09/27/20 09/27/20 09/27/20 Range/Units 06:09 09:09 09:09 WBC 40.9 H (3.8-10.6) k/uL RBC 2.92 L (4.30-5.90) m/uL Hgb 8.8 L (13.0-17.5) gm/dL Hct 27.2 L (39.0-53.0) % Neutrophils # 33.8 H (1.3-7.7) k/uL Monocytes # 4.6 H (0-1.0) k/uL POC Glucose (mg/dL) 200 H (75-99) mg/dL Hemoglobin A1c (4.0-6.0) % Uric Acid (3.5-8.5) mg/dL Iron (65-175) ug/dL % Saturation (15.00-50.00) Ferritin (22.0-322.0) ng/mL Vitamin B12 (200.0-944.0) pg/mL Procalcitonin (0.02-0.09) ng/mL TSH 0.024 L (0.465-4.680) mIU/L Free T4 2.32 H (0.78-2.19) ng/dL 09/27/20 Range/Units 12:12 WBC (3.8-10.6) k/uL RBC (4.30-5.90) m/uL Hgb (13.0-17.5) gm/dL Hct (39.0-53.0) % Neutrophils # (1.3-7.7) k/uL Monocytes # (0-1.0) k/uL POC Glucose (mg/dL) 136 H (75-99) mg/dL Hemoglobin A1c (4.0-6.0) % Uric Acid (3.5-8.5) mg/dL Iron (65-175) ug/dL % Saturation (15.00-50.00) Ferritin (22.0-322.0) ng/mL Vitamin B12 (200.0-944.0) pg/mL Procalcitonin (0.02-0.09) ng/mL TSH (0.465-4.680) mIU/L Free T4 (0.78-2.19) ng/dL Microbiology - Last 24 Hours (Table) 09/25/20 16:10 Blood Culture - Preliminary Blood No Growth after 24 hours - Imaging and Cardiology Abdominal x-ray: report reviewed US - abdomen: report reviewed Assessment and Plan (1) Neutrophilic leukocytosis Narrative/Plan: New/sudden onset. Peripheral smear, documented as performed, no documentation of blasts. Additional lab workup is most suggestive of a reactive process. Nothing acute from an Oncology standpoint. CBC daily. Cont treatment of underlying conditions/infections Current Visit: Yes Status: Acute Priority: High Code(s): D72.9 - DISORDER OF WHITE BLOOD CELLS, UNSPECIFIED SNOMED Code(s): 806013350 Plan: GI consult for patient's chronic history, he follows with Dr. Hdz. Pt has complaints of epigastric pain. Pending consult US abd to evaluate spleen-no evidence of splenomegaly, possible cholecystitis.
[2020-09-27] MEDS: GABAPENTIN 100 MG CAP PO SCH (20:42)
[2020-09-27 20:49] LABS: Glucose,Whole Blood 121 mg/dL (75-99)
[2020-09-28] MEDS: HYDROcodone/APAP 10-325MG 1 EACH TAB PO PRN ×5 (00:32→21:00)
[2020-09-28 06:14] LABS: Glucose,Whole Blood 123 mg/dL (75-99)
[2020-09-28] MEDS: INSULIN ASPART (NovoLOG) 100 UNIT/ML VIAL SQ SCH ×4 (06:25→20:56)
[2020-09-28] MEDS: PANTOPRAZOLE 40 MG TABLET PO SCH (06:28)
[2020-09-28] MEDS: LEVOTHYROXINE 125 MCG TAB PO SCH (06:29)
[2020-09-28] MEDS: PYRIDOSTIGMINE 60 MG TAB PO SCH ×3 (06:29→17:47)
--- NOTE | 2020-09-28 07:25 | XR ---
EXAMINATION TYPE: XR chest 1V portable DATE OF EXAM: 09/28/2020 HISTORY: Shortness of breath. COMPARISON: 09/25/2020 TECHNIQUE: Single view of the chest is submitted. FINDINGS: Demonstrated are scattered senescent parenchymal change. Patchy perihilar and basilar infiltrates are noted. Significant interval progression is identified. The heart is stable. Hilar and mediastinal structures are within normal limits. Degenerative changes are seen of the dorsal spine. IMPRESSION: 1. Patchy perihilar and basilar infiltrates are noted. Significant interval progression is identifie d.
[2020-09-28] MEDS: SYMBICORT 160-4.5 MCG INHALER INHALATION SCH ×2 (08:07→21:44)
[2020-09-28 08:08] LABS: HCT 29.7 % (39.0-53.0); HGB 9.4 gm/dL (13.0-17.5); Hypochromasia Moderate; MCH 28.9 pg (25.0-35.0); MCHC 31.5 g/dL (31.0-37.0); MCV 91.7 fL (80.0-100.0); Mean Platelet Volume 8.5; Platelet Count 219 k/uL (150-450); RBC 3.24 m/uL (4.30-5.90); RDW 15.4 % (11.5-15.5); WBC 48.5 k/uL (3.8-10.6)
[2020-09-28] MEDS: AMIODARONE 200 MG TAB PO SCH ×3 (09:25→21:00)
[2020-09-28] MEDS: hydrALAZINE HCL 25 MG TAB PO SCH ×3 (09:26→21:00)
[2020-09-28] MEDS: METOPROLOL TARTRATE 25 MG TAB PO SCH ×2 (09:26→21:00)
[2020-09-28] MEDS: ONDANSETRON 4 MG/2 ML VIAL IVP PRN ×3 (09:26→21:01)
[2020-09-28] MEDS: REPAGLINIDE 1 MG TAB PO SCH (09:26)
[2020-09-28] MEDS: ISOSORBIDE MONONITRATE ER 30 MG TAB.ER.24H PO SCH (09:26)
[2020-09-28] MEDS: ATORVASTATIN 10 MG TAB PO SCH (09:26)
--- NOTE | 2020-09-28 09:37 | CDI ---
Documentation Clarification Form Date: 09/28/2020 09:26:12 AM From: Mai Sood RN, CCDS Admit Date: 09/25/2020 04:59:00 PM Patient Name: Zane Espinoza Visit Number: [id number] ATTENTION: The Clinical Documentation Specialists (CDI) and [facility] Coding Staff appreciate your assistance in clarifying documentation. Please respond to the clarification below the line at the bottom and electronically sign. The CDI & [facility] Coding staff will review the response and follow-up if needed. Please note: Queries are made part of the Legal Health Record. If you have any questions, please contact the author of this message via ITS. Dr. Eron Good CKD is documented in the 09/26 Cardiology Consult and 09/27 cardiology Progress note and requires further specificity. History/Risk Factors: 01/17/18 Patients Historical BUN/CR/GFR: 37/1. Acute hypoxic respiratory failure with pneumonia, Atypical Atrial Flutter, DIOGENES, Cardiomyopathy w/ EF 40-45%, HTN Clinical Indicators: 09/25/2020 Current BUN/CR/GFR: 62/2.- (there is documentation inn Attending notes that repeat will be ordered- but has not been) 09/26 & 09/27 Cardiology Consult and progress notes: "Acute on chronic kidney disease. Abnormal troponins, may secondary to CKD, troponins are flat and not suggestive of ACS." Treatment: No Nephrology Consult Ordered 09/25/2020 500 cc 0.9% NS IVF Bolus In order to capture the severity of condition, please clarify the stage of the CKD, if known: CKD ruled out CKD Stage 1 (GFR > 90) CKD Stage 2 (GFR 60-89) xx CKD Stage 3a (GFR 45-59) CKD Stage 3b (GFR 30-44) CKD Stage 4 (GFR 15-29) Other, please specify Unable to determine [Template last reviewed: June 2020] MTDD
[2020-09-28 09:53] LABS: Lymphocytes # (M) 1.94 k/uL (1.0-4.8); Monocytes # (M) 9.22 k/uL (0-1.0); Neutrophils # (M) 37.35 k/uL (1.3-7.7); Neutrophils % (M) 77 %; Nucleated Red Blood Cells 0 /100 WBC (0-0); Total Cells Counted 100
[2020-09-28 09:54] LABS: Poikilocytosis (M) Present
--- NOTE | 2020-09-28 10:18 | CDI ---
Documentation Clarification Form Date: 09/28/2020 09:38:29 AM From: Mai Sood RN, CCDS Admit Date: 09/25/2020 04:59:00 PM Patient Name: Zane Espinoza Visit Number: [id number] ATTENTION: The Clinical Documentation Specialists (CDI) and [facility] Coding Staff appreciate your assistance in clarifying documentation. Please respond to the clarification below the line at the bottom and electronically sign. The CDI & [facility] Coding staff will review the response and follow-up if needed. Please note: Queries are made part of the Legal Health Record. If you have any questions, please contact the author of this message via ITS. Dr. Eron Good CHF is documented in the PMH of the H&P and Consults and requires further specificity. History/Risk Factors: CHF, Ischemic cardiomyopathy, HTN, Myasthenia gravis, HLD, DM2, Atypical Atrial Flutter, DIOGENES on CKD Clinical Indicators: 09/26 H&P: "PMH: Heart failure" 09/26 Cardiology Consult: "Ischemic cardiomyopathy with previous ejection fraction 40-45% abnormal troponins, may secondary to CKD, troponins are flat and not suggestive of ACS. VS/Pulse OX: 09/25 BNP: 8320 09/26 Echocardiogram Results: EF 20-25%, severe global hypokinesis, LA severely dilated, severe mitral regurg, IVF mildly dilated 09/28 Chest X Ray: Patchy perihilar and basilar infiltrates are noted. Significant interval progression is identified. Treatment: Lopressor 25 mg PO BID Imdur 30 mg PO QD Apresoline 25 mg PO TID 09/26 Lasix 40 mg IVP x 1 dose Cordarone 400 mg PO TID In your professional opinion, can you please clarify the acuity and type of CHF if known? Systolic Heart Failure: Acute Chronic Acute on Chronic x Diastolic Heart Failure: Acute xx Chronic Acute on Chronic Systolic & Diastolic Heart Failure: Acute Chronic Acute on Chronic Heart Failure Unable to Determine Other, please specify (Last Revision: January 2018) MTDD
[2020-09-28] MEDS: SODIUM CHLORIDE 0.9% 1,000 ML IV SCH ×2 (10:35→23:39)
--- NOTE | 2020-09-28 12:20 | P.PN ---
Subjective Progress Note Date: 09/28/20 Principal diagnosis: Dysphasia This patient is an 82-year-old pleasant white male with multiple comorbidities including myasthenia gravis who was admitted to the hospital because of generalized fatigue, weakness and decreased oral intake for the last 2-3 weeks duration. He has been having trouble with solids and occasionally with liquids. He underwent a modified barium swallow which reported as negative with no evidence of aspiration or penetration. Also been diagnosed with a urinary tract infection and pneumonia for which he is being treated. He denies any heartburn or abdominal pain. He did undergo an upper endoscopy in 2019 which showed distal esophageal stricture for which he underwent a bulb dilation. He is seen and evaluated today, states he is able to eat any solids, he is only tolerating warm tea. He does have to regularly clear his throat and has a cough. He did cough up small amount of deshaun red blood this morning. Anticoagulation remains on hold. He is scheduled to proceed with an upper endoscopy tomorrow morning. Objective - Vital Signs Vital signs: Vital Signs Temp 97.6 F 09/28/20 11:04 Pulse 113 H 09/28/20 11:04 Resp 18 09/28/20 11:04 BP 111/71 09/28/20 11:04 Pulse Ox 94 L 09/28/20 11:04 Intake & Output 09/27/20 09/28/20 09/28/20 18:59 06:59 18:59 Intake Total 825 150 Output Total 100 Balance 725 150 Weight 70.5 kg Intake: Intake, IV Titration 825 150 Amount Sodium Chloride 0.9% 1, 825 150 000 ml @ 75 mls/hr IV . [id number] [facility] Rx#:[id number] Output: Urine 100 Other: Voiding Method Urinal Urinal Urinal Diaper Diaper Diaper Incontinent Incontinent Incontinent # Voids 1 3 - Exam General appearance: The patient is alert, oriented, in no acute distress. HET: Head is normocephalic and atraumatic. Conjunctiva pink. Sclera anicteric. Neck: Supple without lymphadenopathy. Abdomen: Soft, nontender, nondistended with bowel sounds. No guarding or rigidity. Extremities: Normal skin color and turgor. No pedal edema Neurological: No focal deficits. Alert and oriented 3. - Labs CBC & Chem 7: 09/28/20 07:05 09/25/20 14:37 Labs: Abnormal Lab Results - Last 24 Hours (Table) 09/27/20 09/27/20 09/28/20 Range/Units 17:12 20:47 05:58 WBC (3.8-10.6) k/uL RBC (4.30-5.90) m/uL Hgb (13.0-17.5) gm/dL Hct (39.0-53.0) % Neutrophils # (Manual) (1.3-7.7) k/uL Monocytes # (Manual) (0-1.0) k/uL POC Glucose (mg/dL) 150 H 121 H 123 H (75-99) mg/dL Procalcitonin (0.02-0.09) ng/mL 09/28/20 09/28/20 Range/Units 07:05 07:05 WBC 48.5 H (3.8-10.6) k/uL RBC 3.24 L (4.30-5.90) m/uL Hgb 9.4 L (13.0-17.5) gm/dL Hct 29.7 L (39.0-53.0) % Neutrophils # (Manual) 37.35 H (1.3-7.7) k/uL Monocytes # (Manual) 9.22 H (0-1.0) k/uL POC Glucose (mg/dL) (75-99) mg/dL Procalcitonin 0.25 H (0.02-0.09) ng/mL Microbiology - Last 24 Hours (Table) 09/25/20 16:10 Blood Culture - Preliminary Blood No Growth after 48 hours Assessment and Plan (1) Dysphagia Narrative/Plan: This patient has had progressive dysphagia to solids for the last 3 weeks duration. He has had prior history of distal esophageal stricture, for which he underwent EGD with dilation in June 2019 and did well for several months. Most likely he may be having recurrent esophageal stricture. He did have a modified barium swallow that showed no evidence of aspiration or penetration, but there was pooling of the barium in the vallecula and hence a pureed diet was recommended by the speech pathologist. Due to increased difficulty in swallowing, patient will see with an upper endoscopy tomorrow. Nothing by mouth after midnight. Continue to hold Eliquis at this time. Current Visit: Yes Status: Acute Code(s): R13.10 - DYSPHAGIA, UNSPECIFIED SNOMED Code(s): 90411675 (2) History of myasthenia gravis Current Visit: Yes Status: Acute Code(s): Z86.69 - PERSONAL HISTORY OF DIS OF THE NERVOUS SYS AND SENSE ORGANS SNOMED Code(s): 005468425 (3) Atrial flutter Narrative/Plan: Patient initially was started on a heparin drip and amiodarone drip, has been transitioned to eliquis and oral amiodarone, cardiology is following closely. Eliquis on hold for upper endoscopy. Current Visit: Yes Status: Acute Code(s): I48.92 - UNSPECIFIED ATRIAL FLUTTER SNOMED Code(s): 4813875 (4) CAP (community acquired pneumonia) Narrative/Plan: On broad-spectrum antibiotics Current Visit: Yes Status: Acute Code(s): J18.9 - PNEUMONIA, UNSPECIFIED ORGANISM SNOMED Code(s): 674488063 (5) Neutrophilic leukocytosis Narrative/Plan: Severe leukocytosis and possible urinary tract infection. Patient is presently on broad-spectrum antibiotics with ceftriaxone and clinically doing well. Hematology is also following. Current Visit: Yes Status: Acute Priority: High Code(s): D72.9 - DISORDER OF WHITE BLOOD CELLS, UNSPECIFIED SNOMED Code(s): 378127571 Plan: 1. Continue with broad-spectrum antibiotics 2. Continue with current medications for atrial flutter, HOLD ELIQUIS 3. Due to progression of dysphasia and inability to eat any solids, we will proceed with with an upper endoscopy with dilation tomorrow 4. By mouth after midnight 5. Continue with Protonix 40 mg twice daily 6. Hold Eliquis 7. Will order Glucerna per patient request, chocolate 8. We will continue to follow you closely Dr. Kalpesh Hdz I agree with the dictator's note, documented as a scribe by Che Del Rio.
[2020-09-28 12:27] LABS: Glucose,Whole Blood 104 mg/dL (75-99)
--- NOTE | 2020-09-28 13:55 | P.PN ---
Subjective This is an 89-year-old male patient of Dr. Good and Dr. Monge with past medical history of diabetes mellitus type 2, hypertension, hyperlipidemia, Graves' disease, status post radiation treatment, and myasthenia. Patient was seen in the office about 2 weeks ago for generalized weakness and a near syncopal episode. Patient did have a 24-hour Holter monitor which did not reveal any A. fib or flutter at that time. His also tested for Covid which was negative. Patient was also having low blood sugar readings, Prandin was held. Home care was ordered. Homecare came to evaluate the patient and the nurse found his heart rate to be in the 140s so EMS was called. Initial EKG showed atrial flutter with a rate of 148. He was given a 10 mg bolus of Cardizem, patient became hypotensive in the 80s/50s. He was then switched to amiodarone. Chest x-ray showed left lower lobe pneumonia, he was started on Solu-Medrol, along with ceftriaxone and azithromycin. Repeat Covid test was negative. Troponin was elevated 0.052, 0.055. WBC 35.7, hemoglobin 9.5, potassium 5.6, BUN 62, creatinine 2.02. Pulmonology along with cardiology have been consulted, will obtain echocardiogram. Hematology was also consulted for leukocytosis. 09/27: Patient evaluated this morning, resting comfortably in bed, in no acute distress. Patient had developed a dysphasia, possible reactivation of his myasthenia gravis gravis, although patient does have a history of esophageal stricture. GI was consulted as well as speech therapy. Modified barium swallow showed normal study, no evidence for aspiration or penetration. Once his other medical conditions improve, GI plans on upper endoscopy with dilatation. Hematology consult appreciated for leukocytosis additional lab work pending. 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 UA was positive for infection, continues on ceftriaxone. IV amiodarone was transitioned to oral 400 mg 3 times a day and continue metoprolol 25 mg twice a day, remains on heparin drip. Heart rate still running between 90-110 with atrial fibrillation noted on the monitor. 09/27: Patient evaluated this morning on rounds, noted to be sitting up in bed actively throwing up, deshaun red blood noted in the emesis bucket. His anticoagulation is on hold, GI consulted who plans on proceeding with upper endoscopy tomorrow morning. Hemoglobin is stable was 9.4 today. He is still having dysphasia and having to regularly clear his throat, only tolerating fluids at this point. Levothyroxine was lowered to 100 g daily. Repeat chest x-ray showed patchy perihilar and basilar infiltrates with significant interval progression. Blood cultures show no growth to date remains, ceftriaxone changed to Zosyn to cover aspiration pneumonia. Objective - Vital Signs Vital signs: Vital Signs Temp 97.6 F 09/28/20 11:04 Pulse 113 H 09/28/20 11:04 Resp 18 09/28/20 11:04 BP 111/71 09/28/20 11:04 Pulse Ox 94 L 09/28/20 11:04 Intake & Output 09/27/20 09/28/20 09/28/20 18:59 06:59 18:59 Intake Total 825 150 Output Total 100 Balance 725 150 Weight 70.5 kg Intake: Intake, IV Titration 825 150 Amount Sodium Chloride 0.9% 1, 825 150 000 ml @ 75 mls/hr IV . [id number] [facility] Rx#:[id number] Output: Urine 100 Other: Voiding Method Urinal Urinal Urinal Diaper Diaper Diaper Incontinent Incontinent Incontinent # Voids 1 3 - Exam - Constitutional General appearance: cooperative, no acute distress - EENT Eyes: PERRLA ENT: hard of hearing, normal oropharynx - Neck Neck: no lymphadenopathy, normal ROM - Respiratory Respiratory: left: diminished, rhonchi - Cardiovascular Rhythm: irregularly irregular, tachycardia Heart sounds: normal: S1, S2 - Gastrointestinal General gastrointestinal: no distended, no organomegaly, soft, no tenderness - Neurologic Neurologic: CNII-XII intact - Musculoskeletal Musculoskeletal: generalized weakness, strength equal bilaterally, no right sided weakness, no left sided weakness - Psychiatric Psychiatric: A&O x's 3, appropriate affect, intact judgment & insight - Labs CBC & Chem 7: 09/28/20 07:05 09/25/20 14:37 Labs: Abnormal Lab Results - Last 24 Hours (Table) 09/26/20 09/27/20 09/27/20 Range/Units 14:37 17:12 20:47 WBC (3.8-10.6) k/uL RBC (4.30-5.90) m/uL Hgb (13.0-17.5) gm/dL Hct (39.0-53.0) % Neutrophils # (Manual) (1.3-7.7) k/uL Monocytes # (Manual) (0-1.0) k/uL POC Glucose (mg/dL) 150 H 121 H (75-99) mg/dL RBC Folate 1,323 H (280 - 791) ng/mL Procalcitonin (0.02-0.09) ng/mL 09/28/20 09/28/20 09/28/20 Range/Units 05:58 07:05 07:05 WBC 48.5 H (3.8-10.6) k/uL RBC 3.24 L (4.30-5.90) m/uL Hgb 9.4 L (13.0-17.5) gm/dL Hct 29.7 L (39.0-53.0) % Neutrophils # (Manual) 37.35 H (1.3-7.7) k/uL Monocytes # (Manual) 9.22 H (0-1.0) k/uL POC Glucose (mg/dL) 123 H (75-99) mg/dL RBC Folate (280 - 791) ng/mL Procalcitonin 0.25 H (0.02-0.09) ng/mL 09/28/20 Range/Units 12:25 WBC (3.8-10.6) k/uL RBC (4.30-5.90) m/uL Hgb (13.0-17.5) gm/dL Hct (39.0-53.0) % Neutrophils # (Manual) (1.3-7.7) k/uL Monocytes # (Manual) (0-1.0) k/uL POC Glucose (mg/dL) 104 H (75-99) mg/dL RBC Folate (280 - 791) ng/mL Procalcitonin (0.02-0.09) ng/mL Microbiology - Last 24 Hours (Table) 09/25/20 16:10 Blood Culture - Preliminary Blood No Growth after 48 hours Assessment and Plan Plan: 1. New onset atrial flutter. On amiodarone 400 mg 3 times a day, metoprolol 25 mg twice a day. echocardiogram completed, consult with cardiology. 2. Left-sided pneumonia. Ceftriaxone was changed to Zosyn to cover aspiration pneumonia, updraft treatments. Blood cultures obtained. Negative for Coivd x2. 3. Elevated troponin. cardiology is following 4. Leukocytosis. Hematology following, awaiting additional lab work 5. Acute on chronic kidney injury stage III. IV hydration, will continue to watch the kidney function 6. Myasthenia gravis with ocular involvement. Has been off steroids for about a year, on Mestinon 180mg BID and 60mg TID 7. Diabetes mellitus type 2. Prandin 2 mg daily 8. Hypertension. Metoprolol 25 mg twice a day and Norvasc 5 mg daily as needed for blood pressure over 140 systolic 9. Hyperlipidemia. Continue Lipitor 10 mg daily. 10. History of Graves' disease status post radiation treatment 2 years ago with hypothyroidism. levothyroxine 125 g daily lowered to 100 11.. Urinary tract infection. Continue Zosyn 12. Dysphagia. With history of esophageal stricture, swallow evaluation completed, GI on consult, plans on EGD 13. GI prophylaxis. Metoprolol 40 mg daily 14. DVT prophylaxis. heparin on hold 15. Chronic systolic heart failure.continue on metoprolol 25 mg twice a day along with Imdur 30 mg daily the above impression and plan of care have been discussed and directed by signing physician. Pattie Mcqueen nurse practitioner acting as scribe for signing physician.
--- NOTE | 2020-09-28 14:11 | P.PN ---
Subjective Progress Note Date: 09/28/20 CHIEF COMPLAINT: a flutter with RVR HISTORY OF PRESENT ILLNESS: 09/26/2020 This is a 89-year-old male with a past medical history significant for hypertension, hyperlipidemia, ischemic cardiomyopathy with previous ejection fraction 40-45%, and Graves' disease. Patient follows in the office with Dr. Monge. We have been asked to see the patient in consultation for new-onset A. fib flutter with RVR. Patient examined this morning at the bedside. Patient states he had a home health nurse at his house yesterday. He appeared short of breath and was found to be tachycardic. He was brought to the hospital for further evaluation. Patient was found to be in aflutter with RVR on admission. He does not have a history of aflutter. The patient was started on a Cardizem drip in the emergency room. However the patient became hypotensive and this was discontinued. He was subsequently started on IV amiodarone per the emergency room physician. He was also started on IV heparin. The patient denies any chest pain or pressure. He denies shortness of breath, although he does appear to have mildly labored breathing during examination. He denies dizziness or lightheadedness. Denies palpitations. Patient underwent nuclear stress test in 2013 revealing a moderate to large prior inferior wall myocardial infarction. No evidence for reversible ischemia. 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 Circumflex was nondominant with no significant disease. RCA is dominant with mild irregularities. 09/27/2020 Patient examined this morning at the bedside. He denies chest pain or pressure. Denies shortness of breath. He continues to report dysphagia. He has been started on Eliquis for anticoagulation. Echocardiogram completed reveals ejection fraction 20-25%, mild aortic regurgitation, severe mitral regurgitation, mild tricuspid regurgitation, and mild pulmonary hypertension. 09/28/2020 Patient examined this morning at the bedside. He denies chest pain or pressure. Reports mild shortness of breath. Patient states he had an episode of hemoptysis this morning. He was started on Eliquis yesterday which has been placed on hold. He is scheduled for EGD with dilation tomorrow. PHYSICAL EXAM: VITAL SIGNS: Reviewed. GENERAL: Well-developed in no acute distress. HEENT: Head is normocephalic. Pupils are equal, round. Sclerae anicteric. Mucous membranes of the mouth are moist. Neck supple. No JVD or thyromegaly LUNGS: Respirations even and unlabored. Lungs diminished. HEART: Irregular rate and rhythm. S1 and S2 heard. Systolic murmur noted. EXTREMITIES: Normal range of motion. No clubbing or cyanosis. Peripheral pulses intact. No lower extremity edema ASSESSMENT: Left sided pneumonia Leukocytosis New onset atypical aflutter with RVR Acute on chronic kidney disease Hypertension Hyperlipidemia Ischemic cardiomyopathy with previous ejection fraction 40-45%, now 20-25% Abnormal troponins, may secondary to CKD, troponins are flat and not suggestive of ACS PLAN: Eliquis currently on hold. Patient scheduled for EGD with dilation tomorrow with GI service. Continue amiodarone, Lipitor, metoprolol, hydralazine, and Imdur Further recommendations pending patient's course Nurse practitioner note has been reviewed by physician. Signing provider agrees with the documented findings, assessment, and plan of care. Objective - Vital Signs Vital signs: Vital Signs Temp 97.6 F 09/28/20 11:04 Pulse 113 H 09/28/20 11:04 Resp 18 09/28/20 11:04 BP 111/71 09/28/20 11:04 Pulse Ox 94 L 09/28/20 11:04 Intake & Output 09/27/20 09/28/20 09/28/20 18:59 06:59 18:59 Intake Total 825 150 Output Total 100 Balance 725 150 Weight 70.5 kg Intake: Intake, IV Titration 825 150 Amount Sodium Chloride 0.9% 1, 825 150 000 ml @ 75 mls/hr IV . [id number] COUNT INCLUDES THE [facility] Rx#:[id number] Output: Urine 100 Other: Voiding Method Urinal Urinal Urinal Diaper Diaper Diaper Incontinent Incontinent Incontinent # Voids 1 3 - Labs CBC & Chem 7: 09/28/20 07:05 09/25/20 14:37 Labs: Abnormal Lab Results - Last 24 Hours (Table) 09/26/20 09/27/20 09/27/20 Range/Units 14:37 17:12 20:47 WBC (3.8-10.6) k/uL RBC (4.30-5.90) m/uL Hgb (13.0-17.5) gm/dL Hct (39.0-53.0) % Neutrophils # (Manual) (1.3-7.7) k/uL Monocytes # (Manual) (0-1.0) k/uL POC Glucose (mg/dL) 150 H 121 H (75-99) mg/dL RBC Folate 1,323 H (280 - 791) ng/mL Procalcitonin (0.02-0.09) ng/mL 09/28/20 09/28/20 09/28/20 Range/Units 05:58 07:05 07:05 WBC 48.5 H (3.8-10.6) k/uL RBC 3.24 L (4.30-5.90) m/uL Hgb 9.4 L (13.0-17.5) gm/dL Hct 29.7 L (39.0-53.0) % Neutrophils # (Manual) 37.35 H (1.3-7.7) k/uL Monocytes # (Manual) 9.22 H (0-1.0) k/uL POC Glucose (mg/dL) 123 H (75-99) mg/dL RBC Folate (280 - 791) ng/mL Procalcitonin 0.25 H (0.02-0.09) ng/mL 09/28/20 Range/Units 12:25 WBC (3.8-10.6) k/uL RBC (4.30-5.90) m/uL Hgb (13.0-17.5) gm/dL Hct (39.0-53.0) % Neutrophils # (Manual) (1.3-7.7) k/uL Monocytes # (Manual) (0-1.0) k/uL POC Glucose (mg/dL) 104 H (75-99) mg/dL RBC Folate (280 - 791) ng/mL Procalcitonin (0.02-0.09) ng/mL Microbiology - Last 24 Hours (Table) 09/25/20 16:10 Blood Culture - Preliminary Blood No Growth after 48 hours
[2020-09-28] MEDS: PIPERACILLIN-TAZOBACTAM 3.375 GM in SODIUM CHLORIDE 0.9% 100 ML IVPB SCH ×2 (15:19→23:36)
[2020-09-28] MEDS: ALBUTEROL NEBULIZED 2.5 MG/3 ML INHALATION SCH ×3 (15:32→21:44)
--- NOTE | 2020-09-28 16:14 | P.PN ---
Subjective Progress Note Date: 09/28/20 Principal diagnosis: Weakness, generalized aches, dyspnea 89-year-old white male patient with past medical history positive for hypertension, hyperlipidemia, diabetes mellitus type 2, history of myasthenia gravis for which the patient used to follow with the neurologist out of [facility], history of pneumonia, myocardial infarction, history of Graves' disease status post radioactive iodine treatment, who came in to the hospital with complaints of 3 week history of increased weakness, and generalized body aches. Denied any chest pain, denied any hemoptysis, denied any shortness of breath although patient appears to be having conversational dyspnea. Not usually oxygen dependent, denies any chronic lung condition. He is an ex- smoker, quit 40 years ago, but does carry over 20 year pack smoking history. He states he has intermittent episodes of epigastric discomfort when he eats that is relieved with belching. he was found to be in atrial flutter with RVR with a left bundle branch block with a rate of 110 to 130, he was started on Cardizem drip. Chest x-ray showed findings concerning for left-sided pneumonia, and the lab work showed significant leukocytosis with a white blood cell count of 35.7, evidence of 12% bands. His COVID PCR was negative, his lactic acid was 1.9, patient had evidence of acute kidney injury with the BUN of 62 and creatinine of 2.0. Had troponin elevation of 0.052, and proBNP level was 8320. Urinalysis was negative for any sign of infection. Started on azithromycin and Rocephin for antibiotic coverage, and were consulted for pulmonary management. On 09/27/2020 patient seen in follow-up on selective care unit, he is resting in bed, he states his breathing is easier, but still gets dyspneic, is still experiencing sensation of food getting stuck in his chest and feeling of bloating, and pain after swallowing any food, patient's gives a history of esophageal narrowing that has required esophageal dilation which he did not mention yesterday. He states Dr. Cosme has seen him before for the same problem, and she saw him in consultation yesterday with the plan of esophageal dilatation on 09/29/2020 to evaluate his progressive dysphagia to solids. For now patient continues on pured diet. Lung sounds reveal diminished breath sounds, with basilar crackles, remains on 4 L of oxygen the pulse ox of 93%, hemodynamically has been stable. Blood cultures have no growth. Today's labs have been reviewed, his white blood cell count continues to increase, and up to 40.9 on today's labs, hemoglobin is 8.8, his pro-calcitonin level came back 0.35. patient remains on Rocephin for antibiotic coverage. His had nausea or vomiting. On 09/28/2020 patient seen in follow-up on selective care unit. He is down more short of breath on today's exam, little diaphoretic, but denies any fevers, he is currently on 6 L of oxygen, oxygen 92%, lung sounds revealed coarse bibasilar crackles, and the tachycardia, but no fevers, antibiotics were switched over to Zosyn, today's chest x-ray shows significant interval progression in patchy perihilar and basilar infiltrates. he is having some hemoptysis, no chest pain. White blood cell count is up to 48.5, hemoglobin is 9.4, with a follow-up will calcitonin is down slightly to 0.25. She is scheduled for EGD with esophageal dilatation tomorrow, we'll put the patient and is scheduled for bronchoscopy with BAL Objective - Vital Signs Vital signs: Vital Signs Temp 97.4 F L 09/28/20 15:11 Pulse 78 09/28/20 15:11 Resp 18 09/28/20 15:11 BP 115/70 09/28/20 15:11 Pulse Ox 92 L 09/28/20 15:11 Intake & Output 09/27/20 09/28/20 09/28/20 18:59 06:59 18:59 Intake Total 825 150 Output Total 100 Balance 725 150 Weight 70.5 kg Intake: Intake, IV Titration 825 150 Amount Sodium Chloride 0.9% 1, 825 150 000 ml @ 75 mls/hr IV . [id number] COUNTS INCLUDE 234 BEDS AT THE [facility] Rx#:[id number] Output: Urine 100 Other: Voiding Method Urinal Urinal Urinal Diaper Diaper Diaper Incontinent Incontinent Incontinent # Voids 1 3 - Exam GENERAL EXAM: Alert, very pleasant, 82-year-old white female, 6 L of oxygen with pulse ox of 92%, he has conversational dyspnea, but no acute distress HEAD: Normocephalic/atraumatic. EYES: Normal reaction of pupils, equal size. Conjunctiva pink, sclera white. NOSE: Clear with pink turbinates. THROAT: No erythema or exudates. NECK: No masses, no JVD, no thyroid enlargement, no adenopathy. CHEST: No chest wall deformity. Symmetrical expansion. LUNGS: Equal air entry with fine inspiratory crackles at bilateral bases, but no wheeze, rhonchi or dullness. CVS: Regular rate and rhythm, normal S1 and S2, no gallops, no murmurs, no rubs ABDOMEN: Soft, nontender. No hepatosplenomegaly, normal bowel sounds, no guarding or rigidity. EXTREMITIES: No clubbing, no edema, no cyanosis, 2+ pulses and upper and lower extremities. MUSCULOSKELETAL: Muscle strength and tone normal. SPINE: No scoliosis or deformity SKIN: No rashes CENTRAL NERVOUS SYSTEM: Alert and oriented -3. No focal deficits, tone is normal in all 4 extremities. PSYCHIATRIC: Alert and oriented -3. Appropriate affect. Intact judgment and insight. - Labs CBC & Chem 7: 09/28/20 07:05 09/25/20 14:37 Labs: Abnormal Lab Results - Last 24 Hours (Table) 09/26/20 09/27/20 09/27/20 Range/Units 14:37 17:12 20:47 WBC (3.8-10.6) k/uL RBC (4.30-5.90) m/uL Hgb (13.0-17.5) gm/dL Hct (39.0-53.0) % Neutrophils # (Manual) (1.3-7.7) k/uL Monocytes # (Manual) (0-1.0) k/uL POC Glucose (mg/dL) 150 H 121 H (75-99) mg/dL RBC Folate 1,323 H (280 - 791) ng/mL Procalcitonin (0.02-0.09) ng/mL 09/28/20 09/28/20 09/28/20 Range/Units 05:58 07:05 07:05 WBC 48.5 H (3.8-10.6) k/uL RBC 3.24 L (4.30-5.90) m/uL Hgb 9.4 L (13.0-17.5) gm/dL Hct 29.7 L (39.0-53.0) % Neutrophils # (Manual) 37.35 H (1.3-7.7) k/uL Monocytes # (Manual) 9.22 H (0-1.0) k/uL POC Glucose (mg/dL) 123 H (75-99) mg/dL RBC Folate (280 - 791) ng/mL Procalcitonin 0.25 H (0.02-0.09) ng/mL 09/28/20 Range/Units 12:25 WBC (3.8-10.6) k/uL RBC (4.30-5.90) m/uL Hgb (13.0-17.5) gm/dL Hct (39.0-53.0) % Neutrophils # (Manual) (1.3-7.7) k/uL Monocytes # (Manual) (0-1.0) k/uL POC Glucose (mg/dL) 104 H (75-99) mg/dL RBC Folate (280 - 791) ng/mL Procalcitonin (0.02-0.09) ng/mL Microbiology - Last 24 Hours (Table) 09/25/20 16:10 Blood Culture - Preliminary Blood No Growth after 48 hours Assessment and Plan Plan: Assessment: #1. Acute hypoxic respiratory failure related to pneumonia, community-acquired versus aspiration pneumonia. COVID 19 PCR was negative #2. Chest discomfort after eating, dysphagia, related to recurrent esophageal stricture, with previous history of esophageal dilation in June 2019. Patient is scheduled for another EGD with esophageal dilation on 09/29/2020, height barium swallow showed no evidence of aspiration or penetration, but did show pooling of the barium in the vallecula #3. Elevated troponins, rule out possibility of non-ST elevated myocardial infarction #3. Atrial flutter with RVR, new onset, on amiodarone drip and heparin drip #4. Leukocytosis #5. Acute kidney injury #6. Non-anion gap metabolic acidosis related to DIOGENES #7. History of tobacco dependence, carries [id number] smoking history in remission for last 40 years #8. Hypertension #9. Hyperlipidemia #10. Diabetes mellitus type 2 #11. History of myasthenia gravis on Mestinon #12. Hypothyroidism, history of Graves' disease status post radioactive iodine treatment #13. Previous history of myocardial infarction #14. Previous history of pneumonia #15. Previous history of ischemic cardiomyopathy with an ejection fraction of 40-45% Plan: Obtain consent for bronchoscopy with bronchoalveolar lavage tomorrow, patient had worsening chest x-ray findings, worsening hypoxemia, dyspnea, and hemoptysis. Maintain aspiration precautions. Continue to closely monitor. Patient is NPO after midnight I performed a history & physical examination of the patient and discussed their management with my nurse practitioner, Mei Cruz. I reviewed the nurse practitioner's note and agree with the documented findings and plan of care. Lung sounds are positive for fine bibasilar rales. The findings and the impression was discussed with the patient. I attest to the documentation by the nurse practitioner. Time with Patient: Less than 30
[2020-09-28 17:13] LABS: Glucose,Whole Blood 101 mg/dL (75-99)
[2020-09-28 20:16] LABS: Glucose,Whole Blood 130 mg/dL (75-99)
[2020-09-28] MEDS: GABAPENTIN 100 MG CAP PO SCH (21:00)
[2020-09-29] MEDS: ALBUTEROL NEBULIZED 2.5 MG/3 ML INHALATION SCH ×3 (00:59→07:38)
[2020-09-29] MEDS: ONDANSETRON 4 MG/2 ML VIAL IVP PRN (05:20)
[2020-09-29] MEDS: LEVOTHYROXINE 100 MCG TAB PO SCH (06:06)
[2020-09-29] MEDS: PYRIDOSTIGMINE 60 MG TAB PO SCH ×2 (06:06→20:19)
[2020-09-29] MEDS: INSULIN ASPART (NovoLOG) 100 UNIT/ML VIAL SQ SCH ×4 (06:07→21:37)
[2020-09-29] MEDS: PANTOPRAZOLE 40 MG TABLET PO SCH (06:07)
[2020-09-29] MEDS ORDERED: PROPOFOL 10 MG/ML 20 ML VIAL IV ONE (07:08)
[2020-09-29] MEDS ORDERED: SUCCINYLCHOLINE CHLORIDE 100 MG/5 ML SYR IV ONE (07:08)
[2020-09-29] MEDS ORDERED: IV FLUID CONTINUATION 1,000 ML IV ONE (07:14)
--- NOTE | 2020-09-29 07:26 | P.PCN ---
Date of Procedure: 09/29/20 Procedure(s) Performed: BRIEF HISTORY: Patient is a 89-year-old, pleasant, male scheduled for an upper endoscopy as a part of evaluation of progressive dysphagia to liquids and solids for the last few weeks duration. Patient with history of myasthenia gravis. Has prior history of distal esophageal stricture for which she underwent EGD with dilation in June 2019.. PROCEDURE PERFORMED: Esophagogastroduodenoscopy. PREOPERATIVE DIAGNOSIS: Dysphagia to solids and liquids for the last several months duration. IV sedation per anesthesia. PROCEDURE: After informed consent was obtained, the patient was brought into the endoscopy unit. IV sedation was administered by Anesthesia under continuous monitoring. Initially the Olympus GIF-140 video endoscope was inserted into the mouth. Esophagus intubated without any difficulty. It was gradually advanced into the stomach and duodenum and carefully examined. The bulb and the second part of the duodenum appeared normal. The scope at this time was withdrawn to the stomach, adequately insufflated with air, and upon careful examination, mucosa of the antrum, body, cardia and the fundus appeared normal. The scope was then withdrawn into the esophagus. The GE junction was located at 39 cm from the incisors. Moderate size hiatal hernia noted. The esophagus appeared normal. There were no erosions or ulcerations seen and the patient tolerated the procedure well. IMPRESSION: 1. Moderate size hiatal hernia. 2. No evidence of esophagitis or esophageal stricture. RECOMMENDATIONS: The findings of this examination were discussed with the patient . Likely the dysphagia is related to myasthenia gravis causing oropharyngeal dysphagia. We'll schedule the patient for modified barium swallow to evaluate further. In the meantime continue with pured diet. .
[2020-09-29] MEDS: SYMBICORT 160-4.5 MCG INHALER INHALATION SCH (07:38)
[2020-09-29 07:45] LABS: Methylmalonic Acid 0.44 umol/L (<0.40)
--- NOTE | 2020-09-29 08:24 | PCN ---
PROCEDURE NOTE PULMONARY/CRITICAL CARE PROCEDURE NOTE: PROCEDURE: Bronchoscopy, airway examination, therapeutic lavage, BAL. PREOPERATIVE DIAGNOSIS: Pneumonia and hemoptysis. POSTOPERATIVE DIAGNOSIS: Pneumonia and hemoptysis. OPERATORS: Dr. Nickerson and Mei Cruz. PROCEDURE DETAILS: The procedure took place in room #1. There was informed consent. There was universal timeout. General anesthesia was provided by Dr. Munguia and PERSONAL CARE ATTENDANT. After the patient was anesthetized and on the ventilator, the bronchoscope was inserted through the bronchoscope adapter connected to the endotracheal tube. There were some blood clots noted in the right mainstem and a bit more distal to that. I did not see any active bleeding. The blood clots were suctioned. We did a thorough inspection of the right upper lobe which was bifurcated and not trifurcated, but otherwise normal, the bifurcated right middle lobe, and all 5 segments of the right lower lobe. There was also blood noted in the right lower lobe. Again, the blood was bright red. There were some clots. On the left side, the left upper lobe and its 2 segments, the lingula and its 2 segments and the left lower lobe and its 4 segments all appeared relatively normal although there was small amounts of blood in the left side. Again, there was no distinct lesion or mass. There were some secretions that were suctioned. The bronchoscope was wedged into the right lower lobe. We did a BAL. The patient tolerated the procedure well. The fluid was sent for analysis including cytology and microbiology. The bronchoscope was withdrawn. The patient will be recovered. There was no immediate complications. MMODL / IJN: [id number] /
[2020-09-29] MEDS: SODIUM CHLORIDE 0.9% 1,000 ML IV SCH ×2 (09:20→23:10)
[2020-09-29 10:16] LABS: ABG Base Excess -14.1 mmol/L; ABG HCO3 14 mmol/L (21-25); ABG Oxygen Saturation 90.5 % (94-97); ABG PCO2 37 mmHg (35-45); ABG PO2 71 mmHg (83-108); ABG TCO2 15 mmol/L (19-24); Allen Test Performed? Yes
[2020-09-29 10:19] LABS: ABG PH 7.19 (7.35-7.45)
[2020-09-29] MEDS ORDERED: IPRATROPIUM-ALBUTEROL 3 ML NEB INHALATION PRN (10:32)
[2020-09-29 10:55] LABS: HCT 30.4 % (39.0-53.0); HGB 9.2 gm/dL (13.0-17.5); Hypochromasia Marked; MCH 28.6 pg (25.0-35.0); MCHC 30.1 g/dL (31.0-37.0); Mean Platelet Volume 8.4; Platelet Count 205 k/uL (150-450); RDW 15.5 % (11.5-15.5)
[2020-09-29 11:03] LABS: Albumin 3.4 g/dL (3.5-5.0); Calcium 9.2 mg/dL (8.4-10.2); Potassium 5.7 mmol/L (3.5-5.1); Total Bilirubin 0.7 mg/dL (0.2-1.3); Total Protein 6.8 g/dL (6.3-8.2)
[2020-09-29] MEDS: IPRATROPIUM-ALBUTEROL 3 ML NEB INHALATION SCH ×3 (11:10→20:23)
--- NOTE | 2020-09-29 11:20 | PN ---
PROGRESS NOTE PULMONARY/CRITICAL CARE PROGRESS NOTE: DATE OF SERVICE: September 29, 2020 CRITICAL CARE TIME: 34 minutes. This is an 89-year-old gentleman who was admitted back on September 25. We have been seeing him over the last couple of days. He came with acute hypoxemic respiratory failure secondary to pneumonia, thought to be community-acquired and/or aspiration. COVID-19 testing was negative. In addition, the patient was having dysphagia. Today, in a combined procedure, the patient underwent an EGD by Dr. Hdz. There was no evidence of any esophageal stricture. She thought the patient's dysphagia may relate to the patient's underlying history of myasthenia gravis. Following that procedure, myself and Mei Cruz did bronchoscopy on this patient. We did this because the patient was having hemoptysis. There was no definitive lesion noted. Most of the blood and blood clots were noted in the right lung. We did do a BAL of the right lower lobe. It may be that the hemoptysis is secondary to pneumonia. The patient unfortunately could not be extubated post procedure. He was transported back to the ICU. Hopefully, we can get him weaned and extubated. In addition, he has a history of atrial flutter, acute kidney injury, non-anion gap metabolic acidosis, chronic tobacco dependence, hypertension, hyperlipidemia, diabetes, myasthenia gravis, hypothyroidism, myocardial infarction, pneumonia, and history of ischemic cardiomyopathy with ejection fraction of about 40% to 45%. PHYSICAL EXAMINATION: VITAL SIGNS: Current vital signs include a temperature which is 97 degrees, heart rate which is 105, respiratory rate 26, blood pressure 111/91, mean 97, saturations are 92% on FiO2 of 50%. Currently, the patient is on a weaning trial with PSV 5 and CPAP of 5. The patient's weaning parameters include a negative inspiratory force of -35, rapid shallow breathing index of 81, vital capacity of 800 mL, minute volume of 9.6 L/minute, a tidal volume of 312 mL, and a respiratory rate of 26 breaths per minute. That is on FiO2 of 50%. HEENT: Examination is grossly unremarkable. He has got an orally placed endotracheal tube. NECK: Supple. Full range of motion. CARDIOVASCULAR: Examination reveals regular rhythm and rate. Heart rate 105 beats per minute. S1, S2 normal. LUNGS: Reveal diffuse coarse rhonchi. No wheezes or crackles. ABDOMEN: Soft. No bowel sounds. EXTREMITIES: Are intact. No cyanosis, clubbing, or edema. SKIN: Without rash. NEUROLOGIC: Examination was not able to be assessed as the patient seen this morning was already intubated and mechanically ventilated. LABS: Labs are reviewed. His blood gases show pO2 of 71, pCO2 of 37 pH is 7.19. The rest of the labs look okay. Procalcitonin level is 0.25. TSH 0.024 and free T4 was 2.32. His COVID testing was negative. He has got 2+ protein in the urine, moderate leukocyte esterase positivity, without any bacteria. Microbiology is currently negative. A chest x-ray was done. Unfortunately, I cannot view the x-ray. CURRENT MEDICATIONS: Current medications are reviewed. The patient is on albuterol inhalations, Cordarone, Lipitor, bismuth subsalicylate, Symbicort, Neurontin, Apresoline [place], insulin, Imdur, levothyroxine, Lopressor, Narcan, Zofran, Protonix, Zosyn, Mestinon, Prandin, Mylicon tablets, sodium bicarbonate tablets, and saline at 75 mL an hour. ASSESSMENT: 1. Postoperative day number zero, status post EGD and bronchoscopy with BAL with failure to wean from mechanical ventilation post procedure. 2. No evidence of esophageal stricture on EGD. 3. Blood in the tracheobronchial tree, without active bleeding, likely related to underlying pneumonia. 4. Routine postoperative ventilator management. 5. Acute hypoxemic respiratory failure secondary to either community-acquired or aspiration pneumonia. 6. Dysphagia, thought to be related to the patient's underlying myasthenia gravis, without evidence of esophageal stricture on EGD. 7. Elevated troponins, rule out non ST-segment elevation myocardial infarction. 8. Atrial flutter with rapid ventricular response. 9. Leukocytosis. 10.Acute kidney injury. 11.Non-anion gap metabolic acidosis. 12.History of chronic tobacco dependence. 13.Hypertension. 14.Hyperlipidemia. 15.Diabetes mellitus. 16.History of myasthenia gravis. 17.Hypothyroidism. 18.Previous history of myocardial infarction. 19.Prior history of pneumonia. 20.Ischemic cardiomyopathy with an ejection fraction of 40% to 45%. PLAN: The patient unfortunately could not be extubated after the procedure. The patient was transported to the ICU. We will attempt to wean the patient in the ICU. We will hold sedation, do a set of weaning parameters and a cuff leak test to see if he is a candidate. Additional recommendations and suggestions are forthcoming. We will review the medications. Unnecessary medications will be discontinued. If we cannot get him extubated, we will plan on using propofol for sedation. Additional recommendations and suggestions are forthcoming. Prognosis is guarded. CRITICAL CARE TIME: 34 minutes. JOSSELIN / COURTNEY: [id number] /
[2020-09-29] MEDS ORDERED: HEPARIN SODIUM,PORCINE 5,000 UNIT/ML 1 ML VIAL IV PRN (11:38)
[2020-09-29] MEDS ORDERED: HEPARIN SOD,PORK IN 0.45% NACL 25,000 UNIT in 0.45% NACL 1 250ML.BAG IV SCH (11:45)
[2020-09-29 11:49] LABS: WBC 50.8 k/uL (3.8-10.6)
[2020-09-29] MEDS: PIPERACILLIN-TAZOBACTAM 3.375 GM in SODIUM CHLORIDE 0.9% 100 ML IVPB SCH ×2 (12:11→21:37)
[2020-09-29] MEDS: METOPROLOL TARTRATE 25 MG TAB PO SCH ×2 (12:11→21:36)
[2020-09-29] MEDS: hydrALAZINE HCL 25 MG TAB PO SCH ×3 (12:11→21:35)
[2020-09-29] MEDS: ISOSORBIDE MONONITRATE ER 30 MG TAB.ER.24H PO SCH (12:11)
[2020-09-29] MEDS: AMIODARONE 200 MG TAB PO SCH ×3 (12:11→21:35)
[2020-09-29] MEDS: REPAGLINIDE 1 MG TAB PO SCH (12:12)
--- NOTE | 2020-09-29 12:13 | P.PN ---
Subjective This is an 89-year-old male patient of Dr. Good and Dr. Monge with past medical history of diabetes mellitus type 2, hypertension, hyperlipidemia, Graves' disease, status post radiation treatment, and myasthenia. Patient was seen in the office about 2 weeks ago for generalized weakness and a near syncopal episode. Patient did have a 24-hour Holter monitor which did not reveal any A. fib or flutter at that time. His also tested for Covid which was negative. Patient was also having low blood sugar readings, Prandin was held. Home care was ordered. Homecare came to evaluate the patient and the nurse found his heart rate to be in the 140s so EMS was called. Initial EKG showed atrial flutter with a rate of 148. He was given a 10 mg bolus of Cardizem, patient became hypotensive in the 80s/50s. He was then switched to amiodarone. Chest x-ray showed left lower lobe pneumonia, he was started on Solu-Medrol, along with ceftriaxone and azithromycin. Repeat Covid test was negative. Troponin was elevated 0.052, 0.055. WBC 35.7, hemoglobin 9.5, potassium 5.6, BUN 62, creatinine 2.02. Pulmonology along with cardiology have been consulted, will obtain echocardiogram. Hematology was also consulted for leukocytosis. 09/27: Patient evaluated this morning, resting comfortably in bed, in no acute distress. Patient had developed a dysphasia, possible reactivation of his myasthenia gravis gravis, although patient does have a history of esophageal stricture. GI was consulted as well as speech therapy. Modified barium swallow showed normal study, no evidence for aspiration or penetration. Once his other medical conditions improve, GI plans on upper endoscopy with dilatation. Hematology consult appreciated for leukocytosis additional lab work pending. 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 UA was positive for infection, continues on ceftriaxone. IV amiodarone was transitioned to oral 400 mg 3 times a day and continue metoprolol 25 mg twice a day, remains on heparin drip. Heart rate still running between 90-110 with atrial fibrillation noted on the monitor. 09/28: Patient evaluated this morning on rounds, noted to be sitting up in bed actively throwing up, deshaun red blood noted in the emesis bucket. His anticoagulation is on hold, GI consulted who plans on proceeding with upper endoscopy tomorrow morning. Hemoglobin is stable was 9.4 today. He is still having dysphasia and having to regularly clear his throat, only tolerating fluids at this point. Levothyroxine was lowered to 100 g daily. Repeat chest x-ray showed patchy perihilar and basilar infiltrates with significant interval progression. Blood cultures show no growth to date remains, ceftriaxone changed to Zosyn to cover aspiration pneumonia. 09/29: Patient underwent upper endoscopy along with bronchoscopy this morning for his progressive dysphagia and hemoptysis , he was found have a moderate s ized hiatal hernia but no evidence of esophagitis or esophageal stricture. Bronchoscopy revealed blood clots in the right mainstem, but no active bleeding blood was also noted in the right lower lobe, no distinct lesion or mass are noted, fluid was sent for cytology and microbiology. After the procedure patient had difficulty weaning off the vent, and was unable to be extubated, he was then transferred to the ICU. Objective - Vital Signs Vital signs: Vital Signs Temp 97 F L 09/29/20 08:12 Pulse 105 H 09/29/20 11:30 Resp 13 09/29/20 11:30 BP 105/78 09/29/20 11:30 Pulse Ox 94 L 09/29/20 11:30 Intake & Output 09/28/20 09/29/20 09/29/20 18:59 06:59 18:59 Intake Total 520 670 Output Total 0 Balance 520 670 Weight 71 kg Intake: IV 520 Intake, IV Titration 520 150 Amount Piperacillin-Tazobactam 3 100 .375 gm In Sodium Chloride 0.9% 100 ml @ 25 mls/hr IVPB Q8HR CODEY Rx# :[id number] Sodium Chloride 0.9% 1, 420 150 000 ml @ 75 mls/hr IV . [id number] CODEY Rx#:[id number] Output: Urine 0 Other: Voiding Method Urinal Urinal Diaper Diaper Incontinent Incontinent # Voids 1 3 # Bowel Movements 1 - Exam - Constitutional General appearance: cooperative, currently on vent. - EENT Eyes: PERRLA ENT: hard of hearing, normal oropharynx - Neck Neck: no lymphadenopathy, normal ROM - Respiratory Respiratory: left: diminished, diffuse rhonchi - Cardiovascular Rhythm: irregularly irregular, tachycardia Heart sounds: normal: S1, S2 - Gastrointestinal General gastrointestinal: no distended, no organomegaly, soft, no tenderness - Neurologic Neurologic: CNII-XII intact - Musculoskeletal Musculoskeletal: generalized weakness, strength equal bilaterally, no right sided weakness, no left sided weakness - Psychiatric Psychiatric: sedated - Labs CBC & Chem 7: 09/29/20 10:38 09/29/20 10:38 Labs: Abnormal Lab Results - Last 24 Hours (Table) 09/26/20 09/28/20 09/28/20 Range/Units 14:37 12:25 17:12 WBC (3.8-10.6) k/uL RBC (4.30-5.90) m/uL Hgb (13.0-17.5) gm/dL Hct (39.0-53.0) % MCHC (31.0-37.0) g/dL ABG pH (7.35-7.45) ABG pO2 (83-108) mmHg ABG HCO3 (21-25) mmol/L ABG Total CO2 (19-24) mmol/L ABG O2 Saturation (94-97) % Sodium (137-145) mmol/L Potassium (3.5-5.1) mmol/L Chloride (98-107) mmol/L Carbon Dioxide (22-30) mmol/L BUN (9-20) mg/dL Creatinine (0.66-1.25) mg/dL Glucose (74-99) mg/dL POC Glucose (mg/dL) 104 H 101 H (75-99) mg/dL AST (17-59) U/L ALT (4-49) U/L Albumin (3.5-5.0) g/dL Methylmalonic Acid 0.44 H (<0.40) umol/L RBC Folate 1,323 H (280 - 791) ng/mL 09/28/20 09/29/20 09/29/20 Range/Units 20:14 10:14 10:38 WBC 50.8 H* (3.8-10.6) k/uL RBC 3.20 L (4.30-5.90) m/uL Hgb 9.2 L (13.0-17.5) gm/dL Hct 30.4 L (39.0-53.0) % MCHC 30.1 L (31.0-37.0) g/dL ABG pH 7.19 L* (7.35-7.45) ABG pO2 71 L (83-108) mmHg ABG HCO3 14 L (21-25) mmol/L ABG Total CO2 15 L (19-24) mmol/L ABG O2 Saturation 90.5 L (94-97) % Sodium (137-145) mmol/L Potassium (3.5-5.1) mmol/L Chloride (98-107) mmol/L Carbon Dioxide (22-30) mmol/L BUN (9-20) mg/dL Creatinine (0.66-1.25) mg/dL Glucose (74-99) mg/dL POC Glucose (mg/dL) 130 H (75-99) mg/dL AST (17-59) U/L ALT (4-49) U/L Albumin (3.5-5.0) g/dL Methylmalonic Acid (<0.40) umol/L RBC Folate (280 - 791) ng/mL 09/29/20 Range/Units 10:38 WBC (3.8-10.6) k/uL RBC (4.30-5.90) m/uL Hgb (13.0-17.5) gm/dL Hct (39.0-53.0) % MCHC (31.0-37.0) g/dL ABG pH (7.35-7.45) ABG pO2 (83-108) mmHg ABG HCO3 (21-25) mmol/L ABG Total CO2 (19-24) mmol/L ABG O2 Saturation (94-97) % Sodium 147 H (137-145) mmol/L Potassium 5.7 H (3.5-5.1) mmol/L Chloride 126 H (98-107) mmol/L Carbon Dioxide 14 L (22-30) mmol/L BUN 71 H (9-20) mg/dL Creatinine 2.62 H (0.66-1.25) mg/dL Glucose 139 H (74-99) mg/dL POC Glucose (mg/dL) (75-99) mg/dL AST 112 H (17-59) U/L ALT 157 H (4-49) U/L Albumin 3.4 L (3.5-5.0) g/dL Methylmalonic Acid (<0.40) umol/L RBC Folate (280 - 791) ng/mL Microbiology - Last 24 Hours (Table) 09/25/20 16:10 Blood Culture - Preliminary Blood No Growth after 72 hours Assessment and Plan Plan: 1. New onset atrial flutter. On amiodarone 400 mg 3 times a day, metoprolol 25 mg twice a day. echocardiogram completed, consult with cardiology. 2. Left-sided pneumonia. Ceftriaxone was changed to Zosyn to cover aspiration pneumonia, updraft treatments. Blood cultures obtained. Negative for Coivd x2. 3. Elevated troponin. cardiology is following 4. Leukocytosis. Hematology following, awaiting additional lab work 5. Acute on chronic kidney injury stage III. IV hydration, will continue to watch the kidney function 6. Myasthenia gravis with ocular involvement. Has been off steroids for about a year, on Mestinon 180mg BID and 60mg TID 7. Diabetes mellitus type 2. Prandin 2 mg daily 8. Hypertension. Metoprolol 25 mg twice a day and Norvasc 5 mg daily as needed for blood pressure over 140 systolic 9. Hyperlipidemia. Continue Lipitor 10 mg daily. 10. History of Graves' disease status post radiation treatment 2 years ago with hypothyroidism. levothyroxine 125 g daily lowered to 100 11.. Urinary tract infection. Continue Zosyn 12. Dysphagia. With history of esophageal stricture, swallow evaluation completed, GI on consult, EGD showed no esophageal stricture, dysphasia most likely due to recurrence of myasthenia gravis. 13. GI prophylaxis. Metoprolol 40 mg daily 14. DVT prophylaxis. heparin on hold 15. Chronic systolic heart failure.continue on metoprolol 25 mg twice a day along with Imdur 30 mg daily 16. Hemoptysis status post bronchoscopy and failure to wean from mechanical ventilation status post procedure. Patient transferred to ICU continues on mechanical ventilation, continue to try to wean off vent. the above impression and plan of care have been discussed and directed by signing physician. Pattie Mcqueen nurse practitioner acting as scribe for signing physician.
[2020-09-29 12:28] LABS: Band Neutrophils % 1 %; Lymphocytes # (M) 2.03 k/uL (1.0-4.8); Metamyelocytes # (M) 1.02 k/uL (0); Metamyelocytes % 2 %; Monocytes # (M) 8.13 k/uL (0-1.0); Myelocytes # (M) 2.03 k/uL (0); Myelocytes % 4 %; Neutrophils % (M) 75 %; Nucleated Red Blood Cells 0 /100 WBC (0-0); Total Cells Counted 200
[2020-09-29 12:31] LABS: Poikilocytosis (M) Present
--- NOTE | 2020-09-29 13:40 | XR ---
EXAM: XR Chest, 1 View CLINICAL HISTORY: ITS.REASON XR Reason: ET tube placement TECHNIQUE: Frontal view of the chest. COMPARISON: Chest radiograph on 09/28/2020 FINDINGS: Hardware: Endotracheal tube terminates in the region of the mid thoracic trachea, approximately 3.4 cm above the emily. Lungs/pleura: Increased patchy consolidations in the mid and lower lungs. Small left greater than right pleural effusions. Heart/mediastinum: Mild enlargement of the cardiac silhouette. Soft tissues: Unremarkable. Bones: No acute fracture. Degenerative changes of the spine. Upper abdomen: Small amount of oral contrast noted within bowel in the upper abdomen. IMPRESSION: 1. Endotracheal tube terminates in the region of the mid thoracic trachea, approximately 3.4 cm above the emily. 2. Increased patchy consolidations in the mid and lower lungs. Small left greater than right pleural effusions.
--- NOTE | 2020-09-29 14:08 | PN ---
PROGRESS NOTE Zane is an 89-year-old gentleman who underwent EGD and bronchoscopy this morning. He did not have any esophagitis or stricture, had moderate-sized hiatal hernia. Following his bronchoscopy, he developed respiratory insufficiency. He could not be extubated and did not wake up, so he is admitted to ICU, but currently he seems awake and remains in atrial fibrillation with a heart rate of 110 beats per minute. Blood pressure is 111/90, respiratory rate is 18. Chest exam reveals bilateral rhonchi with diminished air entry. Heart exam reveals first and second heart sounds, irregular rhythm. Systolic murmur at the left lower sternal border. Blood gases reveal a pH of 7.1, pCO2 of 37, PO2 of 71. The patient is currently on amiodarone 400 t.i.d., Lipitor 10 daily Apresoline, insulin, Imdur, Lopressor. He was on Eliquis, which was on hold for the procedure. ASSESSMENT: Permanent atrial fibrillation with poorly controlled ventricular rate. PLAN: We will resume his medications. We will resume anticoagulant if okay with the user experience designer. I anticipate patient being extubated soon. MMODL / IJN: [id number] /
[2020-09-29 14:32] LABS: Appearance,BF Cloudy; Color,BF Red
[2020-09-29 14:33] LABS: Nucleated Cells, Body Fluid 325 /uL; RBC, Body Fluid 5225 /uL
[2020-09-29 14:35] LABS: Mononuclear WBC,Body Fluid 65 %; Polynuclear WBC,Body Fluid 35 %; Total Cells Counted,Body Fluid 100
[2020-09-29] MEDS: GABAPENTIN 100 MG CAP PO SCH (21:35)
[2020-09-29] MEDS: HYDROcodone/APAP 5-325MG 1 EACH TAB PO PRN (21:36)
[2020-09-30 05:52] LABS: Albumin 2.8 g/dL (3.5-5.0); Calcium 8.7 mg/dL (8.4-10.2); Potassium 5.3 mmol/L (3.5-5.1); Total Bilirubin 0.6 mg/dL (0.2-1.3); Total Protein 5.9 g/dL (6.3-8.2)
[2020-09-30 06:02] LABS: INR 1.5 (<1.2); Partial Thromboplastin Time 74.3 sec (22.0-30.0); Prothrombin Time 14.6 sec (9.0-12.0)
[2020-09-30 06:22] LABS: Anisocytosis Slight; HCT 28.5 % (39.0-53.0); HGB 8.5 gm/dL (13.0-17.5); Hypochromasia Marked; MCH 29.7 pg (25.0-35.0); MCHC 29.7 g/dL (31.0-37.0); MCV 99.9 fL (80.0-100.0); Macrocytosis Slight; Mean Platelet Volume 8.7; Platelet Count 159 k/uL (150-450); RBC 2.85 m/uL (4.30-5.90); WBC 46.2 k/uL (3.8-10.6)
[2020-09-30] MEDS: PANTOPRAZOLE 40 MG TABLET PO SCH (06:44)
[2020-09-30] MEDS: PYRIDOSTIGMINE 60 MG TAB PO SCH ×2 (06:44→19:05)
[2020-09-30] MEDS: LEVOTHYROXINE 100 MCG TAB PO SCH (06:44)
[2020-09-30] MEDS: INSULIN ASPART (NovoLOG) 100 UNIT/ML VIAL SQ SCH ×4 (06:45→20:37)
[2020-09-30] MEDS: HYDROcodone/APAP 5-325MG 1 EACH TAB PO PRN ×2 (06:49→20:34)
[2020-09-30 06:57] LABS: Band Neutrophils % 5 %; Lymphocytes # (M) 5.54 k/uL (1.0-4.8); Metamyelocytes # (M) 1.85 k/uL (0); Metamyelocytes % 4 %; Monocytes # (M) 5.54 k/uL (0-1.0); Myelocytes # (M) 0.46 k/uL (0); Myelocytes % 1 %; Neutrophils % (M) 68 %; Nucleated Red Blood Cells 0 /100 WBC (0-0); Total Cells Counted 200
[2020-09-30 06:58] LABS: Polychromasia Present; RBC Fragments Present
[2020-09-30 07:01] LABS: Poikilocytosis (M) Present; Toxic Vacuolation Present
--- NOTE | 2020-09-30 07:21 | XR ---
EXAM: XR Chest, 1 View CLINICAL HISTORY: Reason: pneumonia TECHNIQUE: Frontal view of the chest. COMPARISON: 09/29/20 at 0824 hrs. FINDINGS: Lungs: Slight improvement in lung inflation. Again seen are patchy airspace opacities bilaterally, not significantly changed since the prior exam. Some increased interstitial markings are seen as well. Endotracheal tube has been removed. Pleural space: No evidence of pneumothorax. Possible small bilateral pleural effusions. Heart: Cardiac silhouette is unchanged. Mediastinum: No mediastinal widening or shift. Bones/joints: No acute osseous abnormality. IMPRESSION: Interval removal of endotracheal tube. Allowing for slight improvement in lung inflation, bilateral airspace opacities are grossly stable.
[2020-09-30] MEDS: IPRATROPIUM-ALBUTEROL 3 ML NEB INHALATION SCH ×4 (07:42→19:30)
[2020-09-30] MEDS: REPAGLINIDE 1 MG TAB PO SCH (08:37)
[2020-09-30] MEDS: PIPERACILLIN-TAZOBACTAM 3.375 GM in SODIUM CHLORIDE 0.9% 100 ML IVPB SCH ×2 (08:37→20:36)
[2020-09-30] MEDS: METOPROLOL TARTRATE 25 MG TAB PO SCH ×2 (08:37→20:36)
[2020-09-30] MEDS: AMIODARONE 200 MG TAB PO SCH (08:37)
[2020-09-30] MEDS: ISOSORBIDE MONONITRATE ER 30 MG TAB.ER.24H PO SCH (08:38)
[2020-09-30] MEDS: hydrALAZINE HCL 25 MG TAB PO SCH ×3 (08:38→22:40)
--- NOTE | 2020-09-30 10:04 | P.PN ---
Subjective Progress Note Date: 09/30/20 Principal diagnosis: 89-year-old white male patient with past medical history positive for hypertension, hyperlipidemia, diabetes mellitus type 2, history of myasthenia gravis for which the patient used to follow with the neurologist out of [facility], history of pneumonia, myocardial infarction, history of Graves' disease status post radioactive iodine treatment, who came in to the hospital with complaints of 3 week history of increased weakness, and generalized body aches. Denied any chest pain, denied any hemoptysis, denied any shortness of breath although patient appears to be having conversational dyspnea. Not usually oxygen dependent, denies any chronic lung condition. He is an ex- smoker, quit 40 years ago, but does carry over 20 year pack smoking history. He states he has intermittent episodes of epigastric discomfort when he eats that is relieved with belching. he was found to be in atrial flutter with RVR with a left bundle branch block with a rate of 110 to 130, he was started on Cardizem drip. Chest x-ray showed findings concerning for left-sided pneumonia. The patient is seen today 09/30/2020 in follow-up in the intensive care unit. He had subsequently undergone EGD and bronchoscopy with BAL yesterday. He is currently still maintaining O2 saturations in the mid 90s on 8 L high flow nasal cannula. He's been afebrile. Hemodynamically stable. He has 0.9 normal saline at 75 ML's per hour. Heparin drip. Bronchial wash cultures are pending. EGD revealed moderate sized hiatal hernia. No evidence of esophageal tightness or e sophageal stricture. Dysphagia may be related to his myasthenia gravis. White count 46.2. Hemoglobin 8.5. Sodium 144. Potassium 5.3. Chloride 129. Bicarbonate 13. Creatinine 2.52. AST 81. ALT 136. He is continued on DuoNeb inhalations, Zosyn. Anticoagulated with Eliquis. Objective - Vital Signs Vital signs: Vital Signs Temp 97.7 F 09/30/20 04:00 Pulse 100 09/30/20 07:54 Resp 22 09/30/20 07:00 BP 99/72 09/30/20 07:00 Pulse Ox 96 09/30/20 07:43 Intake & Output 09/29/20 09/30/20 09/30/20 18:59 06:59 18:59 Intake Total 1315 961.344 159.608 Output Total 1 487 40 Balance 1314 474.344 119.608 Weight 71 kg 76.8 kg Intake: IV 520 900 75 Sodium Chloride 0.9% 1, 900 75 000 ml @ 75 mls/hr IV . [id number] CODEY Rx#:[id number] Intake, IV Titration 675 61.344 84.608 Amount Heparin Sod,Pork in 0.45% 61.344 84.608 NaCl 25,000 unit In 0.45 % NaCl 1 250ml.bag @ 12 UNITS/KG/HR 8.52 mls/hr IV .Q24H CODEY Rx#: [id number] Sodium Chloride 0.9% 1, 675 000 ml @ 75 mls/hr IV . [id number] CODEY Rx#:[id number] Oral 120 Output: Urine 1 487 40 Other: Voiding Method Urinal Indwelling Catheter Diaper Incontinent # Bowel Movements 1 - Exam GENERAL EXAM: Alert, very pleasant, 82-year-old male patient, 8 L of oxygen, he has conversational dyspnea, but no acute distress HEAD: Normocephalic/atraumatic. EYES: Normal reaction of pupils, equal size. Conjunctiva pink, sclera white. NOSE: Clear with pink turbinates. THROAT: No erythema or exudates. NECK: No masses, no JVD, no thyroid enlargement, no adenopathy. CHEST: No chest wall deformity. Symmetrical expansion. LUNGS: Equal air entry with fine inspiratory crackles at bilateral bases, but no wheeze, rhonchi or dullness. CVS: Regular rate and rhythm, normal S1 and S2, no gallops, no murmurs, no rubs ABDOMEN: Soft, nontender. No hepatosplenomegaly, normal bowel sounds, no guarding or rigidity. EXTREMITIES: No clubbing, no edema, no cyanosis, 2+ pulses and upper and lower extremities. MUSCULOSKELETAL: Muscle strength and tone normal. SPINE: No scoliosis or deformity SKIN: No rashes CENTRAL NERVOUS SYSTEM: No focal deficits, tone is normal in all 4 extremities. PSYCHIATRIC: Alert and oriented -3. Appropriate affect. Intact judgment and insight. - Labs CBC & Chem 7: 09/30/20 05:20 09/30/20 05:20 Labs: Abnormal Lab Results - Last 24 Hours (Table) 09/29/20 09/29/20 09/29/20 Range/Units 10:14 10:38 10:38 WBC 50.8 H* (3.8-10.6) k/uL RBC 3.20 L (4.30-5.90) m/uL Hgb 9.2 L (13.0-17.5) gm/dL Hct 30.4 L (39.0-53.0) % MCHC 30.1 L (31.0-37.0) g/dL RDW (11.5-15.5) % Neutrophils # (Manual) 38.60 H (1.3-7.7) k/uL Lymphocytes # (Manual) (1.0-4.8) k/uL Monocytes # (Manual) 8.13 H (0-1.0) k/uL Metamyelocytes # (Man) 1.02 H (0) k/uL Myelocytes # (Manual) 2.03 H (0) k/uL PT (9.0-12.0) sec INR (<1.2) APTT (22.0-30.0) sec ABG pH 7.19 L* (7.35-7.45) ABG pO2 71 L (83-108) mmHg ABG HCO3 14 L (21-25) mmol/L ABG Total CO2 15 L (19-24) mmol/L ABG O2 Saturation 90.5 L (94-97) % Sodium 147 H (137-145) mmol/L Potassium 5.7 H (3.5-5.1) mmol/L Chloride 126 H (98-107) mmol/L Carbon Dioxide 14 L (22-30) mmol/L BUN 71 H (9-20) mg/dL Creatinine 2.62 H (0.66-1.25) mg/dL Glucose 139 H (74-99) mg/dL AST 112 H (17-59) U/L ALT 157 H (4-49) U/L Total Protein (6.3-8.2) g/dL Albumin 3.4 L (3.5-5.0) g/dL 09/29/20 09/30/20 09/30/20 Range/Units 18:00 00:46 05:20 WBC 46.2 H (3.8-10.6) k/uL RBC 2.85 L (4.30-5.90) m/uL Hgb 8.5 L (13.0-17.5) gm/dL Hct 28.5 L (39.0-53.0) % MCHC 29.7 L (31.0-37.0) g/dL RDW 16.0 H (11.5-15.5) % Neutrophils # (Manual) 33.70 H (1.3-7.7) k/uL Lymphocytes # (Manual) 5.54 H (1.0-4.8) k/uL Monocytes # (Manual) 5.54 H (0-1.0) k/uL Metamyelocytes # (Man) 1.85 H (0) k/uL Myelocytes # (Manual) 0.46 H (0) k/uL PT (9.0-12.0) sec INR (<1.2) APTT 78.8 H 61.0 H (22.0-30.0) sec ABG pH (7.35-7.45) ABG pO2 (83-108) mmHg ABG HCO3 (21-25) mmol/L ABG Total CO2 (19-24) mmol/L ABG O2 Saturation (94-97) % Sodium (137-145) mmol/L Potassium (3.5-5.1) mmol/L Chloride (98-107) mmol/L Carbon Dioxide (22-30) mmol/L BUN (9-20) mg/dL Creatinine (0.66-1.25) mg/dL Glucose (74-99) mg/dL AST (17-59) U/L ALT (4-49) U/L Total Protein (6.3-8.2) g/dL Albumin (3.5-5.0) g/dL 09/30/20 09/30/20 Range/Units 05:20 05:20 WBC (3.8-10.6) k/uL RBC (4.30-5.90) m/uL Hgb (13.0-17.5) gm/dL Hct (39.0-53.0) % MCHC (31.0-37.0) g/dL RDW (11.5-15.5) % Neutrophils # (Manual) (1.3-7.7) k/uL Lymphocytes # (Manual) (1.0-4.8) k/uL Monocytes # (Manual) (0-1.0) k/uL Metamyelocytes # (Man) (0) k/uL Myelocytes # (Manual) (0) k/uL PT 14.6 H (9.0-12.0) sec INR 1.5 H (<1.2) APTT 74.3 H (22.0-30.0) sec ABG pH (7.35-7.45) ABG pO2 (83-108) mmHg ABG HCO3 (21-25) mmol/L ABG Total CO2 (19-24) mmol/L ABG O2 Saturation (94-97) % Sodium (137-145) mmol/L Potassium 5.3 H (3.5-5.1) mmol/L Chloride 129 H (98-107) mmol/L Carbon Dioxide 13 L (22-30) mmol/L BUN 72 H (9-20) mg/dL Creatinine 2.52 H (0.66-1.25) mg/dL Glucose (74-99) mg/dL AST 81 H (17-59) U/L ALT 136 H (4-49) U/L Total Protein 5.9 L (6.3-8.2) g/dL Albumin 2.8 L (3.5-5.0) g/dL Microbiology - Last 24 Hours (Table) 09/29/20 07:15 Gram Stain - Preliminary Bronchial Washings - Random Bronchial Washings Culture - Preliminary 09/29/20 07:15 Acid Fast Bacilli Smear - Final Bronchial Washings - Random Acid Fast Bacilli Culture - Preliminary 09/25/20 16:10 Blood Culture - Preliminary Blood No Growth after 96 hours 09/29/20 07:15 Fungal Culture - Preliminary Bronchial Washings - Random Assessment and Plan Assessment: 1 Acute hypoxic respiratory failure related to pneumonia, community-acquired versus aspiration pneumonia. COVID 19 PCR was negative. EGD ruled out esophageal stricture. Bronchoscopy with BAL performed 09/29/2020 due to he moptysis, no evidence of active bleeding or endobronchial lesions or tumors. 2 Chest discomfort after eating, dysphagia, related to recurrent esophageal stricture, with previous history of esophageal dilation in June 2019. 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 Nickerson We will continue the current treatment plan for now Await final bronchial wash cultures Titrate down the FiO2 as tolerated EGD revealed no esophageal stricture We will continue to follow I, the cosigning physician, performed a history & physical examination of the patient. Lungs sounds with crackles in the posterior bases. Maintaining good O2 saturations in the 90s on 8 L high flow nasal cannula. I discussed the assessment and plan of care with my nurse practitioner, Aurora Remy. I attest to the above note as dictated by her.
--- NOTE | 2020-09-30 10:17 | PN ---
PROGRESS NOTE HISTORY: Zane is an 89-year-old gentleman who is in the ICU following an EGD and bronchoscopy yesterday and difficulty in extubating him in the postoperative phase. This morning, he is in the ICU as a telemetry overflow. Doing well. Appears somewhat short of breath at rest. Remains in atrial fibrillation with a heart rate in the 100s and he is on IV heparin. He passed his swallow test yesterday and will resume the Eliquis 2.5 b.i.d. EXAM: Heart rate is 100 beats per minute. Blood pressure is 99/70, respiratory rate is 18. Chest exam reveals diminished air entry at the bases. Heart exam reveals first and second heart sounds, irregular rhythm, systolic murmur at the apex. Abdomen is soft. Exam of extremities did not reveal any edema. Peripheral pulses are felt. ASSESSMENT: Permanent atrial fibrillation with poorly controlled ventricular rate. PLAN: I am going to continue the beta brian. Continue the Eliquis. Transfer the patient out of ICU. MMODL / IJN: [id number] /
--- NOTE | 2020-09-30 11:34 | PN ---
PROGRESS NOTE DATE OF SERVICE: September 30, 2020 Patient is an 89-year-old pleasant white male admitted to the hospital with shortness of breath and difficulty eating. He underwent an upper endoscopy yesterday that showed normal-appearing esophagus with no evidence of esophageal stricture and subsequently also had a bronchoscopy done with BAL. Following that he was not able to be extubated and hence patient is currently in ICU being watched closely. The patient has severe leukocytosis secondary to pneumonia and presently on broad-spectrum antibiotics. Continues to complain of dysphagia. He was evaluated with a modified barium swallow and was noted to have a pooling of food in the piriform sinuses and vallecula and pureed diet was recommended by the speech pathologist. The patient also has history of longstanding history of myasthenia gravis. PHYSICAL EXAMINATION: He appears comfortable in no apparent distress. VITAL SIGNS: Stable. Blood pressure is 110/72, pulse 82, temperature 98.5. HEENT examination unremarkable. Conjunctive pink. Sclerae anicteric. Oral cavity no lesions. Neck no JVD or lymph node enlargement. CHEST: Decreased breath sounds bilaterally. HEART: Regular rate and rhythm. ABDOMEN: Soft. Bowel sounds are positive. No organomegaly. EXTREMITIES no pedal edema. NEURO: He is alert and oriented x3. No focal deficits. LABS: WBC 46.2, hemoglobin 8.5, platelets normal. INR 1.5. BUN 72, creatinine 2.52. IMPRESSION: 1. Severe leukocytosis and worsening shortness of breath all secondary to pneumonia presently on broad-spectrum antibiotics and pulmonary following the patient closely. Covid 19 is negative. 2. Progressive dysphagia to solids and liquids for the last several months duration. EGD done yesterday did not show any evidence of esophageal stricture. Most likely dealing with myasthenia gravis causing severe oropharyngeal dysphagia. As per the swallow evaluation, he was doing well with pureed diet. 3. Atrial fibrillation with RVR. Presently on IV heparin drip. 4. Acute kidney injury. 5. History of myasthenia gravis on Mestinon. 6. History of hypertension and hyperlipidemia. RECOMMENDATIONS: 1. Continue with broad-spectrum antibiotics. 2. Start on a pureed diet again and if he is not able to tolerate, we can consider putting NG tube for feeding purposes and I had a brief discussion with the patient regarding possibility of an EGD with a PEG tube placement once his overall condition improves for long-term nutritional requirements. The patient wants to think about it. 3. Monitor labs closely. 4. We will follow with you. Thank you for this consultation. SCOTL / IJN: [id number] /
[2020-09-30] MEDS: SODIUM CHLORIDE 0.9% 1,000 ML IV SCH (16:12)
[2020-09-30] MEDS: methylPREDNISolone SOD SUCCI 125 MG/2 ML VIAL IV SCH ×2 (16:12→23:47)
[2020-09-30] MEDS: BUDESONIDE 0.25 MG/2 ML NEBU INHALATION SCH (19:30)
[2020-09-30] MEDS: GABAPENTIN 100 MG CAP PO SCH (20:34)
[2020-09-30] MEDS ORDERED: AMIODARONE 200 MG TAB PO SCH (21:00)
[2020-09-30] MEDS ORDERED: APIXABAN 2.5 MG TABLET PO SCH (21:00)
[2020-10-01 04:39] LABS: Anisocytosis Slight; HCT 29.2 % (39.0-53.0); HGB 8.6 gm/dL (13.0-17.5); Hypochromasia Marked; MCH 28.5 pg (25.0-35.0); MCHC 29.6 g/dL (31.0-37.0); MCV 96.2 fL (80.0-100.0); Macrocytosis Slight; Mean Platelet Volume 8.9; Platelet Count 154 k/uL (150-450); RBC 3.03 m/uL (4.30-5.90); RDW 16.5 % (11.5-15.5); WBC 43.4 k/uL (3.8-10.6)
[2020-10-01 04:49] LABS: Calcium 9.1 mg/dL (8.4-10.2); Potassium 5.6 mmol/L (3.5-5.1)
[2020-10-01 04:52] LABS: INR 1.5 (<1.2); Prothrombin Time 14.4 sec (9.0-12.0)
[2020-10-01 05:07] LABS: Band Neutrophils % 1 %; Lymphocytes # (M) 0.43 k/uL (1.0-4.8); Metamyelocytes # (M) 0.43 k/uL (0); Metamyelocytes % 1 %; Monocytes # (M) 1.74 k/uL (0-1.0); Myelocytes % 6 %; Neutrophils % (M) 87 %; Nucleated Red Blood Cells 0 /100 WBC (0-0); Total Cells Counted 200
[2020-10-01 05:08] LABS: Anisocytosis (M) Present; Poikilocytosis (M) Present; Polychromasia Present
--- NOTE | 2020-10-01 06:14 | XR ---
EXAM: XR Chest, 1 View CLINICAL HISTORY: Reason: pneumonia TECHNIQUE: Frontal view of the chest. COMPARISON: 09/30/20 at 0549 hrs. FINDINGS: Lungs: Again seen are patchy regions of airspace consolidation in both lungs, worsened since the prior exam performed yesterday morning and most consistent with a multifocal pneumonia. Increased atelectasis in the right lung base. Pleural space: Unremarkable. No pneumothorax. Heart: Cardiac silhouette is partially obscured by airspace consolidation, though is likely within normal limits. Mediastinum: No mediastinal widening or shift. Bones/joints: Unremarkable. IMPRESSION: Interval worsening of multifocal pneumonia, with patchy airspace consolidation seen in both lungs.
[2020-10-01] MEDS: PANTOPRAZOLE 40 MG TABLET PO SCH (06:45)
[2020-10-01] MEDS: PYRIDOSTIGMINE 60 MG TAB PO SCH ×2 (06:45→15:47)
[2020-10-01] MEDS: SODIUM CHLORIDE 0.9% 1,000 ML IV SCH (06:45)
[2020-10-01] MEDS: methylPREDNISolone SOD SUCCI 125 MG/2 ML VIAL IV SCH ×3 (06:46→17:52)
[2020-10-01] MEDS: INSULIN ASPART (NovoLOG) 100 UNIT/ML VIAL SQ SCH ×4 (06:46→20:49)
[2020-10-01] MEDS: LEVOTHYROXINE 100 MCG TAB PO SCH (06:49)
[2020-10-01] MEDS: HYDROcodone/APAP 5-325MG 1 EACH TAB PO PRN (06:55)
[2020-10-01] MEDS: IPRATROPIUM-ALBUTEROL 3 ML NEB INHALATION SCH ×4 (07:45→20:45)
[2020-10-01] MEDS: BUDESONIDE 0.25 MG/2 ML NEBU INHALATION SCH (07:45)
[2020-10-01] MEDS ORDERED: HEPARIN SODIUM,PORCINE 5,000 UNIT/ML 1 ML VIAL IV PRN (09:13)
--- NOTE | 2020-10-01 09:35 | PN ---
PROGRESS NOTE DATE OF SERVICE: October 01, 2020. REQUESTING PHYSICIAN: Dr. Good The patient is an 89-year-old white male who remains in the intensive care unit. Continues to complain of remain very short of breath, was started on BiPAP. Complains of worsening symptoms, feeling weak and tired. He was started on a pureed diet yesterday, not having too much oral intake because of ongoing respiratory issues. He had a chest x-ray done this morning that showed interval worsening of multi focal pneumonia with patchy airspace consolidation bilaterally. PHYSICAL EXAMINATION: Vital signs show a blood pressure of 97/92, pulse 87, temperature 98. HEENT examination unremarkable. Conjunctivae pink. Sclerae anicteric. Oral cavity no lesions. CHEST: Decreased breath sounds bilaterally. HEART: Regular rate and rhythm. ABDOMEN: Soft. Bowel sounds are positive. No organomegaly. Extremities: No pedal edema. Neuro he is awake and alert. LABS: From today WBC is 43.4, hemoglobin 8.6, platelets 154,000. INR 1.5. BUN and creatinine are 72 and 2.82 respectively. Potassium is 5.6. IMPRESSION: 1. Acute respiratory failure secondary to severe pneumonia, presently on broad- spectrum antibiotic with Zosyn. He was started on BiPAP yesterday. 2. Dysphagia to liquids and solids for the last several months duration. EGD done 2 days ago did not show any evidence of esophageal stricture. Most likely dealing with oropharyngeal dysphagia related to myasthenia gravis. Presently on pureed diet, but oral intake is significantly low. 3. Atrial fibrillation on Eliquis. 4. Acute kidney injury. 5. History of myasthenia gravis on Mestinon. RECOMMENDATIONS: At this time, continue with a pureed diet. Continue with broad-spectrum antibiotics. Continue with symptomatic and supportive care. If the patient has difficulty we may consider placing an NG tube and start on tube feeds. We will follow with you closely. Thank you for this consultation. MMODL / IJN: [id number] /
[2020-10-01] MEDS: REPAGLINIDE 1 MG TAB PO SCH (10:30)
[2020-10-01] MEDS: METOPROLOL TARTRATE 5 MG/5 ML VIAL IVP SCH ×2 (10:44→17:52)
[2020-10-01] MEDS: PIPERACILLIN-TAZOBACTAM 3.375 GM in SODIUM CHLORIDE 0.9% 100 ML IVPB SCH ×2 (10:44→20:49)
[2020-10-01] MEDS: HEPARIN SOD,PORK IN 0.45% NACL 25,000 UNIT in 0.45% NACL 1 250ML.BAG IV SCH (10:45)
[2020-10-01] MEDS ORDERED: DEXTROSE 5% IN WATER 1,000 ML IV ONE (10:53)
--- NOTE | 2020-10-01 11:26 | PN ---
PROGRESS NOTE PULMONARY/CRITICAL CARE PROGRESS NOTE: DATE OF SERVICE: 10/01/2020 Critical care time greater than 30 minutes. INTERVAL HISTORY: This is an 89-year-old male who was admitted back on September 25. His admission diagnosis included acute hypoxemic respiratory failure secondary to pneumonia. The pneumonia was thought to be related to aspiration. His COVID-19 testing was negative. The patient had an EGD which was done by Dr. Hdz. There was no esophageal stricture and she attributed the dysphagia probably to his myasthenia gravis. In addition, we did bronchoscopy and BAL on the . There was blood in the airway. No active bleeding. Likely related to underlying pneumonia. I did have a long conversation with the daughter today. The daughter states that the patient and his had do not resuscitate paperwork. In addition, she agreed that the patient would not be a good candidate for intubation and mechanical ventilation and also agreed that the patient would not be a candidate for placement of a feeding tube. The patient is having chronic aspiration secondary to his esophageal dysfunction and his myasthenia. In addition, the patient had the possibility of non ST-segment elevation myocardial infarction, atrial flutter with RVR, acute kidney injury, non- anion gap metabolic acidosis, history of chronic tobacco dependence, hypertension, hyperlipidemia, diabetes, myasthenia gravis, hypothyroidism, previous history of myocardial infarction, pneumonia, and ischemic cardiomyopathy with ejection fraction of 40% to 45%. PHYSICAL EXAMINATION: VITAL SIGNS: Current vital signs are reviewed. Temperature 97.3, heart rate 83, respiratory rate 20, blood pressure 106/75, mean 85, saturations are 97%. Patient appears in no acute distress. HEENT: Examination is grossly unremarkable. The patient is wearing BiPAP currently. His BiPAP settings are 12/5 and FiO2 of 100%, which probably could be taken down to 90%. In addition, the patient is receiving saline at 75 mL an hour. HEENT: Examination is grossly unremarkable otherwise. NECK: Supple. No adenopathy or thyromegaly. Neck veins are flat. CARDIOVASCULAR: Examination reveals regular rhythm rate. Heart rate 83 beats per minute. S1, S2 normal. Heart sounds are distant. LUNGS: Reveal coarse bilateral rhonchi. No wheezes or crackles. ABDOMEN: Soft. EXTREMITIES: Intact. Minimal edema. No cyanosis or clubbing. SKIN: Without rash. NEUROLOGIC: Examination is brief but nonfocal. LABS: Reviewed. White count 43.4, hemoglobin 8.6, hematocrit 29.2, platelet count 154,000. PT, INR were 14.4 and 1.5. PTT is 31.1. Sodium 144, potassium 5.6, chloride 126, CO2 12, anion gap is 6. BUN and creatinine were 72 and 2.82. Albumin 2.8. Microbiology including all bronch washes thus far are negative or pending. IMAGING: A chest x-ray today, the report that is, suggests worsening of the multifocal pneumonia with patchy airspace consolidation in both lungs. CURRENT MEDICATIONS: Reviewed. The patient is on Pulmicort, gabapentin, IV heparin, [place], NovoLog insulin, DuoNeb, levothyroxine, Solu-Medrol, metoprolol, Narcan, Zofran, Protonix, Zosyn, Mestinon, Prandin, sodium bicarbonate tablets, and saline at 75 mL an hour. ASSESSMENT: 1. Acute hypoxemic respiratory failure, secondary to aspiration pneumonia. 2. Status post EGD, without evidence of esophageal stricture. 3. Status post bronchoscopy on September 29 for hemoptysis, no evidence of active bleeding, likely related to underlying pneumonia. 4. Chronic dysphagia and aspiration secondary to myasthenia gravis. 5. Rule out non ST-segment elevation myocardial infarction. 6. Atrial flutter with RVR. 7. Acute kidney injury. 8. Non-anion gap metabolic acidosis. 9. History of tobacco dependence. 10.Hypertension. 11.Hyperlipidemia. 12.Diabetes. 13.Myasthenia gravis. 14.Hypothyroidism, with a prior history of Graves disease, status post radioactive iodine treatment. 15.Previous history of myocardial infarction. 16.Prior history of pneumonia. 17.Ischemic cardiomyopathy with ejection fraction of 40% to 45%. PLAN: I did have a conversation with the daughter about code status. Apparently there is paperwork for both he and his for do not resuscitate. She agreed that the patient would not be a good candidate for intubation and mechanical ventilation or feeding tube. Additional recommendations and suggestions are forthcoming. Prognosis is guarded. We will continue to follow. We will make some changes with the medications. Again prognosis is poor. Critical care time greater than 30 minutes. MMODL / IJN: [id number] /
--- NOTE | 2020-10-01 12:10 | P.PN ---
Subjective Progress Note Date: 09/30/20 Principal diagnosis: A. fib/A flutter, respiratory failure, aspiration pneumonia, hemoptysis, dysphagia, myasthenia gravis, sepsis This is an 89-year-old male patient of Dr. Good and Dr. Monge with past medical history of diabetes mellitus type 2, hypertension, hyperlipidemia, Graves' disease, status post radiation treatment, and myasthenia. Patient was seen in the office about 2 weeks ago for generalized weakness and a near syncopal episode. Patient did have a 24-hour Holter monitor which did not reveal any A. fib or flutter at that time. His also tested for Covid which was negative. Patient was also having low blood sugar readings, Prandin was held. Home care was ordered. Homecare came to evaluate the patient and the nurse found his heart rate to be in the 140s so EMS was called. Initial EKG showed atrial flutter with a rate of 148. He was given a 10 mg bolus of Cardizem, patient became hypotensive in the 80s/50s. He was then switched to amiodarone. Chest x-ray showed left lower lobe pneumonia, he was started on Solu-Medrol, along with ceftriaxone and azithromycin. Repeat Covid test was negative. Troponin was elevated 0.052, 0.055. WBC 35.7, hemoglobin 9.5, potassium 5.6, BUN 62, creatinine 2.02. Pulmonology along with cardiology have been consulted, will obtain echocardiogram. Hematology was also consulted for leukocytosis. 09/27: Patient evaluated this morning, resting comfortably in bed, in no acute distress. Patient had developed a dysphasia, possible reactivation of his myasthenia gravis gravis, although patient does have a history of esophageal stricture. GI was consulted as well as speech therapy. Modified barium swallow showed normal study, no evidence for aspiration or penetration. Once his other medical conditions improve, GI plans on upper endoscopy with dilatation. Hematology consult appreciated for leukocytosis additional lab work pending. 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 UA was positive for infection, continues on ceftriaxone. IV amiodarone was transitioned to oral 400 mg 3 times a day and continue metoprolol 25 mg twice a day, remains on heparin drip. Heart rate still running between 90-110 with atrial fibrillation noted on the monitor. 09/28: Patient evaluated this morning on rounds, noted to be sitting up in bed actively throwing up, deshaun red blood noted in the emesis bucket. His anticoagulation is on hold, GI consulted who plans on proceeding with upper endoscopy tomorrow morning. Hemoglobin is stable was 9.4 today. He is still having dysphasia and having to regularly clear his throat, only tolerating fluids at this point. Levothyroxine was lowered to 100 g daily. Repeat chest x-ray showed patchy perihilar and basilar infiltrates with significant interval progression. Blood cultures show no growth to date remains, ceftriaxone changed to Zosyn to cover aspiration pneumonia. 09/29: Patient underwent upper endoscopy along with bronchoscopy this morning for his progressive dysphagia and hemoptysis , he was found have a moderate sized hiatal hernia but no evidence of esophagitis or esophageal stricture. Bronchoscopy revealed blood clots in the right mainstem, but no active bleeding blood was also noted in the right lower lobe, no distinct lesion or mass are noted, fluid was sent for cytology and microbiology. After the procedure patient had difficulty weaning off the vent, and was unable to be extubated, he was then transferred to the ICU. 09/30: Patient ended up going for EGD and dilation along with bronchoscopy ended up in the ICU for worsening respiratory failure and possible aspiration, continue current management still been treated for aspiration pneumonia as well. Multiple clot found on the right mainstem along with the bronchial tube also patient had large Haldol hernia along with esophagitis being treated with PPI. Patient is not doing well his oxygenation has been down A. fib slightly better control but his prognosis still very guarded. Objective - Vital Signs Vital signs: Vital Signs Temp 97.7 F 09/30/20 04:00 Pulse 99 09/30/20 16:32 Resp 22 09/30/20 07:00 BP 99/72 09/30/20 07:00 Pulse Ox 96 09/30/20 07:43 Intake & Output 09/29/20 09/30/20 09/30/20 18:59 06:59 18:59 Intake Total 1315 961.344 159.608 Output Total 1 487 40 Balance 1314 474.344 119.608 Weight 71 kg 76.8 kg Intake: IV 520 900 75 Sodium Chloride 0.9% 1, 900 75 000 ml @ 75 mls/hr IV . [id number] [facility] Rx#:[id number] Intake, IV Titration 675 61.344 84.608 Amount Heparin Sod,Pork in 0.45% 61.344 84.608 NaCl 25,000 unit In 0.45 % NaCl 1 250ml.bag @ 12 UNITS/KG/HR 8.52 mls/hr IV .Q24H [facility]Y Rx#: [id number] Sodium Chloride 0.9% 1, 675 000 ml @ 75 mls/hr IV . [id number] [facility]Y Rx#:[id number] Oral 120 Output: Urine 1 487 40 Other: Voiding Method Urinal Indwelling Catheter Diaper Incontinent # Bowel Movements 1 - Exam ROS: CONSTITUTIONAL: Well-developed no acute respiratory distress. Still have any mask on EYES: No icterus sclerae, no conjunctivitis. EARS, NOSE, MOUTH, THROAT, and FACE: No sore throat, lymphadenopathy, carotid bruits or deformity. RESPIRATORY: Difficult shortness of breath and dyspnea with mild wheezes. CARDIOVASCULAR: Still have tachycardia no sign of angina positive PND and orthopnea GASTROINTESTINAL: Post EGD without patient still having mild dysphagia GENITOURINARY: Negative for Hematuria or UTI, no kidney stones. Mild BPH symptoms INTEGUMENT/BREAST: Negative for any muscular injury with mild osteoarthritis.. HEMATOLOGIC/LYMPHATIC: Negative for bleed or purpura. MUSCULOSKELTAL: Negative for Myalgia or arthralgia. NEURLOGICAL: Mild confusion, history of myasthenia gravis, history of Graves' disease and severe Ophtalmopathy BEHAVIORAL/PSYCH: Negative. ENDOCRINE: Negative. - Exam GENERAL EXAM: Alert, very pleasant, 82-year-old male patient, 8 L of oxygen, he has conversational dyspnea, but no acute distress HEAD: Normocephalic/atraumatic. EYES: Normal reaction of pupils, equal size. Conjunctiva pink, sclera white. NOSE: Clear with pink turbinates. THROAT: No erythema or exudates. NECK: No masses, no JVD, no thyroid enlargement, no adenopathy. CHEST: No chest wall deformity. Symmetrical expansion. LUNGS: Equal air entry with fine inspiratory crackles at bilateral bases, but no wheeze, rhonchi or dullness. CVS: Regular rate and rhythm, normal S1 and S2, no gallops, no murmurs, no rubs ABDOMEN: Soft, nontender. No hepatosplenomegaly, normal bowel sounds, no guarding or rigidity. EXTREMITIES: No clubbing, no edema, no cyanosis, 2+ pulses and upper and lower extremities. MUSCULOSKELETAL: Muscle strength and tone normal. SPINE: No scoliosis or deformity SKIN: No rashes CENTRAL NERVOUS SYSTEM: No focal deficits, tone is normal in all 4 extremities. PSYCHIATRIC: Alert and oriented -3. Appropriate affect. Intact judgment and insight. - Labs CBC & Chem 7: 10/01/20 03:59 10/01/20 03:59 Labs: Abnormal Lab Results - Last 24 Hours (Table) 09/29/20 09/30/20 09/30/20 Range/Units 18:00 00:46 05:20 WBC 46.2 H (3.8-10.6) k/uL RBC 2.85 L (4.30-5.90) m/uL Hgb 8.5 L (13.0-17.5) gm/dL Hct 28.5 L (39.0-53.0) % MCHC 29.7 L (31.0-37.0) g/dL RDW 16.0 H (11.5-15.5) % Neutrophils # (Manual) 33.70 H (1.3-7.7) k/uL Lymphocytes # (Manual) 5.54 H (1.0-4.8) k/uL Monocytes # (Manual) 5.54 H (0-1.0) k/uL Metamyelocytes # (Man) 1.85 H (0) k/uL Myelocytes # (Manual) 0.46 H (0) k/uL PT (9.0-12.0) sec INR (<1.2) APTT 78.8 H 61.0 H (22.0-30.0) sec Potassium (3.5-5.1) mmol/L Chloride (98-107) mmol/L Carbon Dioxide (22-30) mmol/L BUN (9-20) mg/dL Creatinine (0.66-1.25) mg/dL AST (17-59) U/L ALT (4-49) U/L Total Protein (6.3-8.2) g/dL Albumin (3.5-5.0) g/dL 09/30/20 09/30/20 Range/Units 05:20 05:20 WBC (3.8-10.6) k/uL RBC (4.30-5.90) m/uL Hgb (13.0-17.5) gm/dL Hct (39.0-53.0) % MCHC (31.0-37.0) g/dL RDW (11.5-15.5) % Neutrophils # (Manual) (1.3-7.7) k/uL Lymphocytes # (Manual) (1.0-4.8) k/uL Monocytes # (Manual) (0-1.0) k/uL Metamyelocytes # (Man) (0) k/uL Myelocytes # (Manual) (0) k/uL PT 14.6 H (9.0-12.0) sec INR 1.5 H (<1.2) APTT 74.3 H (22.0-30.0) sec Potassium 5.3 H (3.5-5.1) mmol/L Chloride 129 H (98-107) mmol/L Carbon Dioxide 13 L (22-30) mmol/L BUN 72 H (9-20) mg/dL Creatinine 2.52 H (0.66-1.25) mg/dL AST 81 H (17-59) U/L ALT 136 H (4-49) U/L Total Protein 5.9 L (6.3-8.2) g/dL Albumin 2.8 L (3.5-5.0) g/dL Microbiology - Last 24 Hours (Table) 09/29/20 07:15 Gram Stain - Preliminary Bronchial Washings - Random Bronchial Washings Culture - Preliminary 09/29/20 07:15 Acid Fast Bacilli Smear - Final Bronchial Washings - Random Acid Fast Bacilli Culture - Preliminary 09/25/20 16:10 Blood Culture - Preliminary Blood No Growth after 96 hours 09/29/20 07:15 Fungal Culture - Preliminary Bronchial Washings - Random Assessment and Plan Assessment: 1 new onset of A. fib/A flutter: Remain on amiodarone, still seeing cardiology still on metoprolol and anticoagulation which been holding oral anticoagulation until after testing are complete. 2 severe dysphagia: Most likely secondary to myasthenia gravis, patient went for EGD and dilation patient with Dr. Cosme still on PPI. 3 severe advanced myasthenia gravis: Patient is off steroid at this point still on Mestinon will need to see neurology and might require further management such as IVIG or plasma pheresis. 4 aspiration pneumonia: With worsening symptoms still seen pulmonary still on gram-negative coverage with Zosyn still on O2 his Covid testing were negative. 5 COPD: With worsening symptoms continue O2 along with updraft treatment still on Solu-Medrol 60 mg IV every 6 hours.. 6 history of Graves' disease: Still on levothyroxine 75 g daily. 7 type 2 diabetes: Remain on Accu-Chek with sliding scales coverage was on oral Prandin as an outpatient we'll adjust his medication. 8 hypertension: Remain on metoprolol and Norvasc try to keep his systolic blood pressure below 140. 9 urinary tract infection with positive daily patient still on Zosyn currently. 10 chronic systolic congestive heart failure has been on M door metoprolol and diuretics. 11 hemoptysis patient be going for bronchoscopy and reevaluate after brought for any other abnormality. 12 hyperlipidemia: Remain on atorvastatin. 13 chronic pain management: Has been on hydrocodone as needed basis medication been held currently. CODE STATUS: Full code.
--- NOTE | 2020-10-01 12:13 | P.PN ---
Subjective Progress Note Date: 10/01/20 Principal diagnosis: A. fib/A flutter, respiratory failure, aspiration pneumonia, hemoptysis, dysphagia, myasthenia gravis, sepsis This is an 89-year-old male patient of Dr. Good and Dr. Monge with past medical history of diabetes mellitus type 2, hypertension, hyperlipidemia, Graves' disease, status post radiation treatment, and myasthenia. Patient was seen in the office about 2 weeks ago for generalized weakness and a near syncopal episode. Patient did have a 24-hour Holter monitor which did not reveal any A. fib or flutter at that time. His also tested for Covid which was negative. Patient was also having low blood sugar readings, Prandin was held. Home care was ordered. Homecare came to evaluate the patient and the nurse found his heart rate to be in the 140s so EMS was called. Initial EKG showed atrial flutter with a rate of 148. He was given a 10 mg bolus of Cardizem, patient became hypotensive in the 80s/50s. He was then switched to amiodarone. Chest x-ray showed left lower lobe pneumonia, he was started on Solu-Medrol, along with ceftriaxone and azithromycin. Repeat Covid test was negative. Troponin was elevated 0.052, 0.055. WBC 35.7, hemoglobin 9.5, potassium 5.6, BUN 62, creatinine 2.02. Pulmonology along with cardiology have been consulted, will obtain echocardiogram. Hematology was also consulted for leukocytosis. 09/27: Patient evaluated this morning, resting comfortably in bed, in no acute distress. Patient had developed a dysphasia, possible reactivation of his myasthenia gravis gravis, although patient does have a history of esophageal stricture. GI was consulted as well as speech therapy. Modified barium swallow showed normal study, no evidence for aspiration or penetration. Once his other medical conditions improve, GI plans on upper endoscopy with dilatation. Hematology consult appreciated for leukocytosis additional lab work pending. 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 UA was positive for infection, continues on ceftriaxone. IV amiodarone was transitioned to oral 400 mg 3 times a day and continue metoprolol 25 mg twice a day, remains on heparin drip. Heart rate still running between 90-110 with atrial fibrillation noted on the monitor. 09/28: Patient evaluated this morning on rounds, noted to be sitting up in bed actively throwing up, deshaun red blood noted in the emesis bucket. His anticoagulation is on hold, GI consulted who plans on proceeding with upper endoscopy tomorrow morning. Hemoglobin is stable was 9.4 today. He is still having dysphasia and having to regularly clear his throat, only tolerating fluids at this point. Levothyroxine was lowered to 100 g daily. Repeat chest x-ray showed patchy perihilar and basilar infiltrates with significant interval progression. Blood cultures show no growth to date remains, ceftriaxone changed to Zosyn to cover aspiration pneumonia. 09/29: Patient underwent upper endoscopy along with bronchoscopy this morning for his progressive dysphagia and hemoptysis , he was found have a moderate sized hiatal hernia but no evidence of esophagitis or esophageal stricture. Bronchoscopy revealed blood clots in the right mainstem, but no active bleeding blood was also noted in the right lower lobe, no distinct lesion or mass are noted, fluid was sent for cytology and microbiology. After the procedure patient had difficulty weaning off the vent, and was unable to be extubated, he was then transferred to the ICU. 09/30: Patient ended up going for EGD and dilation along with bronchoscopy ended up in the ICU for worsening respiratory failure and possible aspiration, continue current management still been treated for aspiration pneumonia as well. Multiple clot found on the right mainstem along with the bronchial tube also patient had large Haldol hernia along with esophagitis being treated with PPI. Patient is not doing well his oxygenation has been down A. fib slightly better control but his prognosis still very guarded. 10/01: Patient ended up aspirating his indication and fluid still not doing well dysphagia hanna despite the EGD and Dialtation. Patient myasthenia gravis sligh tly red worse at this point whether patient will benefit from IVIG or plasma phoresis to be determined, consult neurology continue current management patient still in the intensive care unit require more help he is worsening than yesterday. Apparently pulmonary has spoke with the family about his CODE STATUS was changed DO NOT RESUSCITATE no PEG tube and no intubation. Objective - Vital Signs Vital signs: Vital Signs Temp 97.3 F L 10/01/20 08:00 Pulse 102 H 10/01/20 11:49 Resp 20 10/01/20 11:00 BP 95/62 10/01/20 11:00 Pulse Ox 96 10/01/20 11:00 Intake & Output 09/30/20 10/01/20 10/01/20 18:59 06:59 18:59 Intake Total 1444.608 930 485 Output Total 357 350 100 Balance 1087.608 580 385 Weight 78.5 kg Intake: IV 900 830 310 .9 kvo 10 Sodium Chloride 0.9% 1, 900 830 300 000 ml @ 75 mls/hr IV . [id number] [facility] Rx#:[id number] Intake, IV Titration 184.608 100 175 Amount Dextrose 5% in Water 1, 75 000 ml @ 75 mls/hr IV . [id number] [facility] Rx#:[id number] Heparin Sod,Pork in 0.45% 84.608 NaCl 25,000 unit In 0.45 % NaCl 1 250ml.bag @ 12 UNITS/KG/HR 8.52 mls/hr IV .Q24H [facility] Rx#: [id number] Piperacillin-Tazobactam 3 100 100 100 .375 gm In Sodium Chloride 0.9% 100 ml @ 25 mls/hr IVPB Q12HR [facility] Rx #:[id number] Oral 360 Output: Urine 355 350 100 Stool 2 Other: Voiding Method Indwelling Catheter Indwelling Catheter # Bowel Movements 1 - Exam ROS: CONSTITUTIONAL: Well-developed no acute respiratory distress. Still have any mask on EYES: No icterus sclerae, no conjunctivitis. EARS, NOSE, MOUTH, THROAT, and FACE: No sore throat, lymphadenopathy, carotid bruits or deformity. RESPIRATORY: Difficult shortness of breath and dyspnea with mild wheezes. CARDIOVASCULAR: Still have tachycardia no sign of angina positive PND and orthopnea GASTROINTESTINAL: Post EGD without patient still having mild dysphagia GENITOURINARY: Negative for Hematuria or UTI, no kidney stones. Mild BPH symptoms INTEGUMENT/BREAST: Negative for any muscular injury with mild osteoarthritis.. HEMATOLOGIC/LYMPHATIC: Negative for bleed or purpura. MUSCULOSKELTAL: Negative for Myalgia or arthralgia. NEURLOGICAL: Mild confusion, history of myasthenia gravis, history of Graves' disease and severe Ophtalmopathy BEHAVIORAL/PSYCH: Negative. ENDOCRINE: Negative. - Exam GENERAL EXAM: Alert, very pleasant, 82-year-old male patient, 8 L of oxygen, he has conversational dyspnea, but no acute distress HEAD: Normocephalic/atraumatic. EYES: Normal reaction of pupils, equal size. Conjunctiva pink, sclera white. NOSE: Clear with pink turbinates. THROAT: No erythema or exudates. NECK: No masses, no JVD, no thyroid enlargement, no adenopathy. CHEST: No chest wall deformity. Symmetrical expansion. LUNGS: Equal air entry with fine inspiratory crackles at bilateral bases, but no wheeze, rhonchi or dullness. CVS: Regular rate and rhythm, normal S1 and S2, no gallops, no murmurs, no rubs ABDOMEN: Soft, nontender. No hepatosplenomegaly, normal bowel sounds, no guarding or rigidity. EXTREMITIES: No clubbing, no edema, no cyanosis, 2+ pulses and upper and lower extremities. MUSCULOSKELETAL: Muscle strength and tone normal. SPINE: No scoliosis or deformity SKIN: No rashes CENTRAL NERVOUS SYSTEM: No focal deficits, tone is normal in all 4 extremities. PSYCHIATRIC: Alert and oriented -3. Appropriate affect. Intact judgment and insight. - Labs CBC & Chem 7: 10/01/20 03:59 10/01/20 03:59 Labs: Abnormal Lab Results - Last 24 Hours (Table) 10/01/20 10/01/20 10/01/20 Range/Units 03:59 03:59 03:59 WBC 43.4 H (3.8-10.6) k/uL RBC 3.03 L (4.30-5.90) m/uL Hgb 8.6 L (13.0-17.5) gm/dL Hct 29.2 L (39.0-53.0) % MCHC 29.6 L (31.0-37.0) g/dL RDW 16.5 H (11.5-15.5) % Neutrophils # (Manual) 38.10 H (1.3-7.7) k/uL Lymphocytes # (Manual) 0.43 L (1.0-4.8) k/uL Monocytes # (Manual) 1.74 H (0-1.0) k/uL Metamyelocytes # (Man) 0.43 H (0) k/uL Myelocytes # (Manual) 2.60 H (0) k/uL PT 14.4 H (9.0-12.0) sec INR 1.5 H (<1.2) APTT (22.0-30.0) sec Potassium 5.6 H (3.5-5.1) mmol/L Chloride 126 H (98-107) mmol/L Carbon Dioxide 12 L (22-30) mmol/L BUN 72 H (9-20) mg/dL Creatinine 2.82 H (0.66-1.25) mg/dL Glucose 151 H (74-99) mg/dL 10/01/20 Range/Units 09:43 WBC (3.8-10.6) k/uL RBC (4.30-5.90) m/uL Hgb (13.0-17.5) gm/dL Hct (39.0-53.0) % MCHC (31.0-37.0) g/dL RDW (11.5-15.5) % Neutrophils # (Manual) (1.3-7.7) k/uL Lymphocytes # (Manual) (1.0-4.8) k/uL Monocytes # (Manual) (0-1.0) k/uL Metamyelocytes # (Man) (0) k/uL Myelocytes # (Manual) (0) k/uL PT (9.0-12.0) sec INR (<1.2) APTT 31.1 H (22.0-30.0) sec Potassium (3.5-5.1) mmol/L Chloride (98-107) mmol/L Carbon Dioxide (22-30) mmol/L BUN (9-20) mg/dL Creatinine (0.66-1.25) mg/dL Glucose (74-99) mg/dL Microbiology - Last 24 Hours (Table) 09/29/20 07:15 Gram Stain - Final Bronchial Washings - Random Bronchial Washings Culture - Final 09/25/20 16:10 Blood Culture - Preliminary Blood No Growth after 120 hours Assessment and Plan Assessment: 1 new onset of A. fib/A flutter: Remain on amiodarone, still seeing cardiology still on metoprolol and anticoagulation which been holding oral anticoagulation until after testing are complete. Pulse rate slightly better today 2 severe dysphagia: Most likely secondary to myasthenia gravis, patient went for EGD and dilation patient with Dr. Hdz still on PPI. Symptoms are slightly red worse and is nothing by mouth currently. 3 severe advanced myasthenia gravis: Patient is off steroid at this point still on Mestinon will need to see neurology and might require further management such as IVIG or plasma pheresis. 4 aspiration pneumonia: With worsening symptoms still seen pulmonary still on gram-negative coverage with Zosyn still on O2 his Covid testing were negative. Family has declined the idea of doing pink to prevent patient from having further aspiration pneumonia. 5 COPD: With worsening symptoms continue O2 along with updraft treatment still on Solu-Medrol 60 mg IV every 6 hours.. 6 history of Graves' disease: Still on levothyroxine 75 g daily. 7 type 2 diabetes: Remain on Accu-Chek with sliding scales coverage was on oral Prandin as an outpatient we'll adjust his medication. 8 hypertension: Remain on metoprolol and Norvasc try to keep his systolic blood pressure below 140. 9 urinary tract infection with positive daily patient still on Zosyn currently. 10 chronic systolic congestive heart failure has been on M door metoprolol and diuretics. 11 hemoptysis patient be going for bronchoscopy and reevaluate after brought for any other abnormality. 12 hyperlipidemia: Remain on atorvastatin. 13 chronic pain management: Has been on hydrocodone as needed basis medication been held currently. CODE STATUS: DO NOT RESUSCITATE no intubation and no PEG tube.
--- NOTE | 2020-10-01 13:22 | PN ---
PROGRESS NOTE Zane is an 89-year-old gentleman with atrial fibrillation, myasthenia gravis, aspiration. This morning, he is in the ICU as he aspirated his medications and food yesterday and is currently on a BiPAP. His heart rate is well controlled. He is not able to take the Eliquis. I am going to switch it to IV heparin and will put the Lopressor into IV Lopressor. I talked to the patient about undergoing a PEG tube, both to give his medications and for nutrition and I am asking a neurologist to evaluate the patient to see if we can treat his myasthenia gravis different. PHYSICAL EXAMINATION: Patient is comfortable at rest. Heart rate is 90 beats per minute, blood pressure is 97/72, respiratory is 18. Chest exam reveals occasional rhonchi bilaterally with diminished air entry. Heart exam reveals first and second heart sounds, irregular rhythm. Abdomen is soft. Exam of extremities reveals mild edema. Peripheral pulses are felt. LABORATORY DATA: Lab show a hemoglobin of 8.6, potassium is elevated at 5.6, creatinine is 2.8. ASSESSMENT: 1. Permanent atrial fibrillation with controlled ventricular rate. 2. Aspiration secondary to myasthenia gravis. PLAN: I will change his medications to IV. Monitor his potassium level and treat it as needed with the rectal Kayexalate if needed. MMODL / IJN: [id number] /
[2020-10-01] MEDS: GABAPENTIN 100 MG CAP PO SCH (20:28)
[2020-10-01] MEDS: FORMOTEROL FUMARATE 20 MCG/2 ML NEBU INHALATION SCH (20:45)
[2020-10-01] MEDS: BUDESONIDE 1 MG/2 ML NEBU INHALATION SCH (20:46)
[2020-10-01] MEDS: HYDROmorphone 0.5 MG/0.5 ML SYRINGE IVP PRN (21:44)
[2020-10-02] MEDS: methylPREDNISolone SOD SUCCI 125 MG/2 ML VIAL IV SCH ×3 (00:39→12:32)
[2020-10-02] MEDS: HYDROmorphone 0.5 MG/0.5 ML SYRINGE IVP PRN ×2 (00:52→09:09)
[2020-10-02] MEDS: METOPROLOL TARTRATE 5 MG/5 ML VIAL IVP SCH ×2 (00:52→12:29)
[2020-10-02 04:57] LABS: Anisocytosis Slight; HCT 28.7 % (39.0-53.0); HGB 8.6 gm/dL (13.0-17.5); Hypochromasia Marked; MCH 28.7 pg (25.0-35.0); MCV 95.8 fL (80.0-100.0); Macrocytosis Slight; Platelet Count 139 k/uL (150-450); RDW 17.2 % (11.5-15.5)
[2020-10-02 05:01] LABS: INR 1.5 (<1.2); Prothrombin Time 14.4 sec (9.0-12.0)
[2020-10-02 05:11] LABS: Calcium 9.3 mg/dL (8.4-10.2); Potassium 5.2 mmol/L (3.5-5.1)
[2020-10-02 06:35] LABS: Band Neutrophils % 4 %; Lymphocytes # (M) 4.23 k/uL (1.0-4.8); Metamyelocytes % 1 %; Monocytes # (M) 8.46 k/uL (0-1.0); Myelocytes % 1 %; Neutrophils % (M) 74 %; Nucleated Red Blood Cells 2 /100 WBC (0-0); Total Cells Counted 200; WBC 60.4 k/uL (3.8-10.6)
[2020-10-02 06:40] LABS: Poikilocytosis (M) Present; Polychromasia Present
[2020-10-02 06:49] VITALS: TEMP 97
[2020-10-02] MEDS: INSULIN ASPART (NovoLOG) 100 UNIT/ML VIAL SQ SCH ×2 (07:06→12:44)
[2020-10-02] MEDS: PYRIDOSTIGMINE 60 MG TAB PO SCH (07:07)
[2020-10-02] MEDS: IPRATROPIUM-ALBUTEROL 3 ML NEB INHALATION SCH ×2 (07:49→11:14)
[2020-10-02] MEDS: FORMOTEROL FUMARATE 20 MCG/2 ML NEBU INHALATION SCH (07:49)
[2020-10-02] MEDS: BUDESONIDE 1 MG/2 ML NEBU INHALATION SCH (07:49)
[2020-10-02] MEDS ORDERED: LEVOTHYROXINE IVP 100 MCG/5 ML VIAL IV SCH (09:00)
[2020-10-02] MEDS ORDERED: PANTOPRAZOLE 40 MG/10 ML VIAL IVP SCH (09:00)
[2020-10-02 09:28] LABS: Glucose,Whole Blood 153 mg/dL (75-99)
[2020-10-02 09:30] LABS: Glucose,Whole Blood 216 mg/dL (75-99)
[2020-10-02 09:31] LABS: Glucose,Whole Blood 138 mg/dL (75-99)
[2020-10-02 09:37] LABS: Glucose,Whole Blood 108 mg/dL (75-99)
[2020-10-02 09:38] LABS: Glucose,Whole Blood 154 mg/dL (75-99)
[2020-10-02 09:39] LABS: Glucose,Whole Blood 184 mg/dL (75-99)
[2020-10-02 09:39] LABS: Glucose,Whole Blood 94 mg/dL (75-99)
[2020-10-02 09:39] LABS: Glucose,Whole Blood 156 mg/dL (75-99)
[2020-10-02 09:39] LABS: Glucose,Whole Blood 120 mg/dL (75-99)
[2020-10-02 09:40] LABS: Glucose,Whole Blood 153 mg/dL (75-99)
[2020-10-02 09:40] LABS: Glucose,Whole Blood 181 mg/dL (75-99)
[2020-10-02 09:40] LABS: Glucose,Whole Blood 166 mg/dL (75-99)
[2020-10-02 09:41] LABS: Glucose,Whole Blood 220 mg/dL (75-99)
[2020-10-02 09:41] LABS: Glucose,Whole Blood 214 mg/dL (75-99)
[2020-10-02 09:41] LABS: Glucose,Whole Blood 193 mg/dL (75-99)
--- NOTE | 2020-10-02 10:00 | PN ---
PROGRESS NOTE Zane is an 89-year-old gentleman who is in the intensive care unit with aspiration pneumonia and has respiratory insufficiency. He has myasthenia gravis, does not want to have a PEG tube. Remains in atrial fibrillation. He is currently on IV heparin and IV Lopressor. On exam, heart rate is 110 beats per minute. Blood pressure is 103/70. Respiratory rate is 18. Chest exam reveals diminished air entry at the bases. Heart exam reveals first and second heart sounds, irregular rhythm. Abdomen is soft. Exam of extremities did not reveal any edema. His lab show a white cell count of 60, platelet count of 139, potassium is 5.2, creatinine is 3, BUN is 81. ASSESSMENT: 1. Persistent atrial fibrillation with poorly controlled ventricular rate. 2. Aspiration pneumonia. 3. Myasthenia gravis. Patient will continue current medications. Prognosis is guarded. MMODL / IJN: [id number] /
[2020-10-02] MEDS: REPAGLINIDE 1 MG TAB PO SCH (10:45)
[2020-10-02] MEDS: PIPERACILLIN-TAZOBACTAM 3.375 GM in SODIUM CHLORIDE 0.9% 100 ML IVPB SCH (10:45)
[2020-10-02] MEDS: HEPARIN SOD,PORK IN 0.45% NACL 25,000 UNIT in 0.45% NACL 1 250ML.BAG IV SCH (10:45)
--- NOTE | 2020-10-02 10:51 | PN ---
PROGRESS NOTE PULMONARY/CRITICAL CARE PROGRESS NOTE: DATE OF SERVICE: October 02, 2020 Critical care time greater than 30 minutes. HISTORY OF PRESENT ILLNESS: This is an 89-year-old male who was admitted back on September 25. His admission diagnosis was that of acute hypoxemic respiratory failure secondary to aspiration pneumonia. The patient was aspirating primarily because of his myasthenia gravis. There was thought that he might have an esophageal stricture, but EGD confirm no stricture. His COVID-19 testing was negative. The patient also was coughing up blood. We did bronchoscopy at the time of the EGD, and there was blood in the airways, but no active bleeding. Mostly they were blood clots and probably consistent with the patient's underlying pneumonia. This all took place on September 29. Currently, the patient is on BiPAP at 12/5 and 90%. He is on heparin via weight based protocol. He is getting D5W at 75 mL an hour. Yesterday I had a long conversation with the patient's daughter. She was in agreement that the patient should be a do not resuscitate/do not intubate. Also, she did not want the patient to end up with a feeding tube. PHYSICAL EXAMINATION: VITAL SIGNS: Current vital signs are reviewed. Temperature is 97, heart rate is 114 and irregular, respiratory rate is 16, blood pressure 93/73, mean 79 saturations are 97% on BiPAP 12/5 and 90%. Appears in no acute distress. HEENT: Examination is grossly unremarkable. BiPAP mask in place. NECK: Supple. Full range of motion. No adenopathy. Neck veins are flat. CARDIOVASCULAR: Examination reveals tachycardia. It is irregular. Heart rate about 112-115 beats per minute. LUNGS: Reveal coarse bilateral rhonchi. Breath sounds are diminished. There are some bilateral mostly basilar crackles. No wheezes. ABDOMEN: Soft. Bowel sounds are not noted. EXTREMITIES: Intact. No significant edema. SKIN: Without rash. NEUROLOGIC: Examination is essentially normal, but the patient is diffusely weak. LABS: Reviewed. White count 16.4, hemoglobin 8.6, hematocrit 28.7, platelet count 139,000. PT, INR were 14.4 and 1.5 respectively. PTT 51. Sodium 143, potassium 5.2, chloride 126, CO2 is 11, anion gap is 6. BUN and creatinine were 81 and 3.01, glucose 163. Microbiology thus far is negative. Bronch washes from the are either pending or negative. IMAGING: Chest x-ray from October 01 shows worsening multifocal pneumonia and consolidation with patchy airspace disease. CURRENT MEDICATIONS: Reviewed. The patient is on Pulmicort, D5W, formoterol, Neurontin, IV heparin, Dilaudid, insulin, DuoNeb, levothyroxine, Solu-Medrol, metoprolol, Narcan, Zofran, Protonix, Zosyn, Mestinon, Prandin, and sodium bicarbonate tablets. ASSESSMENT: 1. Acute hypoxemic respiratory failure secondary to aspiration pneumonia. 2. Status post EGD, September 29, without evidence of esophageal stricture. 3. Status post bronchoscopy on September 29 for hemoptysis, without evidence of active bleeding. 4. Chronic dysphagia and aspiration secondary to myasthenia gravis. 5. Rule out ST-segment elevation myocardial infarction. 6. Atrial fibrillation/flutter with RVR. 7. Acute kidney injury. 8. Non-anion gap metabolic acidosis. 9. History of tobacco dependence. 10.Hypertension. 11.Hyperlipidemia. 12.Diabetes mellitus. 13.Myasthenia gravis. 14.History of Graves disease, status post radioactive iodine treatment, and now with hypothyroidism. 15.Previous history of myocardial infarction. 16.History of pneumonia. 17.Ischemic cardiomyopathy with an ejection fraction of 40% to 45%. PLAN: The patient remains on BiPAP. He is on IV heparin for his atrial fibrillation. The patient is not coughing up any additional blood. The patient does not want a feeding tube. He is DO NOT INTUBATE/DO NOT RESUSCITATE. I confirmed that with the daughter yesterday. The patient appears to be reasonably stable. We will try to manage him short of intubation and mechanical ventilation. Chest x-ray in my opinion is worse. Prognosis is guarded. Critical care time greater than 30 minutes. MMODL / IJN: [id number] /
[2020-10-02] MEDS ORDERED: MORPHINE SULFATE 2 MG/ML SYRINGE IV PRN (11:30)
[2020-10-02] MEDS ORDERED: SODIUM CHLORIDE 0.9% 1,000 ML IV SCH (11:30)
[2020-10-02] MEDS ORDERED: MORPHINE SULFATE 2 MG/ML SYRINGE IVP ONE (11:30)
[2020-10-02] MEDS ORDERED: MORPHINE SULFATE (100 MG/2 ML) 100 MG in SODIUM CHLORIDE 0.9% 100 ML IV SCH (11:30)
[2020-10-02] MEDS ORDERED: MORPHINE SULFATE 4 MG/ML SYRINGE IV PRN (11:30)
[2020-10-02] MEDS ORDERED: ATROPINE OPHTH SOLN 1% 5ML BTL SUBLINGUAL PRN (11:30)
[2020-10-02] MEDS ORDERED: SCOPOLAMINE 1.5MG/72HR PATCH TRANSDERM SCH (12:00)
[2020-10-02 12:04] LABS: Glucose,Whole Blood 196 mg/dL (75-99)
--- NOTE | 2020-10-02 12:28 | P.PN ---
Subjective Progress Note Date: 10/02/20 Principal diagnosis: A. fib/A flutter, respiratory failure, aspiration pneumonia, hemoptysis, dysphagia, myasthenia gravis, sepsis, much worsening sepsis and infection, severe hypoxia requiring higher flow O2 to BiPAP This is an 89-year-old male patient of Dr. Good and Dr. Monge with past medical history of diabetes mellitus type 2, hypertension, hyperlipidemia, Graves' disease, status post radiation treatment, and myasthenia. Patient was seen in the office about 2 weeks ago for generalized weakness and a near syncopal episode. Patient did have a 24-hour Holter monitor which did not reveal any A. fib or flutter at that time. His also tested for Covid which was negative. Patient was also having low blood sugar readings, Prandin was held. Home care was ordered. Homecare came to evaluate the patient and the nurse found his heart rate to be in the 140s so EMS was called. Initial EKG showed atrial flutter with a rate of 148. He was given a 10 mg bolus of Cardizem, patient became hypotensive in the 80s/50s. He was then switched to amiodarone. Chest x-ray showed left lower lobe pneumonia, he was started on Solu-Medrol, along with ceftriaxone and azithromycin. Repeat Covid test was negative. Troponin was elevated 0.052, 0.055. WBC 35.7, hemoglobin 9.5, potassium 5.6, BUN 62, creatinine 2.02. Pulmonology along with cardiology have been consulted, will obtain echocardiogram. Hematology was also consulted for leukocytosis. 09/27: Patient evaluated this morning, resting comfortably in bed, in no acute distress. Patient had developed a dysphasia, possible reactivation of his myasthenia gravis gravis, although patient does have a history of esophageal stricture. GI was consulted as well as speech therapy. Modified barium swallow showed normal study, no evidence for aspiration or penetration. Once his other medical conditions improve, GI plans on upper endoscopy with dilatation. Hematology consult appreciated for leukocytosis additional lab work pending. 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 UA was positive for infection, continues on ceftriaxone. IV amiodarone was transitioned to oral 400 mg 3 times a day and continue metoprolol 25 mg twice a day, remains on heparin drip. Heart rate still running between 90-110 with atrial fibrillation noted on the monitor. 09/28: Patient evaluated this morning on rounds, noted to be sitting up in bed actively throwing up, deshaun red blood noted in the emesis bucket. His anticoagulation is on hold, GI consulted who plans on proceeding with upper e ndoscopy tomorrow morning. Hemoglobin is stable was 9.4 today. He is still having dysphasia and having to regularly clear his throat, only tolerating fluids at this point. Levothyroxine was lowered to 100 g daily. Repeat chest x-ray showed patchy perihilar and basilar infiltrates with significant interval progression. Blood cultures show no growth to date remains, ceftriaxone changed to Zosyn to cover aspiration pneumonia. 09/29: Patient underwent upper endoscopy along with bronchoscopy this morning for his progressive dysphagia and hemoptysis , he was found have a moderate sized hiatal hernia but no evidence of esophagitis or esophageal stricture. Bronchoscopy revealed blood clots in the right mainstem, but no active bleeding blood was also noted in the right lower lobe, no distinct lesion or mass are noted, fluid was sent for cytology and microbiology. After the procedure patie nt had difficulty weaning off the vent, and was unable to be extubated, he was then transferred to the ICU. 09/30: Patient ended up going for EGD and dilation along with bronchoscopy ended up in the ICU for worsening respiratory failure and possible aspiration, continue current management still been treated for aspiration pneumonia as well. Multiple clot found on the right mainstem along with the bronchial tube also patient had large Haldol hernia along with esophagitis being treated with PPI. Patient is not doing well his oxygenation has been down A. fib slightly better control but his prognosis still very guarded. 10/01: Patient ended up aspirating his indication and fluid still not doing well dysphagia hanna despite the EGD and Dialtation. Patient myasthenia gravis slightly red worse at this point whether patient will benefit from IVIG or plasma phoresis to be determined, consult neurology continue current management patient still in the intensive care unit require more help he is worsening than yesterday. Apparently pulmonary has spoke with the family about his CODE STATUS was changed DO NOT RESUSCITATE no PEG tube and no intubation. 10/02: Patient continued to aspirate require BiPAP with higher flow remain on BiPAP for the whole time still in the ICU had long discussion with the family today with his outcome is extremely low patient had refused intubation also refused PEG feeding family are talking about comfort care and end-of-life with hospice which will be initiated ICU and transfer patient out of the ICU and furthermore home if possible Objective - Vital Signs Vital signs: Vital Signs Temp 97 F L 10/02/20 04:00 Pulse 112 H 10/02/20 11:25 Resp 11 L 10/02/20 11:00 BP 81/52 10/02/20 11:00 Pulse Ox 92 L 10/02/20 11:00 Intake & Output 10/01/20 10/02/20 10/02/20 18:59 06:59 18:59 Intake Total 1067.22 1172.988 445.846 Output Total 275 432 120 Balance 792.22 740.988 325.846 Weight 76.1 kg Intake: IV 370 120 330 .9 kvo 70 120 30 Dextrose 5% in Water 1, 300 000 ml @ 75 mls/hr IV . [id number] [facility] Rx#:[id number] Sodium Chloride 0.9% 1, 300 000 ml @ 75 mls/hr IV . [id number] [facility] Rx#:[id number] Intake, IV Titration 697.22 1052.988 115.846 Amount Dextrose 5% in Water 1, 525 900 75 000 ml @ 75 mls/hr IV . [id number] [facility] Rx#:[id number] Heparin Sod,Pork in 0.45% 72.22 52.988 40.846 NaCl 25,000 unit In 0.45 % NaCl 1 250ml.bag @ 12 UNITS/KG/HR 9.42 mls/hr IV .Q24H [facility] Rx#: [id number] Piperacillin-Tazobactam 3 100 100 .375 gm In Sodium Chloride 0.9% 100 ml @ 25 mls/hr IVPB Q12HR [facility] Rx #:[id number] Output: Urine 275 432 120 Other: Voiding Method Indwelling Catheter Indwelling Catheter Indwelling Catheter - Exam ROS: CONSTITUTIONAL: Well-developed no acute respiratory distress. Still have any mask on EYES: No icterus sclerae, no conjunctivitis. EARS, NOSE, MOUTH, THROAT, and FACE: No sore throat, lymphadenopathy, carotid bruits or deformity. RESPIRATORY: Difficult shortness of breath and dyspnea with mild wheezes. CARDIOVASCULAR: Still have tachycardia no sign of angina positive PND and orthopnea GASTROINTESTINAL: Post EGD without patient still having mild dysphagia GENITOURINARY: Negative for Hematuria or UTI, no kidney stones. Mild BPH symptoms INTEGUMENT/BREAST: Negative for any muscular injury with mild osteoarthritis.. HEMATOLOGIC/LYMPHATIC: Negative for bleed or purpura. MUSCULOSKELTAL: Negative for Myalgia or arthralgia. NEURLOGICAL: Mild confusion, history of myasthenia gravis, history of Graves' disease and severe Ophtalmopathy BEHAVIORAL/PSYCH: Negative. ENDOCRINE: Negative. - Exam GENERAL EXAM: Alert, very pleasant, 82-year-old male patient, 8 L of oxygen, he has conversational dyspnea, but no acute distress HEAD: Normocephalic/atraumatic. EYES: Normal reaction of pupils, equal size. Conjunctiva pink, sclera white. NOSE: Clear with pink turbinates. THROAT: No erythema or exudates. NECK: No masses, no JVD, no thyroid enlargement, no adenopathy. CHEST: No chest wall deformity. Symmetrical expansion. LUNGS: Equal air entry with fine inspiratory crackles at bilateral bases, but no wheeze, rhonchi or dullness. CVS: Regular rate and rhythm, normal S1 and S2, no gallops, no murmurs, no rubs ABDOMEN: Soft, nontender. No hepatosplenomegaly, normal bowel sounds, no gua rding or rigidity. EXTREMITIES: No clubbing, no edema, no cyanosis, 2+ pulses and upper and lower extremities. MUSCULOSKELETAL: Muscle strength and tone normal. SPINE: No scoliosis or deformity SKIN: No rashes CENTRAL NERVOUS SYSTEM: No focal deficits, tone is normal in all 4 extremities. PSYCHIATRIC: Alert and oriented -3. Appropriate affect. Intact judgment and insight. - Labs CBC & Chem 7: 10/02/20 04:11 10/02/20 04:11 Labs: Abnormal Lab Results - Last 24 Hours (Table) 09/29/20 09/29/20 09/29/20 Range/Units 06:16 08:04 09:42 WBC (3.8-10.6) k/uL RBC (4.30-5.90) m/uL Hgb (13.0-17.5) gm/dL Hct (39.0-53.0) % MCHC (31.0-37.0) g/dL RDW (11.5-15.5) % Plt Count (150-450) k/uL Neutrophils # (Manual) (1.3-7.7) k/uL Monocytes # (Manual) (0-1.0) k/uL Metamyelocytes # (Man) (0) k/uL Myelocytes # (Manual) (0) k/uL Nucleated RBCs (0-0) /100 WBC PT (9.0-12.0) sec INR (<1.2) APTT (22.0-30.0) sec Potassium (3.5-5.1) mmol/L Chloride (98-107) mmol/L Carbon Dioxide (22-30) mmol/L BUN (9-20) mg/dL Creatinine (0.66-1.25) mg/dL Glucose (74-99) mg/dL POC Glucose (mg/dL) 108 H 153 H 138 H (75-99) mg/dL 09/29/20 09/29/20 09/30/20 Range/Units 12:29 20:17 12:35 WBC (3.8-10.6) k/uL RBC (4.30-5.90) m/uL Hgb (13.0-17.5) gm/dL Hct (39.0-53.0) % MCHC (31.0-37.0) g/dL RDW (11.5-15.5) % Plt Count (150-450) k/uL Neutrophils # (Manual) (1.3-7.7) k/uL Monocytes # (Manual) (0-1.0) k/uL Metamyelocytes # (Man) (0) k/uL Myelocytes # (Manual) (0) k/uL Nucleated RBCs (0-0) /100 WBC PT (9.0-12.0) sec INR (<1.2) APTT (22.0-30.0) sec Potassium (3.5-5.1) mmol/L Chloride (98-107) mmol/L Carbon Dioxide (22-30) mmol/L BUN (9-20) mg/dL Creatinine (0.66-1.25) mg/dL Glucose (74-99) mg/dL POC Glucose (mg/dL) 154 H 184 H 120 H (75-99) mg/dL 09/30/20 09/30/20 10/01/20 Range/Units 16:59 20:23 06:37 WBC (3.8-10.6) k/uL RBC (4.30-5.90) m/uL Hgb (13.0-17.5) gm/dL Hct (39.0-53.0) % MCHC (31.0-37.0) g/dL RDW (11.5-15.5) % Plt Count (150-450) k/uL Neutrophils # (Manual) (1.3-7.7) k/uL Monocytes # (Manual) (0-1.0) k/uL Metamyelocytes # (Man) (0) k/uL Myelocytes # (Manual) (0) k/uL Nucleated RBCs (0-0) /100 WBC PT (9.0-12.0) sec INR (<1.2) APTT (22.0-30.0) sec Potassium (3.5-5.1) mmol/L Chloride (98-107) mmol/L Carbon Dioxide (22-30) mmol/L BUN (9-20) mg/dL Creatinine (0.66-1.25) mg/dL Glucose (74-99) mg/dL POC Glucose (mg/dL) 156 H 166 H 181 H (75-99) mg/dL 10/01/20 10/01/20 10/01/20 Range/Units 11:28 17:29 17:49 WBC (3.8-10.6) k/uL RBC (4.30-5.90) m/uL Hgb (13.0-17.5) gm/dL Hct (39.0-53.0) % MCHC (31.0-37.0) g/dL RDW (11.5-15.5) % Plt Count (150-450) k/uL Neutrophils # (Manual) (1.3-7.7) k/uL Monocytes # (Manual) (0-1.0) k/uL Metamyelocytes # (Man) (0) k/uL Myelocytes # (Manual) (0) k/uL Nucleated RBCs (0-0) /100 WBC PT (9.0-12.0) sec INR (<1.2) APTT 103.8 H* (22.0-30.0) sec Potassium (3.5-5.1) mmol/L Chloride (98-107) mmol/L Carbon Dioxide (22-30) mmol/L BUN (9-20) mg/dL Creatinine (0.66-1.25) mg/dL Glucose (74-99) mg/dL POC Glucose (mg/dL) 153 H 214 H (75-99) mg/dL 10/01/20 10/02/20 10/02/20 Range/Units 20:13 01:47 04:11 WBC 60.4 H* (3.8-10.6) k/uL RBC 3.00 L (4.30-5.90) m/uL Hgb 8.6 L (13.0-17.5) gm/dL Hct 28.7 L (39.0-53.0) % MCHC 30.0 L (31.0-37.0) g/dL RDW 17.2 H (11.5-15.5) % Plt Count 139 L (150-450) k/uL Neutrophils # (Manual) 47.10 H (1.3-7.7) k/uL Monocytes # (Manual) 8.46 H (0-1.0) k/uL Metamyelocytes # (Man) 0.60 H (0) k/uL Myelocytes # (Manual) 0.60 H (0) k/uL Nucleated RBCs 2 H (0-0) /100 WBC PT (9.0-12.0) sec INR (<1.2) APTT 76.0 H (22.0-30.0) sec Potassium (3.5-5.1) mmol/L Chloride (98-107) mmol/L Carbon Dioxide (22-30) mmol/L BUN (9-20) mg/dL Creatinine (0.66-1.25) mg/dL Glucose (74-99) mg/dL POC Glucose (mg/dL) 193 H (75-99) mg/dL 10/02/20 10/02/20 10/02/20 Range/Units 04:11 04:11 07:02 WBC (3.8-10.6) k/uL RBC (4.30-5.90) m/uL Hgb (13.0-17.5) gm/dL Hct (39.0-53.0) % MCHC (31.0-37.0) g/dL RDW (11.5-15.5) % Plt Count (150-450) k/uL Neutrophils # (Manual) (1.3-7.7) k/uL Monocytes # (Manual) (0-1.0) k/uL Metamyelocytes # (Man) (0) k/uL Myelocytes # (Manual) (0) k/uL Nucleated RBCs (0-0) /100 WBC PT 14.4 H (9.0-12.0) sec INR 1.5 H (<1.2) APTT (22.0-30.0) sec Potassium 5.2 H (3.5-5.1) mmol/L Chloride 126 H (98-107) mmol/L Carbon Dioxide 11 L (22-30) mmol/L BUN 81 H (9-20) mg/dL Creatinine 3.01 H (0.66-1.25) mg/dL Glucose 163 H (74-99) mg/dL POC Glucose (mg/dL) 220 H (75-99) mg/dL 10/02/20 10/02/20 10/02/20 Range/Units 08:44 09:25 11:53 WBC (3.8-10.6) k/uL RBC (4.30-5.90) m/uL Hgb (13.0-17.5) gm/dL Hct (39.0-53.0) % MCHC (31.0-37.0) g/dL RDW (11.5-15.5) % Plt Count (150-450) k/uL Neutrophils # (Manual) (1.3-7.7) k/uL Monocytes # (Manual) (0-1.0) k/uL Metamyelocytes # (Man) (0) k/uL Myelocytes # (Manual) (0) k/uL Nucleated RBCs (0-0) /100 WBC PT (9.0-12.0) sec INR (<1.2) APTT 51.0 H (22.0-30.0) sec Potassium (3.5-5.1) mmol/L Chloride (98-107) mmol/L Carbon Dioxide (22-30) mmol/L BUN (9-20) mg/dL Creatinine (0.66-1.25) mg/dL Glucose (74-99) mg/dL POC Glucose (mg/dL) 216 H 196 H (75-99) mg/dL Microbiology - Last 24 Hours (Table) 09/25/20 16:10 Blood Culture - Final Blood No Growth after 144 hours 09/29/20 07:15 Gram Stain - Final Bronchial Washings - Random Bronchial Washings Culture - Final Assessment and Plan Assessment: 1 new onset of A. fib/A flutter: Remain on amiodarone, still seeing cardiology still on metoprolol and anticoagulation which been holding oral anticoagulation until after testing are complete. Pulse rate slightly better today 2 severe dysphagia: Most likely secondary to myasthenia gravis, patient symptoms are much better had quite but recurrent aspiration and he is to stay nothing by mouth this point. 3 severe advanced myasthenia gravis: Patient is off steroid at this point still on Mestinon will need to see neurology and might require further management such as IVIG or plasma pheresis. No further management require this point per family requested not to transfer patient out of the area. 4 aspiration pneumonia: Worsening aspiration pneumonia require BiPAP for the whole time still on higher flow to his survival at this point is extremely low we'll continue supportive care beside his IV antibiotics. 5 COPD: With worsening symptoms continue O2 along with updraft treatment still on Solu-Medrol 60 mg IV every 6 hours.. 6 history of Graves' disease: Still on levothyroxine 75 g daily. 7 type 2 diabetes: Remain on Accu-Chek with sliding scales coverage was on oral Prandin as an outpatient we'll adjust his medication. 8 hypertension: Remain on metoprolol and Norvasc try to keep his systolic blood pressure below 140. 9 urinary tract infection with positive daily patient still on Zosyn currently. 10 chronic systolic congestive heart failure has been on M door metoprolol and diuretics. 11 hemoptysis patient be going for bronchoscopy and reevaluate after brought for any other abnormality. 12 hyperlipidemia: Remain on atorvastatin. 13 chronic pain management: Has been on hydrocodone as needed basis medication been held currently. CODE STATUS: DO NOT RESUSCITATE no intubation and no PEG tube. Family conference: Spoke with the family about patient's current condition and they're fully aware of his extreme high mortality and they're asking for comfort care palliative and furthermore hospice care.
[2020-10-02 14:06] VITALS: BP 98/68
[2020-10-02 14:34] VITALS: BMI 25.4
[2020-10-02 14:53] VITALS: PULSE 0; RESP 0
--- NOTE | 2020-10-09 22:20 | P.DS ---
Providers Date of admission: 09/25/20 16:59 Expected date of discharge: 10/02/20 Attending physician: Johanny Shah Consults: 09/25/20 16:54 Consult Physician Routine Consulting Provider: Hadley Meeks Consult Reason/Comments: Pneumonia Do you want consulting provider notified?: Yes 09/25/20 16:55 Consult Physician Routine Consulting Provider: [facility] Consult Reason/Comments: Atrial Flutter Do you want consulting provider notified?: Yes 09/26/20 09:20 Consult Physician Routine Consulting Provider: Prakash Rodriguez Consult Reason/Comments: Leukocytosis, ?? Leukemoid reaction Do you want consulting provider notified?: Yes Placement Type Exists?: Yes 09/26/20 12:02 Consult Physician Routine Consulting Provider: Roselyn Hdz Consult Reason/Comments: Difficulties swallowing Do you want consulting provider notified?: Yes 09/29/20 05:55 Consult Physician Routine Consulting Provider: Brendon Snider Consult Reason/Comments: severe Leukocytosis, Leukemia Vs Leukemoid reaction. Do you want consulting provider notified?: Yes 10/01/20 09:11 Consult Physician Routine Consulting Provider: Jesus Nickerson Consult Reason/Comments: myesthenia gravis Do you want consulting provider notified?: Yes Primary care physician: [facility] Course: Principal diagnosis: A. fib/A flutter, respiratory failure, aspiration pneumonia, hemoptysis, dysphagia, myasthenia gravis, sepsis, much worsening sepsis and infection, severe hypoxia requiring higher flow O2 to BiPAP This is an 89-year-old male patient of Dr. Good and Dr. Monge with past medical history of diabetes mellitus type 2, hypertension, hyperlipidemia, Graves' disease, status post radiation treatment, and myasthenia. Patient was seen in the office about 2 weeks ago for generalized weakness and a near syncopal episode. Patient did have a 24-hour Holter monitor which did not reveal any A. fib or flutter at that time. His also tested for Covid which was negative. Patient was also having low blood sugar readings, Prandin was held. Home care was ordered. Homecare came to evaluate the patient and the nurse found his heart rate to be in the 140s so EMS was called. Initial EKG showed atrial flutter with a rate of 148. He was given a 10 mg bolus of Cardizem, patient became hypotensive in the 80s/50s. He was then switched to amiodarone. Chest x-ray showed left lower lobe pneumonia, he was started on Solu-Medrol, along with ceftriaxone and azithromycin. Repeat Covid test was negative. Troponin was elevated 0.052, 0.055. WBC 35.7, hemoglobin 9.5, potassium 5.6, BUN 62, creatinine 2.02. Pulmonology along with cardiology have been consulted, will obtain echocardiogram. Hematology was also consulted for leukocytosis. 09/27: Patient evaluated this morning, resting comfortably in bed, in no acute distress. Patient had developed a dysphasia, possible reactivation of his myasthenia gravis gravis, although patient does have a history of esophageal stricture. GI was consulted as well as speech therapy. Modified barium swallow showed normal study, no evidence for aspiration or penetration. Once his other medical conditions improve, GI plans on upper endoscopy with dilatation. Hematology consult appreciated for leukocytosis additional lab work pending. 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 UA was positive for infection, continues on ceftriaxone. IV amiodarone was transitioned to oral 400 mg 3 times a day and continue metoprolol 25 mg twice a day, remains on heparin drip. Heart rate still running between 90-110 with atrial fibrillation noted on the monitor. 09/28: Patient evaluated this morning on rounds, noted to be sitting up in bed actively throwing up, deshaun red blood noted in the emesis bucket. His anticoagulation is on hold, GI consulted who plans on proceeding with upper endoscopy tomorrow morning. Hemoglobin is stable was 9.4 today. He is still having dysphasia and having to regularly clear his throat, only tolerating fluids at this point. Levothyroxine was lowered to 100 g daily. Repeat chest x-ray showed patchy perihilar and basilar infiltrates with significant interval progression. Blood cultures show no growth to date remains, ceftriaxone changed to Zosyn to cover aspiration pneumonia. 09/29: Patient underwent upper endoscopy along with bronchoscopy this morning for his progressive dysphagia and hemoptysis , he was found have a moderate sized hiatal hernia but no evidence of esophagitis or esophageal stricture. Bronchoscopy revealed blood clots in the right mainstem, but no active bleeding blood was also noted in the right lower lobe, no distinct lesion or mass are noted, fluid was sent for cytology and microbiology. After the procedure patient had difficulty weaning off the vent, and was unable to be extubated, he was then transferred to the ICU. 09/30: Patient ended up going for EGD and dilation along with bronchoscopy ended up in the ICU for worsening respiratory failure and possible aspiration, continue current management still been treated for aspiration pneumonia as well. Multiple clot found on the right mainstem along with the bronchial tube also patient had large Haldol hernia along with esophagitis being treated with PPI. Patient is not doing well his oxygenation has been down A. fib slightly better control but his prognosis still very guarded. 10/01: Patient ended up aspirating his indication and fluid still not doing well dysphagia hanna despite the EGD and Dialtation. Patient myasthenia gravis slightly red worse at this point whether patient will benefit from IVIG or plasma phoresis to be determined, consult neurology continue current management patient still in the intensive care unit require more help he is worsening than yesterday. Apparently pulmonary has spoke with the family about his CODE STATUS was changed DO NOT RESUSCITATE no PEG tube and no intubation. 10/02: Patient continued to aspirate require BiPAP with higher flow remain on BiPAP for the whole time still in the ICU had long discussion with the family today with his outcome is extremely low patient had refused intubation also refused PEG feeding family are talking about comfort care and end-of-life with hospice which will be initiated ICU and transfer patient out of the ICU and furthermore home if possible Objective - Vital Signs Vital signs: Vital Signs Temp 97 F L 10/02/20 04:00 Pulse 112 H 10/02/20 11:25 Resp 11 L 10/02/20 11:00 BP 81/52 10/02/20 11:00 Pulse Ox 92 L 10/02/20 11:00 Intake & Output 10/01/20 10/02/20 10/02/20 18:59 06:59 18:59 Intake Total 1067.22 1172.988 445.846 Output Total 275 432 120 Balance 792.22 740.988 325.846 Weight 76.1 kg Intake: IV 370 120 330 .9 kvo 70 120 30 Dextrose 5% in Water 1, 300 000 ml @ 75 mls/hr IV . [id number] Rx#:[id number] Sodium Chloride 0.9% 1, 300 000 ml @ 75 mls/hr IV . [id number] [facility] Rx#:[id number] Intake, IV Titration 697.22 1052.988 115.846 Amount Dextrose 5% in Water 1, 525 900 75 000 ml @ 75 mls/hr IV . [id number] [facility] Rx#:[id number] Heparin Sod,Pork in 0.45% 72.22 52.988 40.846 NaCl 25,000 unit In 0.45 % NaCl 1 250ml.bag @ 12 UNITS/KG/HR 9.42 mls/hr IV .Q24H [facility] Rx#: [id number] Piperacillin-Tazobactam 3 100 100 .375 gm In Sodium Chloride 0.9% 100 ml @ 25 mls/hr IVPB Q12HR [facility] Rx #:[id number] Output: Urine 275 432 120 Other: Voiding Method Indwelling Catheter Indwelling Catheter Indwelling Catheter - Exam ROS: CONSTITUTIONAL: Well-developed no acute respiratory distress. Still have any mask on EYES: No icterus sclerae, no conjunctivitis. EARS, NOSE, MOUTH, THROAT, and FACE: No sore throat, lymphadenopathy, carotid bruits or deformity. RESPIRATORY: Difficult shortness of breath and dyspnea with mild wheezes. CARDIOVASCULAR: Still have tachycardia no sign of angina positive PND and orthopnea GASTROINTESTINAL: Post EGD without patient still having mild dysphagia GENITOURINARY: Negative for Hematuria or UTI, no kidney stones. Mild BPH symptoms INTEGUMENT/BREAST: Negative for any muscular injury with mild osteoarthritis.. HEMATOLOGIC/LYMPHATIC: Negative for bleed or purpura. MUSCULOSKELTAL: Negative for Myalgia or arthralgia. NEURLOGICAL: Mild confusion, history of myasthenia gravis, history of Graves' disease and severe Ophtalmopathy BEHAVIORAL/PSYCH: Negative. ENDOCRINE: Negative. - Exam GENERAL EXAM: Alert, very pleasant, 82-year-old male patient, 8 L of oxygen, he has conversational dyspnea, but no acute distress HEAD: Normocephalic/atraumatic. EYES: Normal reaction of pupils, equal size. Conjunctiva pink, sclera white. NOSE: Clear with pink turbinates. THROAT: No erythema or exudates. NECK: No masses, no JVD, no thyroid enlargement, no adenopathy. CHEST: No chest wall deformity. Symmetrical expansion. LUNGS: Equal air entry with fine inspiratory crackles at bilateral bases, but no wheeze, rhonchi or dullness. CVS: Regular rate and rhythm, normal S1 and S2, no gallops, no murmurs, no rubs ABDOMEN: Soft, nontender. No hepatosplenomegaly, normal bowel sounds, no guarding or rigidity. EXTREMITIES: No clubbing, no edema, no cyanosis, 2+ pulses and upper and lower e xtremities. MUSCULOSKELETAL: Muscle strength and tone normal. SPINE: No scoliosis or deformity SKIN: No rashes CENTRAL NERVOUS SYSTEM: No focal deficits, tone is normal in all 4 extremities. PSYCHIATRIC: Alert and oriented -3. Appropriate affect. Intact judgment and insight. - Labs CBC & Chem 7: 10/02/20 04:11 10/02/20 04:11 Labs: Abnormal Lab Results - Last 24 Hours (Table) 09/29/20 09/29/20 09/29/20 Range/Units 06:16 08:04 09:42 WBC (3.8-10.6) k/uL RBC (4.30-5.90) m/uL Hgb (13.0-17.5) gm/dL Hct (39.0-53.0) % MCHC (31.0-37.0) g/dL RDW (11.5-15.5) % Plt Count (150-450) k/uL Neutrophils # (Manual) (1.3-7.7) k/uL Monocytes # (Manual) (0-1.0) k/uL Metamyelocytes # (Man) (0) k/uL Myelocytes # (Manual) (0) k/uL Nucleated RBCs (0-0) /100 WBC PT (9.0-12.0) sec INR (<1.2) APTT (22.0-30.0) sec Potassium (3.5-5.1) mmol/L Chloride (98-107) mmol/L Carbon Dioxide (22-30) mmol/L BUN (9-20) mg/dL Creatinine (0.66-1.25) mg/dL Glucose (74-99) mg/dL POC Glucose (mg/dL) 108 H 153 H 138 H (75-99) mg/dL 09/29/20 09/29/20 09/30/20 Range/Units 12:29 20:17 12:35 WBC (3.8-10.6) k/uL RBC (4.30-5.90) m/uL Hgb (13.0-17.5) gm/dL Hct (39.0-53.0) % MCHC (31.0-37.0) g/dL RDW (11.5-15.5) % Plt Count (150-450) k/uL Neutrophils # (Manual) (1.3-7.7) k/uL Monocytes # (Manual) (0-1.0) k/uL Metamyelocytes # (Man) (0) k/uL Myelocytes # (Manual) (0) k/uL Nucleated RBCs (0-0) /100 WBC PT (9.0-12.0) sec INR (<1.2) APTT (22.0-30.0) sec Potassium (3.5-5.1) mmol/L Chloride (98-107) mmol/L Carbon Dioxide (22-30) mmol/L BUN (9-20) mg/dL Creatinine (0.66-1.25) mg/dL Glucose (74-99) mg/dL POC Glucose (mg/dL) 154 H 184 H 120 H (75-99) mg/dL 09/30/20 09/30/20 10/01/20 Range/Units 16:59 20:23 06:37 WBC (3.8-10.6) k/uL RBC (4.30-5.90) m/uL Hgb (13.0-17.5) gm/dL Hct (39.0-53.0) % MCHC (31.0-37.0) g/dL RDW (11.5-15.5) % Plt Count (150-450) k/uL Neutrophils # (Manual) (1.3-7.7) k/uL Monocytes # (Manual) (0-1.0) k/uL Metamyelocytes # (Man) (0) k/uL Myelocytes # (Manual) (0) k/uL Nucleated RBCs (0-0) /100 WBC PT (9.0-12.0) sec INR (<1.2) APTT (22.0-30.0) sec Potassium (3.5-5.1) mmol/L Chloride (98-107) mmol/L Carbon Dioxide (22-30) mmol/L BUN (9-20) mg/dL Creatinine (0.66-1.25) mg/dL Glucose (74-99) mg/dL POC Glucose (mg/dL) 156 H 166 H 181 H (75-99) mg/dL 10/01/20 10/01/20 10/01/20 Range/Units 11:28 17:29 17:49 WBC (3.8-10.6) k/uL RBC (4.30-5.90) m/uL Hgb (13.0-17.5) gm/dL Hct (39.0-53.0) % MCHC (31.0-37.0) g/dL RDW (11.5-15.5) % Plt Count (150-450) k/uL Neutrophils # (Manual) (1.3-7.7) k/uL Monocytes # (Manual) (0-1.0) k/uL Metamyelocytes # (Man) (0) k/uL Myelocytes # (Manual) (0) k/uL Nucleated RBCs (0-0) /100 WBC PT (9.0-12.0) sec INR (<1.2) APTT 103.8 H* (22.0-30.0) sec Potassium (3.5-5.1) mmol/L Chloride (98-107) mmol/L Carbon Dioxide (22-30) mmol/L BUN (9-20) mg/dL Creatinine (0.66-1.25) mg/dL Glucose (74-99) mg/dL POC Glucose (mg/dL) 153 H 214 H (75-99) mg/dL 10/01/20 10/02/20 10/02/20 Range/Units 20:13 01:47 04:11 WBC 60.4 H* (3.8-10.6) k/uL RBC 3.00 L (4.30-5.90) m/uL Hgb 8.6 L (13.0-17.5) gm/dL Hct 28.7 L (39.0-53.0) % MCHC 30.0 L (31.0-37.0) g/dL RDW 17.2 H (11.5-15.5) % Plt Count 139 L (150-450) k/uL Neutrophils # (Manual) 47.10 H (1.3-7.7) k/uL Monocytes # (Manual) 8.46 H (0-1.0) k/uL Metamyelocytes # (Man) 0.60 H (0) k/uL Myelocytes # (Manual) 0.60 H (0) k/uL Nucleated RBCs 2 H (0-0) /100 WBC PT (9.0-12.0) sec INR (<1.2) APTT 76.0 H (22.0-30.0) sec Potassium (3.5-5.1) mmol/L Chloride (98-107) mmol/L Carbon Dioxide (22-30) mmol/L BUN (9-20) mg/dL Creatinine (0.66-1.25) mg/dL Glucose (74-99) mg/dL POC Glucose (mg/dL) 193 H (75-99) mg/dL 10/02/20 10/02/20 10/02/20 Range/Units 04:11 04:11 07:02 WBC (3.8-10.6) k/uL RBC (4.30-5.90) m/uL Hgb (13.0-17.5) gm/dL Hct (39.0-53.0) % MCHC (31.0-37.0) g/dL RDW (11.5-15.5) % Plt Count (150-450) k/uL Neutrophils # (Manual) (1.3-7.7) k/uL Monocytes # (Manual) (0-1.0) k/uL Metamyelocytes # (Man) (0) k/uL Myelocytes # (Manual) (0) k/uL Nucleated RBCs (0-0) /100 WBC PT 14.4 H (9.0-12.0) sec INR 1.5 H (<1.2) APTT (22.0-30.0) sec Potassium 5.2 H (3.5-5.1) mmol/L Chloride 126 H (98-107) mmol/L Carbon Dioxide 11 L (22-30) mmol/L BUN 81 H (9-20) mg/dL Creatinine 3.01 H (0.66-1.25) mg/dL Glucose 163 H (74-99) mg/dL POC Glucose (mg/dL) 220 H (75-99) mg/dL 10/02/20 10/02/20 10/02/20 Range/Units 08:44 09:25 11:53 WBC (3.8-10.6) k/uL RBC (4.30-5.90) m/uL Hgb (13.0-17.5) gm/dL Hct (39.0-53.0) % MCHC (31.0-37.0) g/dL RDW (11.5-15.5) % Plt Count (150-450) k/uL Neutrophils # (Manual) (1.3-7.7) k/uL Monocytes # (Manual) (0-1.0) k/uL Metamyelocytes # (Man) (0) k/uL Myelocytes # (Manual) (0) k/uL Nucleated RBCs (0-0) /100 WBC PT (9.0-12.0) sec INR (<1.2) APTT 51.0 H (22.0-30.0) sec Potassium (3.5-5.1) mmol/L Chloride (98-107) mmol/L Carbon Dioxide (22-30) mmol/L BUN (9-20) mg/dL Creatinine (0.66-1.25) mg/dL Glucose (74-99) mg/dL POC Glucose (mg/dL) 216 H 196 H (75-99) mg/dL Microbiology - Last 24 Hours (Table) 09/25/20 16:10 Blood Culture - Final Blood No Growth after 144 hours 09/29/20 07:15 Gram Stain - Final Bronchial Washings - Random Bronchial Washings Culture - Final Assessment and Plan Assessment: 1 new onset of A. fib/A flutter: Remain on amiodarone, still seeing cardiology still on metoprolol and anticoagulation which been holding oral anticoagulation until after testing are complete. Pulse rate slightly better today 2 severe dysphagia: Most likely secondary to myasthenia gravis, patient symptoms are much better had quite but recurrent aspiration and he is to stay nothing by mouth this point. 3 severe advanced myasthenia gravis: Patient is off steroid at this point still on Mestinon will need to see neurology and might require further management such as IVIG or plasma pheresis. No further management require this point per family requested not to transfer patient out of the area. 4 aspiration pneumonia: Worsening aspiration pneumonia require BiPAP for the whole time still on higher flow to his survival at this point is extremely low we'll continue supportive care beside his IV antibiotics. 5 COPD: With worsening symptoms continue O2 along with updraft treatment still on Solu-Medrol 60 mg IV every 6 hours.. 6 history of Graves' disease: Still on levothyroxine 75 g daily. 7 type 2 diabetes: Remain on Accu-Chek with sliding scales coverage was on oral Prandin as an outpatient we'll adjust his medication. 8 hypertension: Remain on metoprolol and Norvasc try to keep his systolic blood pressure below 140. 9 urinary tract infection with positive daily patient still on Zosyn currently. 10 chronic systolic congestive heart failure has been on M door metoprolol and diuretics. 11 hemoptysis patient be going for bronchoscopy and reevaluate after brought for any other abnormality. 12 hyperlipidemia: Remain on atorvastatin. 13 chronic pain management: Has been on hydrocodone as needed basis medication been held currently. CODE STATUS: DO NOT RESUSCITATE no intubation and no PEG tube. Family conference: Spoke with the family about patient's current condition and they're fully aware of his extreme high mortality and they're asking for comfort care palliative and furthermore hospice care. Pt on 10/02/2020. Patient Condition at Discharge: Stable Plan - Discharge Summary Discharge Rx Participant: No New Discharge Prescriptions: New Apixaban [Eliquis] 2.5 mg PO BID #60 tab No Action Gabapentin [Neurontin] 200 mg PO HS Atorvastatin [Lipitor] 10 mg PO QAM Sodium Bicarbonate Tab 650 mg PO DAILY PRN PRN Reason: Gi Upset Pyridostigmine [Mestinon] 60 mg PO TID PRN PRN Reason: urinary retention Fluticasone/Salmeterol [Advair 500-50 Diskus] 1 puff INHALATION RT-BID PRN PRN Reason: Shortness Of Breath Simethicone [Gas-X] 125 mg PO Q4H PRN PRN Reason: GAS Bismuth Subsalicylate [Pepto-Bismol] 524 mg PO Q1H PRN MDD 240MLS PRN Reason: Gi Upset HYDROcodone/APAP 10-325MG [[place] 10-325] 0.5 tab PO Q4HR PRN PRN Reason: Pain Omeprazole 20 mg PO DAILY Metoprolol Tartrate [Lopressor] 12.5 mg PO DAILY Albuterol Sulfate [Proair Hfa] 1 - 2 puff INHALATION RT-Q8H PRN PRN Reason: Shortness Of Breath Repaglinide [Prandin] 2 mg PO DAILY Pyridostigmine [place] [Pyridostigmine [place] ER] 180 mg PO BID Levothyroxine Sodium [Synthroid] 125 mcg PO DAILY amLODIPine [Norvasc] 5 mg PO DAILY PRN PRN Reason: BP >140 Discharge Medication List Atorvastatin [Lipitor] 10 mg PO QAM 11/09/16 [History] Gabapentin [Neurontin] 200 mg PO HS 11/09/16 [History] Fluticasone/Salmeterol [Advair 500-50 Diskus] 1 puff INHALATION RT-BID PRN 01/16/18 [History] Pyridostigmine [Mestinon] 60 mg PO TID PRN 01/16/18 [History] Sodium Bicarbonate Tab 650 mg PO DAILY PRN 01/16/18 [History] Albuterol Sulfate [Proair Hfa] 1 - 2 puff INHALATION RT-Q8H PRN 09/25/20 [Histo ry] Bismuth Subsalicylate [Pepto-Bismol] 524 mg PO Q1H PRN MDD 240MLS 09/25/20 [History] HYDROcodone/APAP 10-325MG [[place] 10-325] 0.5 tab PO Q4HR PRN 09/25/20 [History] Levothyroxine Sodium [Synthroid] 125 mcg PO DAILY 09/25/20 [History] Metoprolol Tartrate [Lopressor] 12.5 mg PO DAILY 09/25/20 [History] Omeprazole 20 mg PO DAILY 09/25/20 [History] Pyridostigmine [place] [Pyridostigmine [place] ER] 180 mg PO BID 09/25/20 [History] Repaglinide [Prandin] 2 mg PO DAILY 09/25/20 [History] Simethicone [Gas-X] 125 mg PO Q4H PRN 09/25/20 [History] amLODIPine [Norvasc] 5 mg PO DAILY PRN 09/25/20 [History] Apixaban [Eliquis] 2.5 mg PO BID #60 tab 09/26/20 [Rx] Follow up Appointment(s)/Referral(s): Eron Good MD [Primary Care Provider] - 1-2 days Activity/Diet/Wound Care/Special Instructions: Eliquis at discharge, Copay will be $43.50 per month. Patient is aware and agreeable. Discharge Disposition: - Preliminary Cause of Preliminary Cause of : Respiratory failure, Aspiration Pneumonia, A fib with RVR, and advanced MG
--- NOTE | 2020-10-12 09:47 | CDI ---
Documentation Clarification Form Date: 10/12/2020 09:26:47 AM From: Mai Sood RN, CCDS Admit Date: 09/25/2020 04:59:00 PM Patient Name: Zane Espinoza Visit Number: [id number] Discharge Date: 10/02/2020 05:21:00 PM ATTENTION: The Clinical Documentation Specialists (CDI) and [facility] Coding Staff appreciate your assistance in clarifying documentation. Please respond to the clarification below the line at the bottom and electronically sign. The CDI & [facility] Coding staff will review the response and follow-up if needed. Please note: Queries are made part of the Legal Health Record. If you have any questions, please contact the author of this message via ITS. Dr. Eron Good "Chest discomfort, elevated troponins, rule out possibility of non-ST elevated myocardial infarction" is documented in the 09/26 Pulmonary Consult and daily in the Pulmonary Progress notes until 10/02. To accurately reflect SOI/ROM of this patient the diagnosis needs to be definitively ruled in or ruled out. 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, chronic systolic CHF, DM2, Myasthenia Gravis, persistent Atrial Fib, Atypical Atrial Flutter, DIOGENES, Aspiration Pneumonia, COPD, Graves disease, HLD Clinical Indicators: 09/25 Troponin: .052/.055 09/25 1424 EKG Results: Wide complex ST 09/25 1451 EKG: Atrial Fib Treatment: 09/25-10/02 Heparin Bolus and Gtt per Protocol 09/25 Amio Bolus and Gtt followed by protocol 09/25 Cardizem bolus and Gtt @ 5 mg/hr 09/26-09/27 Eliquis 2.5 mg PO BID, resumed for 1 dose on 09.30-09/28 Lipitor 10 mg Q am 09/27-09/29 Apresoline 25 mg PO TID 09/28-09/30 Imdur 30 mg PO QD 09/26-09/30 Lopressor 25 mg PO BID 09/25 0.9%NS 500 cc IVF bolus followed by 75 cc/hr until 10/01 0645 09/26 Cardiology Consult:"Abnormal troponins, may secondary to CKD, troponins are flat and not suggestive of ACS." In order to capture the severity of condition and necessary documentation specificity, please clarify: NSTEMI Ruled out NSTEMI Ruled in Unable to determine Other Condition, please specify Episode of Care: Initial Episode Subsequent Episode xxUnable to determine Other, please specify Age of infarction if known Acute DE (within the last 4 weeks) Subsequent DE (another DE within 4 weeks) New Acute DE - (another DE after 4 weeks) Old DE (DE more than 4 weeks old) Specific date if known: Unable to determine Site of myocardial injury, if known: Anterior wall Inferior wall Lateral wall Posterior wall Septal wall Other, please specify Unable to determine Coronary artery involved, if known: Right Coronary Artery Acute Marginal Artery Right Posterior Descending Artery Left Coronary Artery Left Anterior Descending Artery Left Circumflex Artery Other, please specify Unable to determine (Last Revision: July 2017) MTDD
--- NOTE | 2020-10-12 10:17 | CDI ---
Documentation Clarification Form Date: 10/12/2020 09:56:46 AM From: Mai Sood RN, CCDS Admit Date: 09/25/2020 04:59:00 PM Patient Name: Zane Espinoza Visit Number: [id number] Discharge Date: 10/02/2020 05:21:00 PM ATTENTION: The Clinical Documentation Specialists (CDI) and [facility] Coding Staff appreciate your assistance in clarifying documentation. Please respond to the clarification below the line at the bottom and electronically sign. The CDI & [facility] Coding staff will review the response and follow-up if needed. Please note: Queries are made part of the Legal Health Record. If you have any questions, please contact the author of this message via ITS. Dr. Eron Good Sepsis has been documented in the Attending Progress notes from 09/30 into the D/C Summary for 10/02, please indicate if it is possible this diagnosis was POA. The patient presented with left sided pneumonia and new onset atypical atrial flutter. History/Risk Factors: Myasthenia gravis, Graves Disease, DM2, MO, HTN, Pneumonia Clinical Indicators: 09/25-10/02 WBC: 35.7/36.3/40.9/48.5/50.8/46.2/43.4/60.4 09/25 Lactic acid: 1.9 09/25 Blood cultures: negative x 1 09/29 Bronch Washings: Fungal Cx + Jocelyn albicans End organ dysfunction: DIOGENES, Acute hypoxic respiratory failure Vitals signs on admission: Temp 97.8, HR 149, RR 22, B/P 121/91, Spo2 98% 2L NC Documented infection: Aspiration pneumonia Treatment: ID Consult: not ordered Antibiotics: 09/28-10/02 Zosyn 3.375 gm IVPB q 12 hrs 09/26-09/28 Ceftriaxone 1 gm IVPB Q 24 hrs 09/25 IV Zithromax 500 mg OT 09/25 IVF Bolus 500 cc 0.9% NS In your professional opinion, please clarify if these findings signify one of the following conditions, whether the condition is POA, and cause, if known: Condition Sepsis ruled out xx Sepsis Severe Sepsis Septic Shock Other, please specify Unable to determine Present on Admission x Yes No Identify the (suspected) organism Link or clarify if there is associated (due to/with): Organ failure Shock SIRS Criteria (2 or more of the following may indicate SIRS): -Temperature < 96.8F (36C) or > 101.0F (38.3C) -Heart Rate > 90 bpm -Respiratory Rate > 20 breaths/min or PaCO2 < 32 mmHg -White Blood Cell Count > 12,000 or < 4,000 cells/mm3 or > 10% bands -Lactate >2.0 mmol/L (>4.0 is equivalent to septic shock) (Last Revision: January 2018) MTDD
== END 2020-10-02 17:21 | disposition expired | DRG 871 ==
LOC: EC 14:23 → 3SCARD 16:59 → 2SICU 09-29 09:37
PROVIDERS: ADMIT Family Medicine; ATTEND Family Medicine
PROC: 0DJ08ZZ Inspection of Upper Intestinal Tract, Via Natural or Artificial Opening Endoscopic (ICD-10-PCS; 2020-09-29)
PROC: 0BH17EZ Insertion of Endotracheal Airway into Trachea, Via Natural or Artificial Opening (ICD-10-PCS; principal; 2020-09-29 07:00)
PROC: 5A1935Z Respiratory Ventilation, Less than 24 Consecutive Hours (ICD-10-PCS; principal; 2020-09-29 07:00)
PROC: 0B9F8ZZ Drainage of Right Lower Lung Lobe, Via Natural or Artificial Opening Endoscopic (ICD-10-PCS; 2020-09-29 07:00)
PROC: 0B9G8ZZ Drainage of Left Upper Lung Lobe, Via Natural or Artificial Opening Endoscopic (ICD-10-PCS; 2020-09-29 07:00)
PROC: 0B9J8ZZ Drainage of Left Lower Lung Lobe, Via Natural or Artificial Opening Endoscopic (ICD-10-PCS; 2020-09-29 07:00)
PROC: 0B9F8ZX Drainage of Right Lower Lung Lobe, Via Natural or Artificial Opening Endoscopic, Diagnostic (ICD-10-PCS; 2020-09-29 07:00)
PROC: 0B938ZZ Drainage of Right Main Bronchus, Via Natural or Artificial Opening Endoscopic (ICD-10-PCS; 2020-09-29 07:00)
PROC: 0B9H8ZZ Drainage of Lung Lingula, Via Natural or Artificial Opening Endoscopic (ICD-10-PCS; 2020-09-29 07:00)
PROC: 5A09457 Assistance with Respiratory Ventilation, 24-96 Consecutive Hours, Continuous Positive Airway Pressure (ICD-10-PCS; 2020-09-30)
DX: A41.9 Sepsis, unspecified organism (principal); J69.0 Pneumonitis due to inhalation of food and vomit; J96.01 Acute respiratory failure with hypoxia; N17.9 Acute kidney failure, unspecified; I13.0 Hypertensive heart and chronic kidney disease with heart failure and stage 1 through stage 4 chronic kidney disease, or unspecified chronic kidney disease; I50.22 Chronic systolic (congestive) heart failure; I48.4 Atypical atrial flutter; R04.2 Hemoptysis; N39.0 Urinary tract infection, site not specified; E87.2 Acidosis; K82.1 Hydrops of gallbladder; I48.21 Permanent atrial fibrillation; I25.10 Atherosclerotic heart disease of native coronary artery without angina pectoris; Z66 Do not resuscitate; Z51.5 Encounter for palliative care; E03.9 Hypothyroidism, unspecified; E78.5 Hyperlipidemia, unspecified; K21.00 Gastro-esophageal reflux disease with esophagitis, without bleeding; E11.22 Type 2 diabetes mellitus with diabetic chronic kidney disease; Z96.653 Presence of artificial knee joint, bilateral; I44.7 Left bundle-branch block, unspecified; Z20.828 Contact with and (suspected) exposure to other viral communicable diseases; I27.20 Pulmonary hypertension, unspecified; N18.30 Chronic kidney disease, stage 3 unspecified; M19.90 Unspecified osteoarthritis, unspecified site; I25.5 Ischemic cardiomyopathy; K44.9 Diaphragmatic hernia without obstruction or gangrene; R13.12 Dysphagia, oropharyngeal phase; G70.00 Myasthenia gravis without (acute) exacerbation; E05.00 Thyrotoxicosis with diffuse goiter without thyrotoxic crisis or storm; G89.29 Other chronic pain; J44.9 Chronic obstructive pulmonary disease, unspecified; I77.819 Aortic ectasia, unspecified site; K59.00 Constipation, unspecified; R63.3 Feeding difficulties; Z79.890 Hormone replacement therapy; Z79.01 Long term (current) use of anticoagulants; Z79.899 Other long term (current) drug therapy; I25.2 Old myocardial infarction; Z90.49 Acquired absence of other specified parts of digestive tract; Z90.89 Acquired absence of other organs; Z98.890 Other specified postprocedural states; Z98.42 Cataract extraction status, left eye; Z98.41 Cataract extraction status, right eye; Z87.891 Personal history of nicotine dependence; Z85.828 Personal history of other malignant neoplasm of skin; Z80.8 Family history of malignant neoplasm of other organs or systems; Z80.0 Family history of malignant neoplasm of digestive organs; Z92.3 Personal history of irradiation; Z87.01 Personal history of pneumonia (recurrent)
CPT/HCPCS: 31624; 36415; 36600; 43235; 71045; 74230; 76700; 80048; 80053; 81001; 82607; 82728; 82747; 82805; 83036; 83540; 83550; 83605; 83690; 83735; 83880; 83921; 84145; 84439; 84443; 84484; 84550; 85025; 85610; 85730; 87040; 87070; 87102; 87116; 87205; 87206; 87252; 87496; 87498; 87502; 87529; 87634; 87635; 87798; 88108; 88305; 89050; 93005; 93306; 94640; 94660; 96365; 96366; 96368; 96375; 99291